=== PATIENT | male | born 1935 | race Caucasian/White ===

== ENCOUNTER → 2017-11-19 | Outpatient (CLI) | payer BC ==
[~2017-11-19] MED LIST: ASPEC81 PO; CHOL1000 PO; COQ10100 PO; FLV1 PO; GLC/500 PO; LOSA1TAB38 PO; METH2.5T PO; METO25TA56 PO; OMEG10007 PO; PRT/20 PO; ROSU5TAB PO; levaquin PO
--- NOTE | 2017-11-19 09:42 | DIAGNOSTIC IMAGING REPORT ---
CHEST 2 VIEWS ROUTINE CLINICAL HISTORY: COUGH COMPARISON STUDY: 01/29/2016 FINDINGS: The cardiac and mediastinal contours remain stable. There are postsurgical changes of a midline sternotomy. The heart is normal in size. There is no failure. There is no focal pulmonary consolidation. There are no pleural effusions. There are linear subsegmental atelectatic changes at the left lung base.[ IMPRESSION: Linear subsegmental atelectatic changes at the left lung base. Otherwise negative chest. Electronically signed by: Osmar Hercules M.D. 11/19/2017 9:41 AM Dictated Date/Time: 11/19/2017 9:40 AM
== END | disposition home or self-care (01) ==
LOC: C.RAD1850 09:24
PROVIDERS: ATTEND Family Medicine
DX: R05 Cough (principal); J98.11 Atelectasis

== ENCOUNTER → 2018-03-12 | Outpatient (CLI) | payer BC ==
[~2018-03-12] MED LIST changes: +AMLO2.5T PO; +B-CO1CAP5 PO; +PRED-301 PO
--- NOTE | 2018-03-12 13:38 | DIAGNOSTIC IMAGING REPORT ---
LUMBAR SPINE W/O CONTRAST HISTORY: Pain M48.061 TECHNIQUE: Multiplanar multisequence MRI of the lumbar spine was performed without the use of contrast. COMPARISON: None. FINDINGS: For the purpose of the report the L5-S1 disc space will be located on axial image of 30. Severe degenerative intervertebral disc change throughout the entire lumbar region. Grade 1/grade 2 retrolisthesis of L5 on S1 with a maximum posterior displacement of 6 mm. Degenerative changes of the vertebral endplates throughout. L1-L2: No significant central canal or neural foraminal narrowing. L2-L3: Broad-based bulging disc combined with posterior osteophytic reaction. Mild impact anterior aspect of thecal sac with mild osteophytic narrowing of the neuroforamina bilaterally. L3-L4: Moderate multifactorial narrowing of the spinal canal. Broad-based disc herniation accentuated by grade 1 anterolisthesis of L2 on L3. Moderate to rather significant narrowing of the neuroforamina bilaterally. Degenerative change posterior facets. L4-L5: Significant multifactorial spinal stenosis. This is secondary to a grade 1 reversal spondylolisthesis of L5. Severe narrowing of the neuroforamina bilaterally. Considerable degenerative change posterior facets. L5-S1: Moderate impact anterior thecal sac secondary to the grade 1 retrolisthesis of L5 on S1. Moderate narrowing of the neuroforamina bilaterally. Mild degenerative change posterior elements. IMPRESSION: 1. Severe degenerative change throughout the entire lumbar region. 2. Reversal spondylolisthesis of L5 on S1. 3. Minimal grade 1 anterolisthesis of L3 on L4. 4. Significant to severe multifactorial spinal stenosis L4-L5. This is associated with severe narrowing of the neuroforamina bilaterally. 5. Moderate multifactorial narrowing of spinal canal at L3-L4. This is combined with moderate to significant narrowing of the neuroforamina bilaterally. 6. Broad-based bulging disc and degenerative change throughout all remaining levels of lumbar region. The above report was generated using voice recognition software. It may contain grammatical, syntax or spelling errors. Electronically signed by: Gómez Garland M.D. 03/12/2018 1:37 PM Dictated Date/Time: 03/12/2018 1:28 PM
== END | disposition home or self-care (01) ==
LOC: C.MRIBC 12:21
PROVIDERS: ATTEND Orthopaedic Surgery Orthopaedic Surgery of the Spine
DX: M48.061 Spinal stenosis, lumbar region without neurogenic claudication (principal)

== ENCOUNTER → 2018-03-27 | Day surgery (SDC) | payer BC ==
[2018-03-19 14:11] VITALS: Ht 170.2 cm; Wt 72.7 kg
[~2018-03-27] VITALS: Ht 170.2 cm; Wt 72.7 kg
[~2018-03-27] MED LIST changes: +DEXAMETHASONE SOD INJ 4 MG/ML VIAL ONE; +LIDOCAINE HCL 1% MPF 5 ML VIAL ONE; -levaquin PO
--- NOTE | 2018-03-27 07:37 | History & Physical Bridge - SC ---
H&P Re-Evaluation Bridge Note: I have examined the patient, reviewed the History & Physical and in the interval since the performance of the History & Physical I have noted the following changes of clinical significance: No changes noted
--- NOTE | 2018-03-27 07:48 | Discharge Instructions-SurgCtr ---
Discharge Instructions Date of Service Mar 27, 2018. Visit Reason for Visit: Degenration Of Lumbar Intervertebral Disc Discharge Discharge Diagnosis / Problem: same Discharge Goals Goal(s): Improve function Activity Recommendations Activity Limitations: resume your previous activity Anesthesia . Post Anesthesia Instructions: If you have had General Anesthesia or IV Sedation: * Do not drive today. * Resume driving when surgeon permits. * Do not make important decisions or sign legal documents today. * Call surgeon for: 1. Temperature elevations greater than 101 degrees F. 2. Uncontrollable pain. 3. Excessive bleeding. 4. Persistent nausea and vomiting. 5. Medication intolerance (nausea, vomiting or rash). * For nausea and vomiting use only clear liquids such as: tea, soda, bouillon until nausea subsides, then gradually increase diet as tolerated. * If you have any concerns or questions, call your surgeon's office. If physician is unavailable and it is an emergency, call 911 or go to the nearest emergency room. . Diet Recommendations Home Diet: no limitations Pending Studies Studies pending at discharge: no Medical Emergencies . Who to Call and When: Medical Emergencies: If at any time you feel your situation is an emergency, please call 911 immediately. . Non-Emergent Contact Non-Emergency issues call your: Primary Care Provider . . "Provider Documentation" section prepared by Rob Dietrich. .
--- NOTE | 2018-03-27 08:11 | [facility] Post Operative Brief Note ---
Immediate Operative Summary Operative Date Mar 27, 2018. Pre-Operative Diagnosis LUMBAR SPONDYLOSIS Post-Operative Diagnosis SAME PREOP Procedure(s) Performed Epidural Steroid Injections L4-L5, L5-S1 Surgeon DR. Wilmar BOYLE Floor Layer Helper Surgeon(s) NONE Estimated Blood Loss 0 ML Findings Consistent with Post-Op Diagnosis Specimens NONE Anesthesia Type Local
[2018-03-27 08:14] VITALS: TEMP 37
[2018-03-27 08:34] VITALS: BP 155/82; PULSE 70; O2SAT 95
--- NOTE | 2018-03-27 08:34 | OPERATIVE REPORT ---
DATE OF OPERATION: 03/27/2018 PREOPERATIVE DIAGNOSIS: Spinal stenosis. POSTOPERATIVE DIAGNOSIS: Spinal stenosis. PROCEDURE: Epidural steroid injections, L4-L5, L5-S1 using a volume acceptance. DESCRIPTION OF PROCEDURE: The patient was taken to the minor procedure room at the surgical center. Prepped and draped sterile. I was able to engage the 22-gauge Tuohy needle to the epidural space at L4-L5 and L5-S1, 1 mL dexamethasone injected to each area without incident. The patient discharged home in improved, stable. I attest to the content of the Intraoperative Record and any orders documented therein. Any exception s are noted below.
== END | disposition home or self-care (01) ==
LOC: X.SURG 06:41
PROVIDERS: ATTEND Orthopaedic Surgery Orthopaedic Surgery of the Spine
DX: M48.00 Spinal stenosis, site unspecified (principal); I10 Essential (primary) hypertension; E11.9 Type 2 diabetes mellitus without complications

== ENCOUNTER 2019-09-21 22:31 | Observation (INO) ==
[2019-09-21] MEDS ORDERED: SODIUM CHLORIDE 0.9% 500 ML IV ONE (22:48)
[2019-09-21] MEDS ORDERED: METOPROLOL TARTRATE 1 MG/ML VIAL IV STA ×2 (22:48→23:32)
[2019-09-21 22:56] LABS: Basophils # (auto) 0.07 K/uL (0-0.2); Basophils % (auto) 0.9 %; Eosinophils # (auto) 0.55 K/uL (0-0.5); Eosinophils % (auto) 7.2 %; Hematocrit (blood only) 31.5 % (42-52); Hemoglobin 9.8 g/dL (14.0-18.0); Immature Granulocytes # (auto) 0.03 K/uL (0.00-0.02); Immature Granulocytes % (auto) 0.4 %; Lymphocytes # (auto) 1.51 K/uL (1.2-3.4); Lymphocytes % (auto) 19.9 %; Mean Corpuscular Hemoglobin 29.3 pg (25-34); Mean Corpuscular Hgb Conc 31.1 g/dL (32-36); Mean Corpuscular Volume 94.3 fL (80-100); Mean Platelet Volume 8.3 fL (7.4-10.4); Monocytes # (auto) 0.44 K/uL (0.11-0.59); Monocytes % (auto) 5.8 %; Neutrophils # (auto) 4.99 K/uL (1.4-6.5); Neutrophils % (auto) 65.8 %; Platelet Count 490 K/uL (130-400); RDW Coefficient of Variation 16.1 % (11.5-14.5); RDW Standard Deviation 54.9 fL (36.4-46.3); Red Blood Count 3.34 M/uL (4.7-6.1); White Blood Count 7.59 K/uL (4.8-10.8)
[2019-09-21 23:14] LABS: INR 1.1 (0.9-1.1); Partial Thromboplastin Time 27.6 Seconds (21.0-31.0); Prothrombin Time 11.1 Seconds (9.0-12.0)
[2019-09-21 23:16] LABS: BUN Creatinine Ratio 16.4 (10-20); Calcium 8.5 mg/dl (8.5-10.1); Creatinine Clr Calc Pharmacy 47.8 ml/min; Est GFR (African American) 68.3; Est GFR (Non-African American) 58.9; Potassium 4.1 mmol/L (3.5-5.1)
[2019-09-21 23:20] LABS: Albumin Globulin Ratio 0.8 (0.9-2); Bilirubin,Total 0.2 mg/dl (0.2-1); Globulin 3.7 gm/dl (2.5-4.0); Total Protein 6.7 gm/dl (6.4-8.2); Troponin I 0.022 ng/ml (0-0.045)
--- NOTE | 2019-09-22 00:52 | History & Physical Report ---
Date of Service September 22, 2019 Assessment & Plan (1) Atrial fibrillation with RVR: Atrial fibrillation with RVR/CAD/hypertension/lower extremity edema- Continue apixaban 5 mg p.o. twice daily, aspirin 81 mg daily, metoprolol tartrate 50 mg p.o. twice daily and telmisartan 40 mg p.o. daily. Hold amlodipine. He reports having had an echocardiogram about 3 to 4 months ago, prior to his recent lumbar spine surgery. He was given Lopressor 5 mg IV x2 by the ED with improved rate control. Consult his ground support equipment fitter Dr. Medel. Present on Admission?: Yes (2) CAD (coronary artery disease): See above Present on Admission?: Yes (3) Hypertension: See above Present on Admission?: Yes (4) Type 2 diabetes mellitus: Hold metformin. Placed on Accu-Cheks before meals and at bedtime with NovoLog coverage per scale. Present on Admission?: Yes (5) Rheumatoid arthritis: On methotrexate 15 mg p.o. weekly, which will be held. Continue folic acid 1 mg p.o. daily except methotrexate day. He typically takes prednisone 5 mg p.o. every morning. Will briefly increase his dosing to 10 mg to partially address adrenal insufficiency, and plan to discharge on his usual 5 mg dosing. Present on Admission?: Yes (6) GERD (gastroesophageal reflux disease): Continue pantoprazole 40 mg daily Present on Admission?: Yes (7) Lumbar stenosis with neurogenic claudication: Patient is status post surgery approximately 2 half weeks ago at [facility]. He is walking almost back to his usual pace. He had been taking pain medications regularly, but only as needed at this point. Present on Admission?: Yes (8) Benign prostatic hyperplasia with urinary obstruction: He is not on any specific treatment at this time, and denies symptoms. Present on Admission?: Yes History of Present Illness Chief Complaint: The patient presents to the emergency department with symptomatic palpitations, where he felt lightheaded and dizzy, similar to episode which happened in 2018. Primary Care Provider: Carlos Kraft DO The patient is an 84-year-old male with a past medical history including atrial fibrillation, BPH with OBS/LUTS, lumbar spinal stenosis with neurogenic claudication, history of CABG, CAD, diabetes mellitus type 2, hypertension and rheumatoid arthritis. He presents to the emergency department with an episode of symptomatic palpitations, where he was aware of his heart beating fast and irregularly, and felt lightheaded and dizzy. He reports when he checked his blood pressure at home his heart rate was around 145. He has similar episode in 2018, where he was in the hospital for 2 days. He follows with Dr. Medel from cardiology. He takes his Eliquis twice daily as directed. Allergies Allergy/AdvReac Type Severity Reaction Status Date / Time No Known Allergies Allergy Mild NONE Verified 09/21/19 23:14 Home Medications Home Medications Medication Instructions Recorded Confirmed Type B-complex with vitamin C [Super B 1 tab PO QAM 08/07/18 09/21/19 History Complex-Vitamin C] amlodipine [Norvasc] 2.5 mg PO QAM 08/07/18 09/21/19 History aspirin 81 mg PO HS 08/07/18 09/21/19 History cholecalciferol (vitamin D3) 1,000 unit PO QAM 08/07/18 09/21/19 History [Vitamin D3] coenzyme Q10 [CoQ-10] 100 mg PO QPM 08/07/18 09/21/19 History folic acid 1 mg PO QPM 08/07/18 09/21/19 History methotrexate sodium 15 mg PO WK 08/07/18 09/21/19 History olmesartan 40 mg PO QAM 08/07/18 09/21/19 History pantoprazole [Protonix] 40 mg PO QPM 08/07/18 09/21/19 History prednisone 5 mg PO QAM 08/07/18 09/21/19 History rosuvastatin [Crestor] 10 mg PO QPM 08/07/18 09/21/19 History apixaban 5 mg tablet 5 mg PO BID tab 09/04/18 09/21/19 History metoprolol tartrate 50 mg tablet 50 mg PO BID tab 09/04/18 09/21/19 History diphenhydramine HCl [Allergy] 25 mg PO HS 09/21/19 09/21/19 History hydrocodone-acetaminophen 1 tab PO Q4 PRN 09/21/19 09/21/19 History metformin 500 mg PO QPM 09/21/19 09/21/19 History omega 7-kpm-nol-fish oil [Fish Oil] 1 cap PO HS 09/21/19 09/21/19 History Past Med/Surg History Medical History A-fib PAROXYSMAL; ON APIXABAN Benign prostatic hyperplasia with urinary obstruction CAD (coronary artery disease) S/P CABG X 3 (2006) Chronic back pain Dysuria Hyperlipidemia Hypertension Myocardial Infarction S/P CABG X 3 (2006) Rheumatoid arthritis Sleep apnea NON-COMPLIANT WITH MACHINE Type 2 diabetes mellitus NIDDM Surgical History H/O repair of left rotator cuff X 2 H/O repair of right rotator cuff History of cataract extraction BILAT History of cholecystectomy History of colonoscopy History of esophagogastroduodenoscopy (EGD) History of tooth extraction Hx of CABG S/P CABG X 3 (2006) S/P left knee arthroscopy Family History Sister Family history of diabetes mellitus Social History Preferred Language: Citizen Of [place] Communication Ability: Effective Visual Impairment: Limited Hearing Ability: Normal Seo Team Lead Required: No Beliefs That Will Affect Care: None marital status: Current Living Situation: Spouse current occupational status: retired Other Information That Helps Us Care for You: No Feels Safe at Home: Yes Safety Concerns: Feels Safe At This Time Smoking Status: Never smoker Tobacco Type: cigarettes ; Do You Dip or Chew Tobacco: No ; Second Hand Exposure: No ; Tobacco Cessation Education Requested by Patient: No Hx Alcohol Use: No Hx Substance Use: No Review of Systems Review of Systems: The patient denies chest pain, shortness of breath, dyspnea on exertion, cough, lower extremity swelling, sore throat, fevers, chills, sweats, nausea, vomiting, diarrhea , constipation, abdominal pain, pelvic pain, blood in urine or stool, dysuria, urinary frequency or urgency, headache, memory loss, loss of consciousness, rash, abnormal bruising or bleeding, imbalance, focal or generalized weakness, numbness or tingling in arms or legs, generalized arthralgias or myalgias, back or neck pain, or night sweats. The review of systems is otherwise negative other than for that already noted above, and at least 10 systems have been reviewed. Physical Exam Physical Exam: The patient is awake, alert and oriented 3, well developed and well nourished, normocephalic and atraumatic, lying in bed and in no acute distress. HEENT--PERRL, EOMI, mucous membranes and oropharynx dry. Neck--supple. No JVD. No bruits. Thyroid normal, trachea midline, no adenopathy. Heart--irregularly irregular and tachycardic. No murmurs, rubs or gallops. Lungs--clear bilaterally, no respiratory distress, no accessory muscle use. Abdomen--normal bowel sounds and soft. Nontender. Nondistended, no hernias or masses, no organomegaly. Extremities--no cyanosis or clubbing. There is 1+ bilateral pretibial pitting edema. There are good distal pulses b/l. Dermatologic--normal skin turgor, normal color, no abnormal lymph nodes, no rash. Neurologic--cranial nerves II through XII grossly intact. Rheumatologic--normal range of motion. Psychiatric--normal affect. Results & Data Vital Signs (Past 12 Hours) Vital Signs Temp Pulse Pulse Resp BP BP Pulse Ox 09/22/19 00:46 122 H 20 104/66 95 09/21/19 23:41 105 H 20 100/67 94 09/21/19 23:40 107 H 100/67 09/21/19 23:13 107 H 20 112/72 96 09/21/19 22:57 123 H 126/85 09/21/19 22:48 96 09/21/19 22:42 98.2 F 127 H 24 126/85 96 Laboratory Results Laboratory Results WBC 7.59 K/uL (4.8-10.8) 09/21/19 22:46 RBC 3.34 M/uL (4.7-6.1) L 09/21/19 22:46 Hgb 9.8 g/dL (14.0-18.0) L 09/21/19 22:46 Hct 31.5 % (42-52) L 09/21/19 22:46 MCV 94.3 fL (80-100) 09/21/19 22:46 MCH 29.3 pg (25-34) 09/21/19 22:46 MCHC 31.1 g/dL (32-36) L 09/21/19 22:46 RDW Std Deviation 54.9 fL (36.4-46.3) H 09/21/19 22:46 RDW Coeff of Ari 16.1 % (11.5-14.5) H 09/21/19 22:46 Plt Count 490 K/uL (130-400) H 09/21/19 22:46 MPV 8.3 fL (7.4-10.4) 09/21/19 22:46 Immature Gran % (Auto) 0.4 % 09/21/19 22:46 Neut % (Auto) 65.8 % 09/21/19 22:46 Lymph % (Auto) 19.9 % 09/21/19 22:46 [place]ding % (Auto) 5.8 % 09/21/19 22:46 Eos % (Auto) 7.2 % 09/21/19 22:46 Baso % (Auto) 0.9 % 09/21/19 22:46 Immature Gran # (Auto) 0.03 K/uL (0.00-0.02) H 09/21/19 22:46 Neut # (Auto) 4.99 K/uL (1.4-6.5) 09/21/19 22:46 Lymph # (Auto) 1.51 K/uL (1.2-3.4) 09/21/19 22:46 Spalding # (Auto) 0.44 K/uL (0.11-0.59) 09/21/19 22:46 Eos # (Auto) 0.55 K/uL (0-0.5) H 09/21/19 22:46 Baso # (Auto) 0.07 K/uL (0-0.2) 09/21/19 22:46 PT 11.1 Seconds (9.0-12.0) 09/21/19 22:46 INR 1.1 (0.9-1.1) 09/21/19 22:46 APTT 27.6 Seconds (21.0-31.0) 09/21/19 22:46 PTT Ratio 1.0 09/21/19 22:46 Sodium 136 mmol/L (136-145) 09/21/19 22:46 Potassium 4.1 mmol/L (3.5-5.1) 09/21/19 22:46 Chloride 103 mmol/L (98-107) 09/21/19 22:46 Carbon Dioxide 29 mmol/L (21-32) 09/21/19 22:46 Anion Gap 4.0 (3-11) 09/21/19 22:46 BUN 19 mg/dl (7-18) H 09/21/19 22:46 Creatinine 1.13 mg/dl (0.6-1.4) 09/21/19 22:46 Est Cr Clr Drug Dosing 47.8 ml/min 09/21/19 22:46 Est GFR ( Amer) 68.3 09/21/19 22:46 Est GFR (Non-Af Amer) 58.9 09/21/19 22:46 BUN/Creatinine Ratio 16.4 (10-20) 09/21/19 22:46 Glucose 192 mg/dl (70-99) H 09/21/19 22:46 Calcium 8.5 mg/dl (8.5-10.1) 09/21/19 22:46 Magnesium 2.2 mg/dl (1.8-2.4) 09/22/19 02:05 Total Bilirubin 0.2 mg/dl (0.2-1) 09/21/19 22:46 AST 17 U/L (15-37) 09/21/19 22:46 ALT 26 U/L (12-78) 09/21/19 22:46 Alkaline Phosphatase 122 U/L (45-117) H 09/21/19 22:46 Troponin I 0.313 ng/ml (0-0.045) H* 09/22/19 02:05 Total Protein 6.7 gm/dl (6.4-8.2) 09/21/19 22:46 Albumin 3.0 gm/dl (3.4-5.0) L 09/21/19 22:46 Globulin 3.7 gm/dl (2.5-4.0) 09/21/19 22:46 Albumin/Globulin Ratio 0.8 (0.9-2) L 09/21/19 22:46 Lipase 397 U/L (73-393) H 09/21/19 22:46 Code Status & VTE Plan Code Status Full code VTE Prophylaxis Plan VTE Prophylaxis will be ordered: Yes PG Care Time/CCT Total # of Minutes Spent Total Time Spent with Patient: Total time spent is greater than 50% in coordination of care (as documented) at patient's floor/unit and/or counseling patient: Coding Level of Care Code 00632 Initial Inpt Care Lvl 3 Diagnoses Atrial fibrillation with RVR I48.91 CAD (coronary artery disease) I25.10 Hypertension I10 Type 2 diabetes mellitus E11.9 Rheumatoid arthritis M06.9 GERD (gastroesophageal reflux disease) K21.9 Lumbar stenosis with neurogenic claudication M48.062 Benign prostatic hyperplasia with urinary obstruction N40.1; N13.8
--- NOTE | 2019-09-22 01:03 | Emergency Department Note ---
Entered by Alee Moise acting as a scribe for History of Present Illness General Chief complaint: Arrhythmia/Palpitations Stated complaint: TACHYCARDIA Source: patient History of Present Illness Onset (ago): minute(s) (30) Location: chest Pain Consistency: + constant Quality: + other (increased heart race) Associated symptoms: + headaches and + other (lightheadedness, pain or burning with urination, feelings of being off balance); no nausea/vomiting and no shortness of breath The patient is a 84 year old male who presents to the Emergency Room with complaints of an constant increased heart rate beginning 30 minutes ago. The patient states he was walking around in his home when he felt his pulse racing and called EMS. He reports a headache. The patient denies lightheadedness, shortness of breath, nausea, vomiting, pain or burning with urination, and feelings of being off balance. The patient reports similar symptoms previously. He notes that it was his a-fib. The patient reports he took his evening and morning pills in reverse tonight. The patient denies missing any doses of his E liquis. He does report recent back surgery and states he was off of his Eliquis for five days following. Home Medications Home Medications Medication Instructions Recorded Confirmed Type B-complex with vitamin C [Super B 1 tab PO QAM 08/07/18 09/21/19 History Complex-Vitamin C] amlodipine [Norvasc] 2.5 mg PO QAM 08/07/18 09/21/19 History aspirin 81 mg PO HS 08/07/18 09/21/19 History cholecalciferol (vitamin D3) 1,000 unit PO QAM 08/07/18 09/21/19 History [Vitamin D3] coenzyme Q10 [CoQ-10] 100 mg PO QPM 08/07/18 09/21/19 History folic acid 1 mg PO QPM 08/07/18 09/21/19 History methotrexate sodium 15 mg PO WK 08/07/18 09/21/19 History olmesartan 40 mg PO QAM 08/07/18 09/21/19 History pantoprazole [Protonix] 40 mg PO QPM 08/07/18 09/21/19 History prednisone 5 mg PO QAM 08/07/18 09/21/19 History rosuvastatin [Crestor] 10 mg PO QPM 08/07/18 09/21/19 History apixaban 5 mg tablet 5 mg PO BID tab 09/04/18 09/21/19 History metoprolol tartrate 50 mg tablet 50 mg PO BID tab 09/04/18 09/21/19 History diphenhydramine HCl [Allergy] 25 mg PO HS 09/21/19 09/21/19 History hydrocodone-acetaminophen 1 tab PO Q4 PRN 09/21/19 09/21/19 History metformin 500 mg PO QPM 09/21/19 09/21/19 History omega 1-hoo-jqw-fish oil [Fish Oil] 1 cap PO HS 09/21/19 09/21/19 History Allergies Allergy/AdvReac Type Severity Reaction Status Date / Time No Known Allergies Allergy Mild NONE Verified 09/21/19 23:14 Past Med/Surg History Medical History A-fib PAROXYSMAL; ON APIXABAN Benign prostatic hyperplasia with urinary obstruction CAD (coronary artery disease) S/P CABG X 3 (2006) Chronic back pain Dysuria Hyperlipidemia Hypertension Myocardial Infarction S/P CABG X 3 (2006) Rheumatoid arthritis Sleep apnea NON-COMPLIANT WITH MACHINE Type 2 diabetes mellitus NIDDM Surgical History H/O repair of left rotator cuff X 2 H/O repair of right rotator cuff History of cataract extraction BILAT History of cholecystectomy History of colonoscopy History of esophagogastroduodenoscopy (EGD) History of tooth extraction Hx of CABG S/P CABG X 3 (2006) S/P left knee arthroscopy Family History Sister Family history of diabetes mellitus Social History Preferred Language: German Communication Ability: Effective Visual Impairment: Limited Hearing Ability: Normal 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 and A total of 10 systems reviewed and were otherwise negative Physical Exam Vital Signs Vital Signs - 24 hr 09/21/19 22:42 09/21/19 22:48 09/21/19 22:57 Temperature 36.8 C Temperature Source Oral Pulse Rate 127 H 123 H Pulse Rate [Right Finger] Pulse Rhythm Irregular Pulse Rhythm [Right Finger] Pulse Strength Normal Pulse Strength [Right Finger] Respiratory Rate 24 Respiratory Effort / Characteristics Non-Labored Spontaneous Respiratory Depth Normal Respiratory Pattern Regular Blood Pressure 126/85 126/85 Blood Pressure [Right Arm] Blood Pressure Mean 98 Blood Pressure Mean [Right Arm] Blood Pressure Position Sitting Blood Pressure Position [Right Arm] Pulse Oximetry 96 96 Oxygen Delivery Method Room Air Room Air Sepsis Recent Fever Within 48 Hours No Sepsis New/Unexplained Change in Mental Status No Sepsis Action Taken by Nursing No Action Required 09/21/19 23:13 09/21/19 23:40 09/21/19 23:41 Temperature Temperature Source Pulse Rate 107 H Pulse Rate [Right Finger] 107 H 105 H Pulse Rhythm Pulse Rhythm [Right Finger] Regular Regular Pulse Strength Pulse Strength [Right Finger] Normal Normal Respiratory Rate 20 20 Respiratory Effort / Characteristics Non-Labored Spontaneous Non-Labored Spontaneous Respiratory Depth Normal Normal Respiratory Pattern Regular Regular Blood Pressure 100/67 Blood Pressure [Right Arm] 112/72 100/67 Blood Pressure Mean Blood Pressure Mean [Right Arm] 85 78 Blood Pressure Position Blood Pressure Position [Right Arm] Sitting Pulse Oximetry 96 94 Oxygen Delivery Method Room Air Room Air Sepsis Recent Fever Within 48 Hours Sepsis New/Unexplained Change in Mental Status Sepsis Action Taken by Nursing 09/22/19 00:46 Temperature Temperature Source Pulse Rate Pulse Rate [Right Finger] 122 H Pulse Rhythm Pulse Rhythm [Right Finger] Pulse Strength Pulse Strength [Right Finger] Respiratory Rate 20 Respiratory Effort / Characteristics Non-Labored Spontaneous Respiratory Depth Normal Respiratory Pattern Regular Blood Pressure Blood Pressure [Right Arm] 104/66 Blood Pressure Mean Blood Pressure Mean [Right Arm] 78 Blood Pressure Position Blood Pressure Position [Right Arm] Pulse Oximetry 95 Oxygen Delivery Method Room Air Sepsis Recent Fever Within 48 Hours Sepsis New/Unexplained Change in Mental Status Sepsis Action Taken by Nursing GENERAL: sitting up in bed, no acute distress, non-toxic EYE EXAM: normal conjunctiva OROPHARYNX: no exudate, no erythema, lips, buccal mucosa, and tongue normal and mucous membranes are moist NECK: supple, no nuchal rigidity, no adenopathy, non-tender LUNGS: Clear to auscultation. Normal chest wall mechanics HEART: Tachycardic rate, irregularly irregular rhythm, no murmurs, S1 normal and S2 normal ABDOMEN: abdomen soft, non-tender, normo-active bowel sounds, no masses, no rebound or guarding. BACK: Midline incision is clean dry and intact in the lower lumbar region. SKIN: no rashes and no bruising UPPER EXTREMITIES: upper extremities are grossly normal. LOWER EXTREMITIES: No pitting edema. Calves equal bilaterally NEURO EXAM: Normal sensorium, cranial nerves II-XII grossly intact, normal speech, no gross weakness of arms, no gross weakness of legs. Course Course ED COURSE: Vital signs were reviewed and showed to be tachycardic. The patients medical record was reviewed The above diagnostic studies were performed and reviewed. ED treatments and interventions as stated above. 2240: The patient was evaluated in room B04B. A complete history and physical examination was performed. 2330: Upon reevaluation, the patient's heart rate was in the 120s. I discussed my findings with the patient and he understands and agrees with the treatment plan. Based on the patients age, coexisting illnesses, exam and lab findings the decision to treat as an inpatient was made. I reviewed the patient's case with Dr. Mckeon - [facility] Hospitalist who will evaluate the patient for further management. The patient remained stable while under my care. The patient will be evaluated for further management. Administered Medications Discontinued Medications Sodium Chloride (Nss) 500 mls @ 999 mls/hr IV .Q31M ONE Stop: 09/21/19 23:18 Last Infusion: 09/21/19 23:55 Dose: 0 mls/hr Documented by: [id number] Admin: 09/21/19 22:58 Dose: 999 mls/hr Documented by: [id number] Metoprolol Tartrate (Lopressor) 5 mg IV NOW STA Stop: 09/21/19 22:49 Last Admin: 09/21/19 22:57 Dose: 5 mg Documented by: [id number] Metoprolol Tartrate (Lopressor) 5 mg IV NOW STA Stop: 09/21/19 23:33 Last Admin: 09/21/19 23:40 Dose: 5 mg Documented by: [id number] Critical Care Time Critical Care Time: Yes Total Critical Care Time: 35 I have personally spent 35 minutes of critical care time in the direct management of this patient. This includes bedside care, interpretation of diagnostic studies, and testing, discussion with consultants, patient, and family members, and other required patient management activities. This 35 minutes is in excess of all separately billable procedures. Medical Decision Making Differential Diagnosis Differential diagnosis includes etiologies such as benign positional vertigo, dehydration, hypovolemia, anemia, tumor, infection, hypoglycemia, electrolyte abnormalities, cardiac sources, intracerebral event, toxicologic, neurologic, as well as others were entertained. Medical Records Attestation: I reviewed the patient's medical records. Home Medications Current Medication List: was personally reviewed by me Laboratory Data Attestation: I reviewed the patient's lab results. Result diagrams: 09/21/19 22:46 09/21/19 22:46 Lab Results 09/21/19 09/21/19 09/21/19 Range/Units 22:46 22:46 22:46 WBC 7.59 (4.8-10.8) K/uL RBC 3.34 L (4.7-6.1) M/uL Hgb 9.8 L (14.0-18.0) g/dL Hct 31.5 L (42-52) % MCV 94.3 (80-100) fL MCH 29.3 (25-34) pg MCHC 31.1 L (32-36) g/dL RDW Std Deviation 54.9 H (36.4-46.3) fL RDW Coeff of Ari 16.1 H (11.5-14.5) % Plt Count 490 H (130-400) K/uL MPV 8.3 (7.4-10.4) fL Immature Gran % (Auto) 0.4 % Neut % (Auto) 65.8 % Lymph % (Auto) 19.9 % Gosper % (Auto) 5.8 % Eos % (Auto) 7.2 % Baso % (Auto) 0.9 % Immature Gran # (Auto) 0.03 H (0.00-0.02) K/uL Neut # (Auto) 4.99 (1.4-6.5) K/uL Lymph # (Auto) 1.51 (1.2-3.4) K/uL Gosper # (Auto) 0.44 (0.11-0.59) K/uL Eos # (Auto) 0.55 H (0-0.5) K/uL Baso # (Auto) 0.07 (0-0.2) K/uL PT 11.1 (9.0-12.0) Seconds INR 1.1 (0.9-1.1) APTT 27.6 (21.0-31.0) Seconds PTT Ratio 1.0 Sodium 136 (136-145) mmol/L Potassium 4.1 (3.5-5.1) mmol/L Chloride 103 (98-107) mmol/L Carbon Dioxide 29 (21-32) mmol/L Anion Gap 4.0 (3-11) BUN 19 H (7-18) mg/dl Creatinine 1.13 (0.6-1.4) mg/dl Est Cr Clr Drug Dosing 47.8 ml/min Est GFR ( Amer) 68.3 Est GFR (Non-Af Amer) 58.9 BUN/Creatinine Ratio 16.4 (10-20) Glucose 192 H (70-99) mg/dl Calcium 8.5 (8.5-10.1) mg/dl Total Bilirubin 0.2 (0.2-1) mg/dl AST 17 (15-37) U/L ALT 26 (12-78) U/L Alkaline Phosphatase 122 H (45-117) U/L Troponin I 0.022 (0-0.045) ng/ml Total Protein 6.7 (6.4-8.2) gm/dl Albumin 3.0 L (3.4-5.0) gm/dl Globulin 3.7 (2.5-4.0) gm/dl Albumin/Globulin Ratio 0.8 L (0.9-2) Lipase 397 H (73-393) U/L Imaging Data Attestation: I personally reviewed and interpreted this imaging study as follows: My Impression: Portable XR chest 1 view: no local infiltrate, atelectasis in left lower lobe, sternotomy wires in place ECG Data Attestation: I personally reviewed and interpreted this ECG as follows: Indication: + palpitations Rate (beats per minute): 120 Rhythm: + atrial fibrillation (RVR) ECG Intervals/blocks: + Normal QT-c ECG ST segments: + T-wave inversions (Inferior) ECG Findings: no PVCs Blood Pressure Blood Pressure Findings: Low blood pressure Blood Pressure Disposition: further management by hospitalist LEONARDO Mckinney Patient is an 84-year-old male who presents the ER for not feeling well with a past medical history CAD hypertension A. fib on Eliquis. Upon presentation he was found to be in A. fib with RVR. IV was established blood work was obtained showed no significant leukocytosis. Hemoglobin was stable at 10. Slightly decreased from 10.6 previously. INR was unremarkable. BMP along with LFTs bilirubin and lipase was remarkable for a slightly elevated lipase at 397. Troponin was detectable but not positive. EKG shows A. fib RVR. Chest x-ray without any focal infiltrate. Chest x-ray was interpreted by myself. Patient was given 2 doses of IV Lopressor. He was updated bedside. Heart rate trended down to the low 100s. Patient was admitted for A. fib with RVR dizzi ness/lightheadedness. Impression & Plan Atrial fibrillation with RVR, Lightheadedness, Weakness Discharge Plan Visit Data Chief Complaint: Arrhythmia/Palpitations Stated Complaint: TACHYCARDIA ED Provider: Jeronimo Tolbert Discharge Problem: Atrial fibrillation with RVR, Lightheadedness, Weakness Patient Disposition: Being Evaluated by Hospitalist Forms Stand Alone Forms: [facility] Prescriptions Prescriptions: No Action apixaban [Eliquis] 5 mg tablet 5 mg PO BID RF: 0 prednisone 5 mg Tablet 5 mg PO QAM RF: 0 amlodipine [Norvasc] 2.5 mg Tablet 2.5 mg PO QAM RF: 0 aspirin 81 mg Tablet,Delayed Release (Dr/Ec) 81 mg PO HS RF: 0 methotrexate sodium 2.5 mg Tablet 15 mg PO WK RF: 0 pantoprazole [Protonix] 40 mg Tablet,Delayed Release (Dr/Ec) 40 mg PO QPM RF: 0 folic acid 1 mg Tablet 1 mg PO QPM RF: 0 B-complex with vitamin C [Super B Complex-Vitamin C] Tablet 1 tab PO QAM RF: 0 olmesartan 40 mg tablet 40 mg PO QAM RF: 0 coenzyme Q10 [CoQ-10] 100 mg Capsule 100 mg PO QPM RF: 0 rosuvastatin [Crestor] 10 mg Tablet 10 mg PO QPM RF: 0 cholecalciferol (vitamin D3) [Vitamin D3] 1,000 unit Tablet 1,000 unit PO QAM RF: 0 metoprolol tartrate [Lopressor] 50 mg tablet 50 mg PO BID RF: 0 hydrocodone-acetaminophen 5-325 mg tablet 1 tab PO Q4 PRN (Reason: Pain) RF: 0 metformin 500 mg tablet extended release 24 hr 500 mg PO QPM RF: 0 diphenhydramine HCl [Allergy] 25 mg Tablet 25 mg PO HS RF: 0 omega 7-gml-xif-fish oil [Fish Oil] 1,000 mg (120 mg-180 mg) Capsule 1 cap PO HS RF: 0 Referrals Referrals: Carlos Kraft, [Primary Care Provider] - The scribe's documentation has been prepared under my direction and personally reviewed by me in its entirety. I confirm that the note above accurately reflects all work, treatment, procedures, and medical decision making performed by me.
[2019-09-22] MEDS ORDERED: ONDANSETRON INJ 2 MG/ML 2 ML VIAL IV PRN (01:39)
[2019-09-22] MEDS ORDERED: GLUCAGON FOR INJ 1 MG VIAL SQ PRN (01:39)
[2019-09-22] MEDS ORDERED: GLUCOSE 40% GEL 15 GM TUBE PO PRN (01:39)
[2019-09-22] MEDS ORDERED: DEXTROSE 50% 50 ML SYRINGE IV PRN (01:39)
[2019-09-22] MEDS ORDERED: MAGNESIUM HYDROXIDE SUSP 30 ML UDC PO PRN (01:39)
[2019-09-22] MEDS ORDERED: ACETAMINOPHEN 325 MG TAB PO PRN (01:39)
[2019-09-22] MEDS ORDERED: CARBOHYDRATES FOR HYPOGLYCEMIA PO PRN (01:39)
[2019-09-22] MEDS ORDERED: GLUCOSE 10 TABS/TUBE PO PRN (01:39)
[2019-09-22] MEDS ORDERED: POLYETHYLENE (MIRALAX) 17 GM PACK PO PRN (01:39)
[2019-09-22] MEDS ORDERED: ALUMINUM/MAGNESIUM SUSP 30 ML UDC PO PRN (01:39)
[2019-09-22] MEDS: HYDROCODONE/ACETAMOPHEN 5/325MG TAB PO PRN ×5 (01:55→20:59)
[2019-09-22] MEDS: ALBUMIN 25% 50 ML IV SCH ×2 (02:02→02:40)
[2019-09-22 03:12] LABS: Magnesium 2.2 mg/dl (1.8-2.4); Troponin I 0.313 ng/ml (0-0.045)
[2019-09-22 06:57] LABS: INR 1.1 (0.9-1.1); Partial Thromboplastin Time 27.8 Seconds (21.0-31.0); Prothrombin Time 11.6 Seconds (9.0-12.0)
[2019-09-22 07:12] LABS: Albumin Level 3.3 gm/dl (3.4-5.0); BUN Creatinine Ratio 13.8 (10-20); Calcium 8.6 mg/dl (8.5-10.1); Creatinine Clr Calc Pharmacy 50.9 ml/min; Est GFR (African American) 73.8; Est GFR (Non-African American) 63.7; Potassium 4.4 mmol/L (3.5-5.1)
[2019-09-22 07:13] LABS: Phosphorus 2.7 mg/dl (2.5-4.9)
[2019-09-22 07:41] LABS: Estimated Average Glucose 166 mg/dl; Hemoglobin A1C 7.4 % (4.5-5.6)
--- NOTE | 2019-09-22 07:57 | XRay Report ---
XR chest 1V portable CLINICAL HISTORY: 84 years-old Male presenting with Chest Pain. TECHNIQUE: Portable upright AP view of the chest was obtained. COMPARISON: 06/07/2019. FINDINGS: Median sternotomy wires and mediastinal surgical clips noted. Atherosclerosis of the aortic arch. Car diac silhouette normal in size. Mildly low lung volumes. Minimal basilar opacities. Faint right apica l opacity is also noted, present on prior exam. No pleural effusion or pneumothorax. Degenerative asiya nges of the thoracic spine. Upper abdomen normal. IMPRESSION: 1. Faint right apical opacity present on prior exam may represent pleural parenchymal scarring and i s grossly unchanged. 2. Minimal basilar opacities likely atelectasis or scarring. ACT 112: Negative or not required by law. Electronically signed by: Duane Miller M.D. 09/22/2019 7:56 AM
[2019-09-22] MEDS: CHOLECALCIFEROL 1,000 UNITS 25 MCG TAB PO SCH (08:18)
[2019-09-22] MEDS: predniSONE 10 MG TABLET PO SCH (08:18)
[2019-09-22] MEDS: VITAMIN B COMPLEX TAB PO SCH (08:18)
[2019-09-22] MEDS: OLMESARTAN MEDOXOMIL 40 MG TAB PO SCH (08:18)
[2019-09-22] MEDS: APIXABAN 5 MG TABLET PO SCH ×2 (08:18→20:07)
[2019-09-22] MEDS: INSULIN ASPART 100 UNITS/ML 3 ML PEN SC SCH ×4 (08:24→20:10)
[2019-09-22] MEDS ORDERED: METOPROLOL TARTRATE 1 MG/ML VIAL IV PRN (08:56)
[2019-09-22] MEDS: METOPROLOL TARTRATE 50 MG TAB PO SCH ×3 (09:50→20:07)
--- NOTE | 2019-09-22 12:21 | Cardiology Consultation ---
Date of Consultation September 22, 2019 History of Present Illness Attending Physician: Francisco Mccray MD History of Present Illness The patient is an 84-year-old male with a past medical history significant for coronary artery disease history of paroxysmal atrial fibrillation diabetes mellitus and hyperlipidemia is being seen today in a consultation for atrial fibrillation with a rapid ventricular response. Patient notes that he was in his usual state of health and does follow-up with Dr. Wolf in cardiology and was resting comfortably watching a political program when he suddenly developed palpitations and felt his heart was racing. He felt associated lightheadedness but denied any shortness of breath chest pain or any other complaints. This subsequently prompted him to go to the emergency department where he was found to be in the atrial fibrillation with rapid ventricular response and was admitted to the hospitalist service. The time cardiology was subsequently consulted. At the time of my consultation the patient was resting comfortably and appeared to be in normal sinus rhythm he had no longer had any symptoms of palpitations lightheadedness or any other complaints. He was feeling much better at the time of consultation. Allergies Allergy/AdvReac Type Severity Reaction Status Date / Time No Known Allergies Allergy Mild NONE Verified 09/21/19 23:14 Home Medications Home Medications Medication Instructions Recorded Confirmed Type B-complex with vitamin C [Super B 1 tab PO QAM 08/07/18 09/21/19 History Complex-Vitamin C] amlodipine [Norvasc] 2.5 mg PO QAM 08/07/18 09/21/19 History aspirin 81 mg PO HS 08/07/18 09/21/19 History cholecalciferol (vitamin D3) 1,000 unit PO QAM 08/07/18 09/21/19 History [Vitamin D3] coenzyme Q10 [CoQ-10] 100 mg PO QPM 08/07/18 09/21/19 History folic acid 1 mg PO QPM 08/07/18 09/21/19 History methotrexate sodium 15 mg PO WK 08/07/18 09/21/19 History olmesartan 40 mg PO QAM 08/07/18 09/21/19 History pantoprazole [Protonix] 40 mg PO QPM 08/07/18 09/21/19 History prednisone 5 mg PO QAM 08/07/18 09/21/19 History rosuvastatin [Crestor] 10 mg PO QPM 08/07/18 09/21/19 History apixaban 5 mg tablet 5 mg PO BID tab 09/04/18 09/21/19 History metoprolol tartrate 50 mg tablet 50 mg PO BID tab 09/04/18 09/21/19 History diphenhydramine HCl [Allergy] 25 mg PO HS 09/21/19 09/21/19 History hydrocodone-acetaminophen 1 tab PO Q4 PRN 09/21/19 09/21/19 History metformin 500 mg PO QPM 09/21/19 09/21/19 History omega 4-otb-sfq-fish oil [Fish Oil] 1 cap PO HS 09/21/19 09/21/19 History Patient History Medical History (Updated 09/22/19 @ 06:06 by Eitan Mckeon MD) A-fib PAROXYSMAL; ON APIXABAN Benign prostatic hyperplasia with urinary obstruction CAD (coronary artery disease) S/P CABG X 3 (2006) Chronic back pain Dysuria GERD (gastroesophageal reflux disease) Hyperlipidemia Hypertension Myocardial Infarction S/P CABG X 3 (2006) Rheumatoid arthritis Sleep apnea NON-COMPLIANT WITH MACHINE Type 2 diabetes mellitus NIDDM Surgical History H/O repair of left rotator cuff X 2 H/O repair of right rotator cuff History of cataract extraction BILAT History of cholecystectomy History of colonoscopy History of esophagogastroduodenoscopy (EGD) History of tooth extraction Hx of CABG S/P CABG X 3 (2006) S/P left knee arthroscopy Family History Sister Family history of diabetes mellitus Social History Preferred Language: Korean Communication Ability: Effective Visual Impairment: Limited Hearing Ability: Normal Career Development Specialist Required: No Beliefs That Will Affect Care: None marital status: Current Living Situation: Spouse current occupational status: retired Other Information That Helps Us Care for You: No Feels Safe at Home: Yes Safety Concerns: Feels Safe At This Time Smoking Status: Never smoker Tobacco Type: cigarettes ; Do You Dip or Chew Tobacco: No ; Second Hand Exposure: No ; Tobacco Cessation Education Requested by Patient: No Hx Alcohol Use: No Hx Substance Use: No Review of Systems Review of Systems: All systems reviewed & are unremarkable except as noted in HPI & below Physical Exam Physical Exam: General : AAOx3 in NAD HEENT : NCAT Neck : supple, No JVD, bruits CV : Irregularly irregular soft 1/6 GUERO apex Lungs: CTA b/l Abd. : NTND, +BS ext: No C/C/E Neuro : grossly non-focal Results & Data Vital Signs (Past 12 Hours) Vital Signs Temp Pulse Pulse Resp BP BP BP 09/22/19 10:59 36.5 C 99 H 16 102/62 09/22/19 10:27 118 H 112/58 L 09/22/19 09:21 132 H 09/22/19 08:06 145 H 96/64 L 09/22/19 06:47 36.7 C 112 H 18 97/59 L 09/22/19 03:57 37.0 C 109 H 18 102/66 09/22/19 02:51 110 H 09/22/19 01:56 36.9 C 131 H 20 117/78 09/22/19 00:46 122 H 20 104/66 Pulse Ox 09/22/19 10:59 97 09/22/19 10:27 09/22/19 09:21 09/22/19 08:06 09/22/19 06:47 95 09/22/19 03:57 94 09/22/19 02:51 09/22/19 01:56 95 09/22/19 00:46 95 Impression : 1. Atrial Fibrillation with RVR 2. CAD 3. HTN 4. Hyperlipidemia Recommendations : 1. Currently rate controlled and appears to be in NSR now. Will continue current regimen and will titrate as needed to keep HR less than 100 bpm. Continue apixaban. Continue telemetry monitoring. Patient does follow with Dr. Medel his primary fly setter. 2. Will continue GDMT for his CAD and recommend EKG daily as well as trending troponins.TTE 3. BP is low normal continue to monitor 4. Continue Statin low fat heart-healthy diet
--- NOTE | 2019-09-22 14:16 | Electrocardiogram Report ---
Test Reason : Blood Pressure : / mmHG Vent. Rate : 120 BPM Atrial Rate : 092 BPM P-R Int : 000 ms QRS Dur : 090 ms QT Int : 310 ms P-R-T Axes : 000 006 -17 degrees QTc Int : 438 ms Atrial fibrillation with rapid ventricular response Abnormal ECG When compared with ECG of 25-MAY-2018 13:36, Atrial fibrillation has replaced Sinus rhythm Vent. rate has increased BY 52 BPM T wave inversion now evident in Inferior leads Confirmed by Gaurav Matthew ([id number]) on 09/22/2019 2:15:44 PM Referred By: REFERRED SELF Confirmed By:Gaurav Matthew
--- NOTE | 2019-09-22 16:55 | Hospitalist Progress Note ---
Date of Service September 22, 2019 Assessment & Plan (1) Atrial fibrillation with RVR: Atrial fibrillation with RVR/CAD/hypertension/lower extremity edema- Continue apixaban 5 mg p.o. twice daily, aspirin 81 mg daily, metoprolol tartrate 50 mg p.o. twice daily and telmisartan 40 mg p.o. daily. Continue to hold amlodipine. He reports having had an echocardiogram about 3 to 4 months ago, prior to his recent lumbar spine surgery - repeat per cardiology Gave 2.5 mg IV lopressor this morning and then home po dosing - converted this afternoon Consult his analysis engineer Dr. Medel. (2) CAD (coronary artery disease): See above (3) Hypertension: See above (4) Type 2 diabetes mellitus: Hold metformin. Continue Accu-Cheks before meals and at bedtime with NovoLog coverage per scale. (5) Rheumatoid arthritis: On methotrexate 15 mg p.o. weekly, which will be held. Continue folic acid 1 mg p.o. daily except methotrexate day. He typically takes prednisone 5 mg p.o. every morning. Will briefly increase his dosing to 10 mg to partially address adrenal insufficiency, and plan to discharge on his usual 5 mg dosing. (6) GERD (gastroesophageal reflux disease): Continue pantoprazole 40 mg daily (7) Lumbar stenosis with neurogenic claudication: Patient is status post surgery approximately 2 half weeks ago at [facility]. He is walking almost back to his usual pace. He had been taking pain medications regularly, but only as needed at this point. Patient reports he was discharged from PT - encouraged to walk halls with his walker (8) Benign prostatic hyperplasia with urinary obstruction: He is not on any specific treatment at this time, and denies symptoms. Subjective Mr. Harvey has had no further palpitations today. He denies chest pain, pressure or sob. ROS Constitutional: no chills, aches, sweats or fever Respiratory: no sob,cough, sputum, or wheezing Cardiac: see HPI GI: no abdominal pain, nausea, vomiting, diarrhea or constipation : no dysuria or hesitancy Extremities: no joint pain or weakness Skin: no rash All other systems reviewed and negative Physical Exam Physical Exam: General: no distress Eyes: normal inspection, PERLL Respiratory: chest non tender, clear to auscultation, normal breath sounds, no respiratory distress, no accessory muscle use Cardiac: regular rate and rhythm, no rub or gallop, no murmur, no edema, no jvd GI/: active bowel sounds, no abd pain or tenderness, soft, non distended Extremities: normal range of motion, normal strength, non tender Neuro/Psych: alert and oriented x 3, normal mood and affect Skin: normal color, dry Results & Data ([facility]) Vital Signs (Past 12 Hours) Vital Signs Temp Pulse Pulse Resp BP BP BP 09/22/19 15:26 36.7 C 81 18 137/61 09/22/19 14:51 65 09/22/19 10:59 36.5 C 99 H 16 102/62 09/22/19 10:27 118 H 112/58 L 09/22/19 09:21 132 H 09/22/19 08:06 145 H 96/64 L 09/22/19 06:47 36.7 C 112 H 18 97/59 L Pulse Ox 09/22/19 15:26 94 09/22/19 14:51 09/22/19 10:59 97 09/22/19 10:27 09/22/19 09:21 09/22/19 08:06 09/22/19 06:47 95 PG Care Time/CCT Total # of Minutes Spent Total Time Spent with Patient: Total time spent is greater than 50% in coordination of care (as documented) at patient's floor/unit and/or counseling patient: Coding Level of Care Code 36813 Subseq Hosp Care Lvl 3 Diagnoses Atrial fibrillation with RVR I48.91 CAD (coronary artery disease) I25.10 Hypertension I10 Type 2 diabetes mellitus E11.9 Rheumatoid arthritis M06.9 GERD (gastroesophageal reflux disease) K21.9 Lumbar stenosis with neurogenic claudication M48.062 Benign prostatic hyperplasia with urinary obstruction N40.1; N13.8
[2019-09-22] MEDS ORDERED: PANTOprazole 40 MG TAB PO SCH (21:00)
[2019-09-22] MEDS ORDERED: FOLIC ACID 1 MG TAB PO SCH (21:00)
[2019-09-22] MEDS ORDERED: ASPIRIN 81 MG ECTAB PO SCH (21:00)
[2019-09-22] MEDS ORDERED: NON-FORMULARY MEDICATION (Coenzyme Q10 [Coq-10] 100 MG) PO SCH (21:00)
[2019-09-22] MEDS ORDERED: ROSUVASTATIN CALCIUM 10 MG TAB PO SCH (21:00)
[2019-09-23] MEDS: HYDROCODONE/ACETAMOPHEN 5/325MG TAB PO PRN ×4 (01:39→11:43)
[2019-09-23 07:12] LABS: INR 1.1 (0.9-1.1); Prothrombin Time 11.6 Seconds (9.0-12.0)
[2019-09-23 07:38] LABS: BUN Creatinine Ratio 13.9 (10-20); Calcium 8.8 mg/dl (8.5-10.1); Creatinine Clr Calc Pharmacy 46.6 ml/min; Est GFR (African American) 66.2; Est GFR (Non-African American) 57.1; Phosphorus 2.8 mg/dl (2.5-4.9); Potassium 4.3 mmol/L (3.5-5.1)
[2019-09-23] MEDS: METOPROLOL TARTRATE 50 MG TAB PO SCH (07:56)
[2019-09-23] MEDS: APIXABAN 5 MG TABLET PO SCH (07:56)
[2019-09-23] MEDS: VITAMIN B COMPLEX TAB PO SCH (07:56)
[2019-09-23] MEDS: CHOLECALCIFEROL 1,000 UNITS 25 MCG TAB PO SCH (07:56)
[2019-09-23] MEDS: OLMESARTAN MEDOXOMIL 40 MG TAB PO SCH (07:56)
[2019-09-23] MEDS: predniSONE 10 MG TABLET PO SCH (07:57)
[2019-09-23] MEDS: INSULIN ASPART 100 UNITS/ML 3 ML PEN SC SCH ×2 (08:02→11:52)
[2019-09-23 08:41] LABS: Basophils # (auto) 0.14 K/uL (0-0.2); Basophils % (auto) 1.9 %; Eosinophils # (auto) 0.73 K/uL (0-0.5); Eosinophils % (auto) 10.1 %; Hematocrit (blood only) 31.4 % (42-52); Hemoglobin 9.7 g/dL (14.0-18.0); Immature Granulocytes # (auto) 0.04 K/uL (0.00-0.02); Immature Granulocytes % (auto) 0.6 %; Lymphocytes # (auto) 1.13 K/uL (1.2-3.4); Lymphocytes % (auto) 15.6 %; Mean Corpuscular Hemoglobin 29.1 pg (25-34); Mean Corpuscular Hgb Conc 30.9 g/dL (32-36); Mean Corpuscular Volume 94.3 fL (80-100); Mean Platelet Volume 8.2 fL (7.4-10.4); Monocytes # (auto) 0.52 K/uL (0.11-0.59); Monocytes % (auto) 7.2 %; Neutrophils # (auto) 4.69 K/uL (1.4-6.5); Neutrophils % (auto) 64.6 %; Platelet Count 450 K/uL (130-400); RDW Coefficient of Variation 16.3 % (11.5-14.5); RDW Standard Deviation 55.3 fL (36.4-46.3); Red Blood Count 3.33 M/uL (4.7-6.1); White Blood Count 7.25 K/uL (4.8-10.8)
--- NOTE | 2019-09-23 12:09 | Discharge Summary ---
Date of Service September 23, 2019 Admission HPI Per Admitting Provider The patient is an 84-year-old male with a past medical history including atrial fibrillation, BPH with OBS/LUTS, lumbar spinal stenosis with neurogenic claudication, history of CABG, CAD, diabetes mellitus type 2, hypertension and rheumatoid arthritis. He presents to the emergency department with an episode of symptomatic palpitations, where he was aware of his heart beating fast and irregularly, and felt lightheaded and dizzy. He reports when he checked his blood pressure at home his heart rate was around 145. He has similar episode in 2018, where he was in the hospital for 2 days. He follows with Dr. Medel from cardiology. He takes his Eliquis twice daily as directed. Principal Diagnosis Afib RVR Discharge Exam Constitutional WD/WN, vitals as above Respiratory normal respiratory effort, lungs clear to auscultation Gastrointestinal (Abdomen) Inspection/Auscultation: abdomen normal to inspection and normal bowel sounds; abdomen not distended Percussion/Palpation: abdomen soft; abdomen nontender Musculoskeletal no cyanosis or clubbing, extremities motor strength 5/5 Skin no rashes, warm and dry Neurologic moves all extremities and awake Psychiatric A+Ox3, euthymic affect Discharge Data Allergies Allergy/AdvReac Type Severity Reaction Status Date / Time No Known Allergies Allergy Mild NONE Verified 09/21/19 23:14 Consultations 09/21/19 23:32 ED Decision to Admit Stat 09/22/19 01:39 Consult Cardiology Routine Consult Case Management - Discharge Planning Routine Hospital Course (1) Atrial fibrillation with RVR: A.fib RVR /CAD/hypertension/lower extremity edema- Continue apixaban 5 mg p.o. twice daily, aspirin 81 mg daily, metoprolol tartrate 50 mg p.o. twice daily and telmisartan 40 mg p.o. daily. Resume amlodipine. He reports having had an echocardiogram about 3 to 4 months ago, prior to his recent lumbar spine surgery - repeated per cardiology with WMA Gave 2.5 mg IV lopressor this morning and then home po dosing - converted 2/5 Consulted cardiology (2) Demand ischemia: Demand ischemia in setting of Afib RVR treated with rate control and conversion to SR. Troponin peaked at 0.396 and trended down - no WMA on echo as above Continue ASA, statin, metoprolol Patient did not have any anginal symptoms (3) CAD (coronary artery disease): See above (4) Hypertension: See above (5) Type 2 diabetes mellitus: Resume metformin for home Accu-Cheks before meals and at bedtime with NovoLog coverage per scale inpatient A1c 7.4 (6) Rheumatoid arthritis: On methotrexate 15 mg p.o. weekly, which will be held. Continue folic acid 1 mg p.o. daily except methotrexate day. He typically takes prednisone 5 mg p.o. every morning. Will briefly increase his dosing to 10 mg to partially address adrenal insufficiency, and plan to discharge on his usual 5 mg dosing. (7) GERD (gastroesophageal reflux disease): Continue pantoprazole 40 mg daily (8) Lumbar stenosis with neurogenic claudication: Patient is status post surgery approximately 2 half weeks ago at [facility]. He is walking almost back to his usual pace. He had been taking pain medications regularly, but only as needed at this point. Patient reports he was discharged from PT - tolerating walking the halls with walker (9) Benign prostatic hyperplasia with urinary obstruction: He is not on any specific treatment at this time, and denies symptoms. Total Time Total Time Spent Total Time Spent (In Minutes): greater than 30 minutes Discharge Plan Discharge Items Patient Disposition: Home - Self-Care Reason For Visit: ATRIAL FIB WITH RVR Discharge Diagnosis: Atrial fibrillation with rapid ventricular response Activity: Resume your previous activity Non-emergency contact: Primary Care Provider Call non-emergency contact if: you have any medication questions Follow-up/Referrals: Carlos Kraft DO [Primary Care Provider] - 09/29/19 12:50 pm (within one week --Appointment with Dr. Palencia) Diet: Carb Consistent or DM2 and Heart Healthy Addtl Attending Provider Instructions: (1) Atrial fibrillation with RVR: Continue apixaban 5 mg p.o. twice daily, aspirin 81 mg daily, metoprolol tartrate 50 mg p.o. twice daily, amlodipine, and telmisartan 40 mg p.o. daily. You were seen by Dr. Dumont from cardiology as well. (2) Demand ischemia Because of the stress of your rapid heart rate, your troponin levels in your blood elevated. This is an indicator of your heart was not getting adequate oxygen at that time. The troponin is now trending down and you did not have any symptoms of heart attack such as chest pain or pressure. Your EKG is now showing a normal sinus rhythm. You are on appropriate medications for this event: aspirin, statin, and metoprolol. (2) Rheumatoid arthritis: Continue methotrexate 15 mg p.o. weekly Continue folic acid 1 mg p.o. daily except methotrexate day. Resume your prednisone 5 mg p.o. every morning. Your prednisone was increased to 10 mg daily while you were in the hospital to stress dose. (3) Lumbar stenosis with neurogenic claudication: Post surgery approximately 2 half weeks ago at [facility]. Please follow with your orthopedist per their instructions Pending Studies at Discharge: No Stand-Alone Forms: [facility], Smoking Cessation Medications and DC Order Prescriptions: Continued apixaban [Eliquis] 5 mg tablet 5 mg PO BID RF: 0 prednisone 5 mg Tablet 5 mg PO QAM RF: 0 amlodipine [Norvasc] 2.5 mg Tablet 2.5 mg PO QAM RF: 0 aspirin 81 mg Tablet,Delayed Release (Dr/Ec) 81 mg PO HS RF: 0 methotrexate sodium 2.5 mg Tablet 15 mg PO WK RF: 0 pantoprazole [Protonix] 40 mg Tablet,Delayed Release (Dr/Ec) 40 mg PO QPM RF: 0 folic acid 1 mg Tablet 1 mg PO QPM RF: 0 B-complex with vitamin C [Super B Complex-Vitamin C] Tablet 1 tab PO QAM RF: 0 olmesartan 40 mg tablet 40 mg PO QAM RF: 0 coenzyme Q10 [CoQ-10] 100 mg Capsule 100 mg PO QPM RF: 0 rosuvastatin [Crestor] 10 mg Tablet 10 mg PO QPM RF: 0 cholecalciferol (vitamin D3) [Vitamin D3] 1,000 unit Tablet 1,000 unit PO QAM RF: 0 metoprolol tartrate [Lopressor] 50 mg tablet 50 mg PO BID RF: 0 hydrocodone-acetaminophen 5-325 mg tablet 1 tab PO Q4 PRN (Reason: Pain) RF: 0 metformin 500 mg tablet extended release 24 hr 500 mg PO QPM RF: 0 diphenhydramine HCl [Allergy] 25 mg Tablet 25 mg PO HS RF: 0 omega 5-qtk-vag-fish oil [Fish Oil] 1,000 mg (120 mg-180 mg) Capsule 1 cap PO HS RF: 0 Discharge Orders: Discharge Order (Routine); Ordered 09/23/19 Ordered By: Jessi Voss/Other Patient Handouts: Hyperglycemia, Diabetes Type 2 Coping Admission Data Admit Date/Time: 09/22/19 00:51 Attending Provider: Francisco Mccray. Admit Provider: Eitan Mckeon Primary Care Provider: Carlos Kraft Other Providers: Wai Medel ; Francisco Mccray. Other Interventions: Discharge Summary Assessment (RN) Last Done: 09/23/19 13:45 DC Date/Time DO NOT enter until pt leaves facility: 09/23/19 14:19 Supervising Physician Co-Signing Physician Notes I supervised Jessi Leach NP on this patient's care. I examined the patient today independently of her. I discussed the plan of care with her with the plan being as written in her note except for any following changes/exceptions: None. Feeling well today. Back in sinus. Unfortunately, not a clear cause for this afib with RVR, but will return to Dr. Medel's care as outpatient. Coding Level of Care Code D/C Day Management >30 mins Diagnoses Atrial fibrillation with RVR I48.91 Demand ischemia I24.8 CAD (coronary artery disease) I25.10 Hypertension I10 Type 2 diabetes mellitus E11.9 Rheumatoid arthritis M06.9 GERD (gastroesophageal reflux disease) K21.9 Lumbar stenosis with neurogenic claudication M48.062 Benign prostatic hyperplasia with urinary obstruction N40.1; N13.8
--- NOTE | 2019-09-23 14:13 | Electrocardiogram Report ---
Test Reason : Blood Pressure : / mmHG Vent. Rate : 071 BPM Atrial Rate : 071 BPM P-R Int : 168 ms QRS Dur : 098 ms QT Int : 396 ms P-R-T Axes : 025 -05 -08 degrees QTc Int : 430 ms Normal sinus rhythm Normal ECG When compared with ECG of 21-SEP-2019 22:36, Sinus rhythm has replaced Atrial fibrillation Vent. rate has decreased BY 49 BPM Confirmed by Gaurav Matthew ([id number]) on 09/23/2019 2:12:48 PM Referred By: REFERRED SELF Confirmed By:Gaurav Matthew
--- NOTE | 2019-09-24 16:04 | XCELERA ---
[id number] \\[id number]
== END 2019-09-23 14:19 | disposition home health service (06) ==
LOC: ED 22:31 → SUATTDRO 09-22 00:51 → INTOOBSV 09-22 00:51 → 2S 09-22 00:51

== ENCOUNTER 2021-01-13 12:13 | Observation (INO) ==
[2021-01-13] MEDS ORDERED: SODIUM CHLORIDE 0.9% 250 ML IV ONE (12:46)
[2021-01-13] MEDS ORDERED: NovoLIN-R INSULIN PER UNIT CHARGE IV STA (12:46)
--- NOTE | 2021-01-13 12:52 | Emergency Department Note ---
History of Present Illness General Chief complaint: Hyperglycemia Stated complaint: HIGH BLOOD SUGAR LEVELS Time Seen by Provider: 01/13/21 12:28 Source: patient and family (With daughter who is at the bedside) Mode of arrival: ambulatory Limitations: no limitations History of Present Illness This patient is an 85-year-old male who comes in after feeling weak and tired and achy. This is been going on for several weeks in fact he was seen here on December 26. At that time , he had shortness of breath and had a negative work-up including ultrasound of his leg which was negative for DVT. Started on steroids 8 days ago and his sugars have been particularly high they went up to 480 on . Looking back through his chart when he was here on the that it was in the high 300s. He says his vision is been slightly blurry feels a little lightheaded he feels generally weak is nonfocal he is having trouble walking just being weak he says he feels miserable. He has a mild headache. No history of cancer but he does have a history of a CABG. No chest pain. No blood or melena stool. He does take methotrexate for rheumatoid arthritis and a small dose of prednisone typically. No difficulty speaking or swallowing. He is had the Covid vaccine with the second dose on November 02. He is on chronic anticoagulation with Eliquis due to chronic A. fib Home Medications Medication Instructions Recorded Confirmed Type B-complex with vitamin C [Super B 1 tab PO QAM 08/07/18 01/13/21 History Complex-Vitamin C] amlodipine [Norvasc] 5 mg PO QAM 08/07/18 01/13/21 History aspirin 81 mg PO HS 08/07/18 01/13/21 History cholecalciferol (vitamin D3) 1,000 unit PO QAM 08/07/18 01/13/21 History [Vitamin D3] coenzyme Q10 [CoQ-10] 100 mg PO QPM 08/07/18 01/13/21 History folic acid 1 mg PO QPM 08/07/18 01/13/21 History methotrexate sodium 15 mg PO WK 08/07/18 01/13/21 History olmesartan 20 mg PO QAM 08/07/18 01/13/21 History prednisone 5 mg PO QAM 08/07/18 01/13/21 History rosuvastatin [Crestor] 10 mg PO QPM 08/07/18 01/13/21 History apixaban 5 mg tablet 5 mg PO BID tab 09/04/18 01/13/21 History metoprolol tartrate 50 mg tablet 50 mg PO BID tab 09/04/18 01/13/21 History glipizide 5 mg tablet 2.5 mg PO QAM 06/14/20 01/13/21 History PreserVision AREDS-2 1 tab PO BID 10/24/20 01/13/21 History furosemide [Lasix] 20 mg PO QAM 10/24/20 01/13/21 History pantoprazole [Protonix] 40 mg PO QPM 10/24/20 01/13/21 History ferrous sulfate 143 mg PO DAILY 01/13/21 01/13/21 History Allergies Allergy/AdvReac Type Severity Reaction Status Date / Time No Known Allergies Allergy Mild NONE Verified 01/13/21 14:15 Past Med/Surg History Medical History A-fib PAROXYSMAL; ON APIXABAN DX JUN 04 2020 NO HX CARDIOVERSION Benign prostatic hyperplasia with urinary obstruction HX CAD (coronary artery disease) S/P CABG X 3 (2006) Chronic back pain GERD (gastroesophageal reflux disease) Hyperlipidemia Hypertension Myocardial Infarction S/P CABG X 3 (2006) Myofascial pain Rheumatoid arthritis Sleep apnea DEVICE RECOMMENED - PT COULDN'T TOLERATE , DOES NOT USE Type 2 diabetes mellitus NIDDM Surgical History H/O repair of left rotator cuff X 2 H/O repair of right rotator cuff History of cardiac cath 2006 ...ND...[facility], NO STENT(S) ...CABG History of cataract extraction BILAT History of cholecystectomy History of colonoscopy History of esophagogastroduodenoscopy (EGD) History of tooth extraction Hx of CABG S/P CABG X 3 (2006) S/P left knee arthroscopy HX Status post lumbar spinal fusion L2-5 posterior decompression and fusion August 2019 Dr. 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 Beliefs That Will Affect Care: None marital status: Current Living Situation: Spouse current occupational status: retired Feels Safe at Home: Yes Assistive Devices: Denture - Upper and Glasses Review of Systems A total of 10 systems reviewed and were otherwise negative Physical Exam Vital Signs Vital Signs - 24 hr 01/13/21 12:15 01/13/21 13:00 01/13/21 13:10 Temperature 36.4 C L Temperature Source Temporal Artery Scan Pulse Rate 82 72 73 Pulse Rate [Apical] Pulse Rate from SpO2 Sensor Pulse Rhythm Regular Pulse Strength Normal Respiratory Rate 18 31 H 25 H Respiratory Effort / Characteristics Non-Labored Spontaneous Respiratory Depth Normal Respiratory Pattern Regular Blood Pressure 125/76 Blood Pressure [Left Arm] Blood Pressure Mean 92 Blood Pressure Mean [Left Arm] Blood Pressure Position Sitting Pulse Oximetry 95 Oxygen Delivery Method Room Air Sepsis Recent Fever Within 48 Hours No Sepsis New/Unexplained Change in Mental Status N/A Sepsis Action Taken by Nursing No Action Required 01/13/21 13:20 01/13/21 13:30 01/13/21 14:06 Temperature Temperature Source Pulse Rate 77 74 79 Pulse Rate [Apical] 75 Pulse Rate from SpO2 Sensor 75 Pulse Rhythm Pulse Strength Respiratory Rate 22 31 H 24 Respiratory Effort / Characteristics Respiratory Depth Respiratory Pattern Blood Pressure 113/63 Blood Pressure [Left Arm] 113/63 Blood Pressure Mean 79 Blood Pressure Mean [Left Arm] 79 Blood Pressure Position Pulse Oximetry 95 Oxygen Delivery Method Room Air Oxymask Sepsis Recent Fever Within 48 Hours Sepsis New/Unexplained Change in Mental Status Sepsis Action Taken by Nursing 01/13/21 14:10 01/13/21 14:20 01/13/21 14:30 Temperature Temperature Source Pulse Rate 78 73 72 Pulse Rate [Apical] Pulse Rate from SpO2 Sensor Pulse Rhythm Pulse Strength Respiratory Rate 26 H 26 H 23 Respiratory Effort / Characteristics Respiratory Depth Respiratory Pattern Blood Pressure Blood Pressure [Left Arm] Blood Pressure Mean Blood Pressure Mean [Left Arm] Blood Pressure Position Pulse Oximetry Oxygen Delivery Method Sepsis Recent Fever Within 48 Hours Sepsis New/Unexplained Change in Mental Status Sepsis Action Taken by Nursing 01/13/21 14:40 01/13/21 14:50 01/13/21 15:00 Temperature Temperature Source Pulse Rate 75 69 70 Pulse Rate [Apical] Pulse Rate from SpO2 Sensor Pulse Rhythm Pulse Strength Respiratory Rate 22 26 H 20 Respiratory Effort / Characteristics Respiratory Depth Respiratory Pattern Blood Pressure Blood Pressure [Left Arm] Blood Pressure Mean Blood Pressure Mean [Left Arm] Blood Pressure Position Pulse Oximetry Oxygen Delivery Method Sepsis Recent Fever Within 48 Hours Sepsis New/Unexplained Change in Mental Status Sepsis Action Taken by Nursing 01/13/21 15:10 01/13/21 15:20 01/13/21 15:30 Temperature Temperature Source Pulse Rate 72 67 67 Pulse Rate [Apical] Pulse Rate from SpO2 Sensor Pulse Rhythm Pulse Strength Respiratory Rate 22 23 25 H Respiratory Effort / Characteristics Respiratory Depth Respiratory Pattern Blood Pressure Blood Pressure [Left Arm] Blood Pressure Mean Blood Pressure Mean [Left Arm] Blood Pressure Position Pulse Oximetry Oxygen Delivery Method Sepsis Recent Fever Within 48 Hours Sepsis New/Unexplained Change in Mental Status Sepsis Action Taken by Nursing 01/13/21 15:40 01/13/21 15:50 01/13/21 16:00 Temperature Temperature Source Pulse Rate 66 66 67 Pulse Rate [Apical] Pulse Rate from SpO2 Sensor Pulse Rhythm Pulse Strength Respiratory Rate Respiratory Effort / Characteristics Respiratory Depth Respiratory Pattern Blood Pressure Blood Pressure [Left Arm] Blood Pressure Mean Blood Pressure Mean [Left Arm] Blood Pressure Position Pulse Oximetry Oxygen Delivery Method Sepsis Recent Fever Within 48 Hours Sepsis New/Unexplained Change in Mental Status Sepsis Action Taken by Nursing 01/13/21 16:10 01/13/21 16:20 01/13/21 16:30 Temperature Temperature Source Pulse Rate 64 70 67 Pulse Rate [Apical] Pulse Rate from SpO2 Sensor Pulse Rhythm Pulse Strength Respiratory Rate Respiratory Effort / Characteristics Respiratory Depth Respiratory Pattern Blood Pressure Blood Pressure [Left Arm] Blood Pressure Mean Blood Pressure Mean [Left Arm] Blood Pressure Position Pulse Oximetry Oxygen Delivery Method Sepsis Recent Fever Within 48 Hours Sepsis New/Unexplained Change in Mental Status Sepsis Action Taken by Nursing 01/13/21 16:40 01/13/21 16:50 01/13/21 16:59 Temperature Temperature Source Pulse Rate 71 72 75 Pulse Rate [Apical] Pulse Rate from SpO2 Sensor 74 Pulse Rhythm Pulse Strength Respiratory Rate Respiratory Effort / Characteristics Respiratory Depth Respiratory Pattern Blood Pressure 130/71 Blood Pressure [Left Arm] Blood Pressure Mean 90 Blood Pressure Mean [Left Arm] Blood Pressure Position Pulse Oximetry 95 Oxygen Delivery Method Sepsis Recent Fever Within 48 Hours Sepsis New/Unexplained Change in Mental Status Sepsis Action Taken by Nursing 01/13/21 17:00 01/13/21 17:01 Temperature Temperature Source Pulse Rate 70 72 Pulse Rate [Apical] Pulse Rate from SpO2 Sensor 70 71 Pulse Rhythm Pulse Strength Respiratory Rate Respiratory Effort / Characteristics Respiratory Depth Respiratory Pattern Blood Pressure 135/69 Blood Pressure [Left Arm] Blood Pressure Mean 91 Blood Pressure Mean [Left Arm] Blood Pressure Position Pulse Oximetry 95 95 Oxygen Delivery Method Sepsis Recent Fever Within 48 Hours Sepsis New/Unexplained Change in Mental Status Sepsis Action Taken by Nursing General: Well developed well nourished older male who appears alert and orient x3 and in no acute distress, breathing comfortably on room air. Normal speech HEENT: Normal cephalic atraumatic. Pupils are equal round and reactive to light. Extraocular movements are intact. Oropharynx is pink with moist mucous membranes. No swelling of the mouth lips or tongue. Neck: Supple with a midline trachea. No meningeal signs or stiffness, no JVD or bruits. No Stridor. Chest: Clear to auscultation bilaterally. No wheezes or rhonchi. No increased work of breathing. Heart: Regular rate and rhythm without murmurs or gallops. Abdomen: Soft nontender, nondistended without rebound guarding or rigidity. Extremities: No cyanosis clubbing or edema. No calf tenderness or assymetry Spine/Back. Non tender to palpation. No CVA tenderness Skin: Good turgor without rashes. Neurologic exam: Cranial nerves two through 12 are intact. Motor and sensation are intact and symmetrical throughout with exception of some mild weakness when he is dorsiflexing his right foot compared to the left Course Administered Medications Discontinued Medications Sodium Chloride (Nss) 250 mls @ 999 mls/hr IV .Q16M ONE Stop: 01/13/21 13:01 Last Infusion: 01/13/21 14:46 Dose: 0 mls/hr Documented by: [id number] Admin: 01/13/21 13:28 Dose: 999 mls/hr Documented by: [id number] Insulin Human Regular (Novolin-R Insulin Per Unit Charge) 5 units IV NOW STA Stop: 01/13/21 12:47 Last Admin: 01/13/21 13:27 Dose: 5 units Documented by: [id number] Cosigned by: [id number] Medical Decision Making Differential Diagnosis Hyperglycemia, infection, dehydration, intracranial process, intra-abdominal process, anemia, CVA, trauma, toxicologic, thyroid disease, metabolic or electrolyte, Covid Medical Records Attestation: I reviewed the patient's medical records. Home Medications Current Medication List: was personally reviewed by me Laboratory Data Attestation: I reviewed the patient's lab results. Result diagrams: 01/13/21 13:02 01/13/21 13:02 Lab Results 01/13/21 01/13/21 01/13/21 Range/Units 12:17 13:02 13:02 WBC (4.8-10.8) K/uL RBC (4.7-6.1) M/uL Hgb (14.0-18.0) g/dL Hct (42-52) % MCV (80-100) fL MCH (25-34) pg MCHC (32-36) g/dL RDW Std Deviation (36.4-46.3) fL RDW Coeff of Ari (11.5-14.5) % Plt Count (130-400) K/uL MPV (7.4-10.4) fL Immature Gran % (Auto) % Neut % (Auto) % Lymph % (Auto) % [place] % (Auto) % Eos % (Auto) % Baso % (Auto) % Neut # (Auto) (1.4-6.5) K/uL Lymph # (Auto) (1.2-3.4) K/uL [place] # (Auto) (0.11-0.59) K/uL Eos # (Auto) (0-0.5) K/uL Baso # (Auto) (0-0.2) K/uL Immature Gran # (Auto) (0.00-0.02) K/uL RBC Morphology PT 10.8 (9.0-12.0) Seconds INR 1.1 (0.9-1.1) Sodium 131 L (136-145) mmol/L Potassium 4.5 (3.5-5.1) mmol/L Chloride 95 L (98-107) mmol/L Carbon Dioxide 32 (21-32) mmol/L Anion Gap 4.0 (3-11) BUN 29 H (7-18) mg/dl Creatinine 1.31 (0.6-1.4) mg/dl Est Cr Clr Drug Dosing Not Reportable Est GFR ( Amer) 56.7 ml/min Est GFR (Non-Af Amer) 49.0 ml/min BUN/Creatinine Ratio 21.8 H (10-20) Glucose 469 H* (70-99) mg/dl POC Glucose 493 H* (70-99) mg/dl Lactate (0.4-2.0) mmol/L Calcium 9.1 (8.5-10.1) mg/dl Magnesium 2.5 H (1.8-2.4) mg/dl Total Bilirubin 0.4 (0.2-1) mg/dl AST 14 L (15-37) U/L ALT 29 (12-78) U/L Alkaline Phosphatase 152 H (45-117) U/L Total Creatine Kinase 48 (39-308) U/L Troponin I < 0.015 (0-0.045) ng/ml Total Protein 6.9 (6.4-8.2) gm/dl Albumin 2.7 L (3.4-5.0) gm/dl Globulin 4.2 H (2.5-4.0) gm/dl Albumin/Globulin Ratio 0.6 L (0.9-2) Beta-Hydroxybutyric Acd 1.81 (0.2-2.81) mg/dl TSH 1.670 (0.300-4.500) uIu/ml Anaplasma Smear Lyme Disease IgG Ab (Negative) Lyme Disease IgM Ab (Negative) COVID-19 Eval Order SARS-CoV-2 (PCR) (Negative) 01/13/21 01/13/21 01/13/21 Range/Units 13:02 13:02 13:02 WBC 13.31 H (4.8-10.8) K/uL RBC 3.92 L (4.7-6.1) M/uL Hgb 12.2 L (14.0-18.0) g/dL Hct 37.7 L (42-52) % MCV 96.2 (80-100) fL MCH 31.1 (25-34) pg MCHC 32.4 (32-36) g/dL RDW Std Deviation 55.3 H (36.4-46.3) fL RDW Coeff of Ari 16.2 H (11.5-14.5) % Plt Count 318 (130-400) K/uL MPV 9.6 (7.4-10.4) fL Immature Gran % (Auto) 5.5 % Neut % (Auto) 87.0 % Lymph % (Auto) 3.8 % [place] % (Auto) 2.6 % Eos % (Auto) 0.9 % Baso % (Auto) 0.2 % Neut # (Auto) 11.58 H (1.4-6.5) K/uL Lymph # (Auto) 0.51 L (1.2-3.4) K/uL [place] # (Auto) 0.34 (0.11-0.59) K/uL Eos # (Auto) 0.12 (0-0.5) K/uL Baso # (Auto) 0.03 (0-0.2) K/uL Immature Gran # (Auto) 0.73 H (0.00-0.02) K/uL RBC Morphology Unremarkable PT (9.0-12.0) Seconds INR (0.9-1.1) Sodium (136-145) mmol/L Potassium (3.5-5.1) mmol/L Chloride (98-107) mmol/L Carbon Dioxide (21-32) mmol/L Anion Gap (3-11) BUN (7-18) mg/dl Creatinine (0.6-1.4) mg/dl Est Cr Clr Drug Dosing Est GFR ( Amer) ml/min Est GFR (Non-Af Amer) ml/min BUN/Creatinine Ratio (10-20) Glucose (70-99) mg/dl POC Glucose (70-99) mg/dl Lactate 1.8 (0.4-2.0) mmol/L Calcium (8.5-10.1) mg/dl Magnesium (1.8-2.4) mg/dl Total Bilirubin (0.2-1) mg/dl AST (15-37) U/L ALT (12-78) U/L Alkaline Phosphatase (45-117) U/L Total Creatine Kinase (39-308) U/L Troponin I (0-0.045) ng/ml Total Protein (6.4-8.2) gm/dl Albumin (3.4-5.0) gm/dl Globulin (2.5-4.0) gm/dl Albumin/Globulin Ratio (0.9-2) Beta-Hydroxybutyric Acd (0.2-2.81) mg/dl TSH (0.300-4.500) uIu/ml Anaplasma Smear See Comment Lyme Disease IgG Ab Negative (Negative) Lyme Disease IgM Ab Negative (Negative) COVID-19 Eval Order SARS-CoV-2 (PCR) (Negative) 01/13/21 01/13/21 01/13/21 Range/Units 13:02 13:02 14:42 WBC (4.8-10.8) K/uL RBC (4.7-6.1) M/uL Hgb (14.0-18.0) g/dL Hct (42-52) % MCV (80-100) fL MCH (25-34) pg MCHC (32-36) g/dL RDW Std Deviation (36.4-46.3) fL RDW Coeff of Ari (11.5-14.5) % Plt Count (130-400) K/uL MPV (7.4-10.4) fL Immature Gran % (Auto) % Neut % (Auto) % Lymph % (Auto) % [place] % (Auto) % Eos % (Auto) % Baso % (Auto) % Neut # (Auto) (1.4-6.5) K/uL Lymph # (Auto) (1.2-3.4) K/uL [place] # (Auto) (0.11-0.59) K/uL Eos # (Auto) (0-0.5) K/uL Baso # (Auto) (0-0.2) K/uL Immature Gran # (Auto) (0.00-0.02) K/uL RBC Morphology PT (9.0-12.0) Seconds INR (0.9-1.1) Sodium (136-145) mmol/L Potassium (3.5-5.1) mmol/L Chloride (98-107) mmol/L Carbon Dioxide (21-32) mmol/L Anion Gap (3-11) BUN (7-18) mg/dl Creatinine (0.6-1.4) mg/dl Est Cr Clr Drug Dosing Est GFR ( Amer) ml/min Est GFR (Non-Af Amer) ml/min BUN/Creatinine Ratio (10-20) Glucose (70-99) mg/dl POC Glucose 364 H* (70-99) mg/dl Lactate (0.4-2.0) mmol/L Calcium (8.5-10.1) mg/dl Magnesium (1.8-2.4) mg/dl Total Bilirubin (0.2-1) mg/dl AST (15-37) U/L ALT (12-78) U/L Alkaline Phosphatase (45-117) U/L Total Creatine Kinase (39-308) U/L Troponin I (0-0.045) ng/ml Total Protein (6.4-8.2) gm/dl Albumin (3.4-5.0) gm/dl Globulin (2.5-4.0) gm/dl Albumin/Globulin Ratio (0.9-2) Beta-Hydroxybutyric Acd (0.2-2.81) mg/dl TSH (0.300-4.500) uIu/ml Anaplasma Smear Lyme Disease IgG Ab (Negative) Lyme Disease IgM Ab (Negative) COVID-19 Eval Order Covid19 at [facility] SARS-CoV-2 (PCR) NEGATIVE (Negative) Imaging Data Attestation: I personally reviewed and interpreted this imaging study as follows: My Impression: Chest x-rayno acute infiltrate, failure, pneumothorax seen Radiologist's Impression: Abdomen/Pelvis CT 01/13/21 12:42 CT OF THE ABDOMEN AND PELVIS WITHOUT CONTRAST CLINICAL HISTORY: weakness, abdominal pain COMPARISON STUDY: CT of the abdomen and pelvis May 04, 2018. Renal ultrasound July 29, 2018. TECHNIQUE: Axial images of the abdomen and pelvis were obtained without IV contrast. Images were reviewed in the axial, sagittal, and coronal planes. Automated exposure control was utilized for the study. A dose lowering tech nique was utilized adhering to the principles of ALARA. FINDINGS: No pneumatosis, free air or portal venous gas is present. No renal, ureteral or bladder calculi are present. There is no hydronephrosis or hydroureter. A water attenuation lesion within the upper pole the left kidney was shown to reflect a cyst on prior contrast enhanced exam. Evaluation of the remainder of the abdomen and pelvis is suboptimal on this unenhanced exam. The liver, spleen, adrenal glands and pancreas are unremarkable. There is no biliary ductal dilatation status post cholecystectomy. There is no peripancreatic infiltration. The prostate is moderately enlarged. There is no evidence for a bowel obstruction. There is a moderate amount of stool within the colon and rectum. The appendix is unremarkable. There is no lymphadenopathy. Postoperative findings within lumbar spine are noted. CT of the lumbar spine will be reported separately. Infrarenal abdominal aorta is ectatic. IMPRESSION: 1. No urinary calculi or hydronephrosis. Moderately enlarged prostate. 2. No acute process within the abdomen or pelvis on unenhanced exam. 3. Moderate amount stool within the colon and rectum. ACT 112: Negative or not required by law. Electronically signed by: Kyler Marquez M.D. 01/13/2021 2:55 PM Chest X-Ray 01/13/21 12:42 XR chest 1V portable CLINICAL HISTORY: weakness COMPARISON STUDY: Chest radiograph December 26, 2020. FINDINGS: There are median sternotomy wires and mediastinal surgical clips. Lung volumes are mildly diminished. Cardiomediastinal silhouette is stable. Mild left basilar opacities are present. There is no evidence for pulmonary edema. IMPRESSION: Mild left basilar opacity which favors atelectasis or scarring. ACT 112: Negative or not required by law. Electronically signed by: Kyler Marquez M.D. 01/13/2021 1:[address] 01/13/21 12:42 CT OF THE HEAD WITHOUT CONTRAST CLINICAL HISTORY: weakness COMPARISON STUDY: No previous studies for comparison. TECHNIQUE: Helical axial images of the head were obtained without IV contrast. Automated exposure control was utilized for the study. A dose lowering technique was utilized adhering to the principles of ALARA. FINDINGS: No acute intracranial hemorrhage, midline shift or mass effect is present. The ventricular system is unremarkable. White matter hypodensity suggests small vessel disease. The basal cisterns are patent. No extra-axial collections are present. There are no findings to suggest acute dural sinus thrombosis or acute territorial infarct. No significant calvarial abnormalities are present. Visualized portions of the sinuses and mastoid air cells are clear. IMPRESSION: No acute intracranial findings. ACT 112: Negative or not required by law. Electronically signed by: Kyler Marquez M.D. 01/13/2021 2:[address] 01/13/21 12:42 CT lumbar spine wo con CLINICAL HISTORY: weakness in legs, rt ankle COMPARISON STUDY: Lumbar spine MRI April 09, 2019. Lumbar spine radiographs November 10, 2020. TECHNIQUE: Axial images of the lumbar spine were obtained. Sagittal and coronal reconstructions were viewed. Automated exposure control was utilized for the study. A dose lowering technique was utilized adhering to the principles of ALARA. FINDINGS: Please note that the CT of the abdomen and pelvis will be reported separately. For purposes of numbering on this exam, the L5-S1 disc space is assigned to axial image 179 of 211. There is slight retrolisthesis of L2 on L3 and slight anterolisthesis of L3 on L4. There is mild anterolisthesis of L4 and L5 and mild retrolisthesis of L5 on S1. Posterior decompression is noted from L3 through L4. Bilateral pedicle screw fusion from L2 through L5 is noted with lateral bone graft material. The hardware is intact. There is no acute lumbar spine fracture. No suspicious lesions are noted. Severe multilevel disc space narrowing is noted. The central canal and neural foramen are suboptimally assessed by CT. Sacroiliac joints are intact. Bone harvest site within the right iliac bone is noted. IMPRESSION: 1. No acute lumbar spine fracture or subluxation. 2. Status post L3-L4 laminectomy and L2-L5 bilateral pedicle screw fusion. Hardware intact. 3. Severe multilevel disc space narrowing. Suboptimal evaluation of the central canal and neural foramen given CT technique. ACT 112: Negative or not required by law. Electronically signed by: Kyler Marquez M.D. 01/13/2021 3:02 PM ECG Data Attestation: I personally reviewed and interpreted this ECG as follows: Indication: + weakness Rate (beats per minute): 69 Rhythm: + normal sinus ECG Intervals/blocks: + Normal QRS, + Normal QT and + Normal ID ECG ST segments: + Nonspecific ST abnormalities ECG Findings: no PACs and no PVCs Comparison ECG Date: from (12/26/20) Change: no significant change MDM Narrative This patient comes in as described above. He was placed in room C9. He has been having ongoing weakness is generalized is nonfocal his blood sugars have also been running very high. In triage it was almost 500. He only takes oral glipizide. IV asked established was given a fluid bolus as well as regular insulin 5 units IV. Sepsis work-up was done including EKG CAT scan of the head abdomen and back. I do think he seems to have some weakness in the right ankle. Hyperglycemia is certainly causing some of his symptoms but it may not be the only thing going on. In light of that he had extensive work-up. His blood sugar was elevated however he has no acidosis. His kidney function is elevated likely consistent with dehydration. EKG has some nonspecific ST abnormality but no definite ischemic changes he has no chest pain or normal troponin. Besides the hyperglycemia he has no significant lecture light or metabolic abnormalities white count is elevated however he has been on steroids. Chest x-ray was unremarkable does not show congestive heart failure, pneumonia, or pneumothorax. CAT scans were obtained do not show any acute abnormalities in the head, lumbar spine, or abdomen. His blood sugar is coming down in the 300s. He has been very weak and his blood sugar I think is contributing to this there may be also another process going on underneath. He is lost a lot of weight as well. I do think he needs a more extensive work-up for his weakness and more intensive treatment of his hyperglycemia. I have consulted Dr. Martinez to see him in the ER for these measures. He was Covid tested and was negative Continuous cardiac monitoring: Order was placed in EMR for continuous cardiac monitoring. The patient was noted to be in normal sinus rhythm with a pulse of 75. Impression & Plan Weakness, Hyperglycemia, Current use of termite treater helper anticoagulation, Lab test negative for COVID-19 virus Discharge Plan Visit Data Chief Complaint: Hyperglycemia Stated Complaint: HIGH BLOOD SUGAR LEVELS ED Provider: Gagan Hyde Discharge Problem: Weakness, Hyperglycemia, Current use of termite treater helper anticoagulation, Lab test negative for COVID-19 virus Patient Disposition: Admitted As Inpatient Forms Stand Alone Forms: My [facility] Prescriptions Prescriptions: No Action apixaban [Eliquis] 5 mg tablet 5 mg PO BID RF: 0 glipizide 5 mg tablet 2.5 mg PO QAM RF: 0 prednisone 5 mg Tablet 5 mg PO QAM RF: 0 amlodipine [Norvasc] 2.5 mg Tablet 5 mg PO QAM RF: 0 aspirin 81 mg Tablet,Delayed Release (Dr/Ec) 81 mg PO HS RF: 0 methotrexate sodium 2.5 mg Tablet 15 mg PO WK RF: 0 folic acid 1 mg Tablet 1 mg PO QPM RF: 0 B-complex with vitamin C [Super B Complex-Vitamin C] Tablet 1 tab PO QAM RF: 0 olmesartan 40 mg tablet 20 mg PO QAM RF: 0 coenzyme Q10 [CoQ-10] 100 mg Capsule 100 mg PO QPM RF: 0 rosuvastatin [Crestor] 10 mg Tablet 10 mg PO QPM RF: 0 cholecalciferol (vitamin D3) [Vitamin D3] 1,000 unit Tablet 1,000 unit PO QAM RF: 0 metoprolol tartrate [Lopressor] 50 mg tablet 50 mg PO BID RF: 0 pantoprazole [Protonix] 40 mg Tablet,Delayed Release (Dr/Ec) 40 mg PO QPM RF: 0 furosemide [Lasix] 20 mg Tablet 20 mg PO QAM RF: 0 PreserVision AREDS-2 250-90-40-1 mg Capsule 1 tab PO BID RF: 0 ferrous sulfate 143 mg (45 mg iron) Tablet Extended Release 143 mg PO DAILY RF: 0 Referrals Referrals: Carlos Kraft DO [Primary Care Provider] -
[2021-01-13 13:20] LABS: Hematocrit (blood only) 37.7 % (42-52); Hemoglobin 12.2 g/dL (14.0-18.0); Mean Corpuscular Hemoglobin 31.1 pg (25-34); Mean Corpuscular Hgb Conc 32.4 g/dL (32-36); Mean Corpuscular Volume 96.2 fL (80-100); Mean Platelet Volume 9.6 fL (7.4-10.4); Platelet Count 318 K/uL (130-400); RDW Coefficient of Variation 16.2 % (11.5-14.5); RDW Standard Deviation 55.3 fL (36.4-46.3); Red Blood Count 3.92 M/uL (4.7-6.1); White Blood Count 13.31 K/uL (4.8-10.8)
--- NOTE | 2021-01-13 13:21 | XRay Report ---
XR chest 1V portable CLINICAL HISTORY: weakness COMPARISON STUDY: Chest radiograph December 26, 2020. FINDINGS: There are median sternotomy wires and mediastinal surgical clips. Lung volumes are mildly d iminished. Cardiomediastinal silhouette is stable. Mild left basilar opacities are present. There is no evidence for pulmonary edema. IMPRESSION: Mild left basilar opacity which favors atelectasis or scarring. ACT 112: Negative or not required by law. Electronically signed by: Kyler Marquez M.D. 01/13/2021 1:19 PM
[2021-01-13 13:29] LABS: INR 1.1 (0.9-1.1); Prothrombin Time 10.8 Seconds (9.0-12.0)
[2021-01-13 13:42] LABS: Alanine Aminotransferase 29 U/L (12-78); Albumin Level 2.7 gm/dl (3.4-5.0); Aspartate Aminotransferase 14 U/L (15-37); BUN Creatinine Ratio 21.8 (10-20); Blood Urea Nitrogen 29 mg/dl (7-18); Calcium 9.1 mg/dl (8.5-10.1); Carbon Dioxide 32 mmol/L (21-32); Chloride 95 mmol/L (98-107); Est GFR (African American) 56.7 ml/min; Glucose 469 mg/dl (70-99); Magnesium 2.5 mg/dl (1.8-2.4); Potassium 4.5 mmol/L (3.5-5.1); Sodium 131 mmol/L (136-145)
[2021-01-13 13:47] LABS: Albumin Globulin Ratio 0.6 (0.9-2); Alkaline Phosphatase 152 U/L (45-117); Bilirubin,Total 0.4 mg/dl (0.2-1); Creatine Kinase 48 U/L (39-308); Globulin 4.2 gm/dl (2.5-4.0); Total Protein 6.9 gm/dl (6.4-8.2); Troponin I < 0.015 ng/ml (0-0.045)
[2021-01-13 13:48] LABS: Basophils # (auto) 0.03 K/uL (0-0.2); Basophils % (auto) 0.2 %; Eosinophils # (auto) 0.12 K/uL (0-0.5); Eosinophils % (auto) 0.9 %; Immature Granulocytes # (auto) 0.73 K/uL (0.00-0.02); Immature Granulocytes % (auto) 5.5 %; Lymphocytes # (auto) 0.51 K/uL (1.2-3.4); Lymphocytes % (auto) 3.8 %; Monocytes # (auto) 0.34 K/uL (0.11-0.59); Monocytes % (auto) 2.6 %; Neutrophils # (auto) 11.58 K/uL (1.4-6.5)
[2021-01-13 13:57] LABS: Beta-Hydroxybutyrate 1.81 mg/dl (0.2-2.81)
[2021-01-13 14:00] LABS: RBC Morphology Unremarkable
[2021-01-13 14:04] LABS: Lyme Ab IgG w/WB Rflx Negative (Negative); Lyme Ab IgM w/WB Rflx Negative (Negative)
--- NOTE | 2021-01-13 14:35 | CT Scan Report ---
CT OF THE HEAD WITHOUT CONTRAST CLINICAL HISTORY: weakness COMPARISON STUDY: No previous studies for comparison. TECHNIQUE: Helical axial images of the head were obtained without IV contrast. Automated exposure con trol was utilized for the study. A dose lowering technique was utilized adhering to the principles o f ALARA. FINDINGS: No acute intracranial hemorrhage, midline shift or mass effect is present. The ventricular system is unremarkable. White matter hypodensity suggests small vessel disease. The basal cisterns ar e patent. No extra-axial collections are present. There are no findings to suggest acute dural sinus thrombosis or acute territorial infarct. No significant calvarial abnormalities are present. Visualiz ed portions of the sinuses and mastoid air cells are clear. IMPRESSION: No acute intracranial findings. ACT 112: Negative or not required by law. Electronically signed by: Kyler Marquez M.D. 01/13/2021 2:34 PM
--- NOTE | 2021-01-13 14:57 | CT Scan Report ---
CT OF THE ABDOMEN AND PELVIS WITHOUT CONTRAST CLINICAL HISTORY: weakness, abdominal pain COMPARISON STUDY: CT of the abdomen and pelvis May 04, 2018. Renal ultrasound July 29 8. TECHNIQUE: Axial images of the abdomen and pelvis were obtained without IV contrast. Images were revi ewed in the axial, sagittal, and coronal planes. Automated exposure control was utilized for the hu dy. A dose lowering technique was utilized adhering to the principles of ALARA. FINDINGS: No pneumatosis, free air or portal venous gas is present. No renal, ureteral or bladder yin culi are present. There is no hydronephrosis or hydroureter. A water attenuation lesion within the up per pole the left kidney was shown to reflect a cyst on prior contrast enhanced exam. Evaluation of t he remainder of the abdomen and pelvis is suboptimal on this unenhanced exam. The liver, spleen, adre nal glands and pancreas are unremarkable. There is no biliary ductal dilatation status post cholecyst ectomy. There is no peripancreatic infiltration. The prostate is moderately enlarged. There is no missael dence for a bowel obstruction. There is a moderate amount of stool within the colon and rectum. The a ppendix is unremarkable. There is no lymphadenopathy. Postoperative findings within lumbar spine are noted. CT of the lumbar spine will be reported separately. Infrarenal abdominal aorta is ectatic. IMPRESSION: 1. No urinary calculi or hydronephrosis. Moderately enlarged prostate. 2. No acute process within the abdomen or pelvis on unenhanced exam. 3. Moderate amount stool within the colon and rectum. ACT 112: Negative or not required by law. Electronically signed by: Kyler Marquez M.D. 01/13/2021 2:55 PM
--- NOTE | 2021-01-13 15:03 | CT Scan Report ---
CT lumbar spine wo con CLINICAL HISTORY: weakness in legs, rt ankle COMPARISON STUDY: Lumbar spine MRI April 09, 2019. Lumbar spine radiographs November 10, 2020. TECHNIQUE: Axial images of the lumbar spine were obtained. Sagittal and coronal reconstructions were viewed. Automated exposure control was utilized for the study. A dose lowering technique was utilize d adhering to the principles of ALARA. FINDINGS: Please note that the CT of the abdomen and pelvis will be reported separately. For purposes of numbering on this exam, the L5-S1 disc space is assigned to axial image 179 of 211. There is slig ht retrolisthesis of L2 on L3 and slight anterolisthesis of L3 on L4. There is mild anterolisthesis o f L4 and L5 and mild retrolisthesis of L5 on S1. Posterior decompression is noted from L3 through L4. Bilateral pedicle screw fusion from L2 through L5 is noted with lateral bone graft material. The arcenio dware is intact. There is no acute lumbar spine fracture. No suspicious lesions are noted. Severe mul tilevel disc space narrowing is noted. The central canal and neural foramen are suboptimally assessed by CT. Sacroiliac joints are intact. Bone harvest site within the right iliac bone is noted. IMPRESSION: 1. No acute lumbar spine fracture or subluxation. 2. Status post L3-L4 laminectomy and L2-L5 bilateral pedicle screw fusion. Hardware intact. 3. Severe multilevel disc space narrowing. Suboptimal evaluation of the central canal and neural fora men given CT technique. ACT 112: Negative or not required by law. Electronically signed by: Kyler Marquez M.D. 01/13/2021 3:02 PM
--- NOTE | 2021-01-13 16:17 | History & Physical Report ---
Date of Service January 13, 2021 Assessment & Plan (1) Weakness: Unclear definitive etiology. Relatively sudden onset over the last 3 to 4 weeks without any improved with doxycycline (Rx for PNA) or steroids (Rx for ?PMR/RA). Associated symptoms of vision blurring and reduced appetite. ?Hyperglycemia vs neoplastic vs cardiac vs myasthenia vs steroid-induced myopathy vs. lumbar stenosis vs hypotension Suspect leucocytosis from steroids PSA unremarkable CRP/ESR/myasthenia panel/procalcitonin with AM labs MRI brain w w/o contrast CT C/A/P with IV contrast TTE Consult neurology Stop amlodipine given current low normal BP (2) Elevated alkaline phosphatase level: See above. (3) Hyperglycemia: Suspect secondary to steroids. Possibly contributing towards generalized weakness HbA1C with AM labs Hold glipizide Consult pharmacy for glycemic control with basal bolus insulin (4) Lumbar stenosis with neurogenic claudication: Previous spinal surgery last year. Lumbar spine CT showing hardware intact 5 9 specific reason to believe this is constantly worse in the last 3 to 4 weeks to explain his weakness. (5) A-fib: Currently in NSR Continue anticoagulation with apixaban (6) CAD (coronary artery disease): Notable history of this but would not explain his muscle aches. Continue on ASA, apixaban, metoprolol, olmesartan. Rosuvastatin currently on hold per outpatient provider. (7) Rheumatoid arthritis: No active flare suspected, continue his usual prednisone 5mg PO daily and methotrexate 15mg PO weekly (8) GERD (gastroesophageal reflux disease): Continue pantoprazole 40mg PO daily (9) Hypertension: Given low normal BP will discontinue amlodipine Admission and Anticipated Discharge Date Admission Date: January 13, 2021 History of Present Illness Chief Complaint: Generalized muscle weakness Primary Care Provider: DO Kapil Mcmanus Wes is an 85 year old male who presents to the ER with genera lized weakness and muscle aches. This has been progressing for the last 3-4 weeks. No worse at the end of the day than the start. It is on a background however of prior lumbar spinal stenosis requiring surgery last year. He reports he was cycling on a stationary bike for around 20 minutes a few times a week prior to one month ago but now is having to use a walker to get around. Associated blurring of his eyesight and reduced appetite. He denies any abdominal pain, nausea, vomiting, diarrhea, melena or bright red blood in stool. No loss of eyesight, he has not been to see an linux admin for this. He reports his muscle weakness is bilateral and mostly in his proximal muscles in his lower extremities. Also having the occasional headache, he is more short of breath on exertion and dizziness. He went to see his electronic drafter but did not feel this was cardiac related. He saw his jackscrew man who treated him with a Medrol Dosepak followed by course of tapered prednisone from his PCP (ESR was elevated therefore possible PMR was considered. He was seen in the ER previously on December 26 without any significant findings. His PCP did prescribe him doxycycline after this visit as well in case of pneumonia as mild changes noted on CXR. He has not noticed any improvement with these interventions. Due to muscle aches he was taken of Crestor by his electronic drafter on but this also didn't help. He denies any joint current aches although his shoulders have required injections in October due to ongoing RA pains. Aches currently in his muscles with associated thigh muscle loss. He had his second COVID-19 vaccination October 26. No fever, chills, orthopnea, PND, chest pain, abdominal pain, back pain. In the ER CT A/P without contrast, CT head, Lumbar spine CT all unremarkable as a cause of his symptoms. Labs showed a mild leucocytosis. He is hyperglycemic with glucose 493. Allergies Allergy/AdvReac Type Severity Reaction Status Date / Time No Known Allergies Allergy Mild NONE Verified 01/13/21 14:15 Home Medications Medication Instructions Recorded Confirmed Type B-complex with vitamin C [Super B 1 tab PO QAM 08/07/18 01/13/21 History Complex-Vitamin C] amlodipine [Norvasc] 5 mg PO QAM 08/07/18 01/13/21 History aspirin 81 mg PO HS 08/07/18 01/13/21 History cholecalciferol (vitamin D3) 1,000 unit PO QAM 08/07/18 01/13/21 History [Vitamin D3] coenzyme Q10 [CoQ-10] 100 mg PO QPM 08/07/18 01/13/21 History folic acid 1 mg PO QPM 08/07/18 01/13/21 History methotrexate sodium 15 mg PO WK 08/07/18 01/13/21 History olmesartan 20 mg PO QAM 08/07/18 01/13/21 History prednisone 5 mg PO QAM 08/07/18 01/13/21 History rosuvastatin [Crestor] 10 mg PO QPM 08/07/18 01/13/21 History apixaban 5 mg tablet 5 mg PO BID tab 09/04/18 01/13/21 History metoprolol tartrate 50 mg tablet 50 mg PO BID tab 09/04/18 01/13/21 History glipizide 5 mg tablet 2.5 mg PO QAM 06/14/20 01/13/21 History PreserVision AREDS-2 1 tab PO BID 10/24/20 01/13/21 History furosemide [Lasix] 20 mg PO QAM 10/24/20 01/13/21 History pantoprazole [Protonix] 40 mg PO QPM 10/24/20 01/13/21 History ferrous sulfate 143 mg PO DAILY 01/13/21 01/13/21 History Past Med/Surg History Medical History (Updated 01/14/21 @ 07:12 by Jesusita Pimentel MD) A-fib PAROXYSMAL; ON APIXABAN DX JUN 04 2020 NO HX CARDIOVERSION Benign prostatic hyperplasia with urinary obstruction HX CAD (coronary artery disease) S/P CABG X 3 (2006) Chronic back pain GERD (gastroesophageal reflux disease) Hyperlipidemia Hypertension Myocardial Infarction S/P CABG X 3 (2006) Myofascial pain Rheumatoid arthritis Sleep apnea DEVICE RECOMMENED - PT COULDN'T TOLERATE , DOES NOT USE Type 2 diabetes mellitus NIDDM Surgical History H/O repair of left rotator cuff X 2 H/O repair of right rotator cuff History of cardiac cath 2006 ...MA...[place], NO STENT(S) ...CABG History of cataract extraction BILAT History of cholecystectomy History of colonoscopy History of esophagogastroduodenoscopy (EGD) History of tooth extraction Hx of CABG S/P CABG X 3 (2006) S/P left knee arthroscopy HX Status post lumbar spinal fusion L2-5 posterior decompression and fusion August 2019 Dr. Perez Family History Sister Family history of diabetes mellitus Cancer Father Hypertension Social History Smoking Status: Former smoker Second Hand Exposure: No; Do You Dip or Chew Tobacco: No; Hx Alcohol Use: No Hx Substance Use: No Preferred Language: Citizen Of [place] Communication Ability: Effective Visual Impairment: Limited Hearing Ability: Normal Bandsaw Operator Required: No Beliefs That Will Affect Care: None marital status: Current Living Situation: Spouse current occupational status: retired Other Information That Helps Us Care for You: No Feels Safe at Home: Yes Safety Concerns: Feels Safe At This Time Assistive Devices: Denture - Upper, Glasses and Walker Review of Systems Review of Systems: All systems reviewed & are unremarkable except as noted in HPI & below Physical Exam Constitutional: WD/WN, vitals as above Eyes: PERRL, conjunctivae normal, anicteric sclerae ENMT: external ear and nose normal, oropharynx normal Neck: trachea midline Respiratory: normal respiratory effort, lungs clear to auscultation Cardiovascular: Rate/Rhythm: regular rate and regular rhythm Heart Sounds: no murmur Vessels: no JVD Extremities: normal capillary refill and + pedal edema (1+ ankles only); no calf tenderness Gastrointestinal (Abdomen): normal bowel sounds, soft, nontender, no hepatosplenomegaly Musculoskeletal: Proximal muscle wasting Skin: no rashes, warm and dry Neurologic: CN's II-XI intact bilaterally, moves all extremities, + focal motor deficit (4/5 RLE power with mild foot drop) and awake; not confused Psychiatric: A+Ox3, euthymic affect Genitourinary: no CVA tenderness Results & Data Results & Data ([facility]) Vital Signs (Past 12 Hours) Vital Signs Temp Pulse Pulse Resp BP BP Pulse Ox 01/13/21 15:30 67 25 H 01/13/21 15:20 67 23 01/13/21 15:10 72 22 01/13/21 15:00 70 20 01/13/21 14:50 69 26 H 01/13/21 14:40 75 22 01/13/21 14:30 72 23 01/13/21 14:20 73 26 H 01/13/21 14:10 78 26 H 01/13/21 14:06 79 24 01/13/21 13:30 74 75 31 H 113/63 113/63 95 01/13/21 13:20 77 22 01/13/21 13:10 73 25 H 01/13/21 13:00 72 31 H 01/13/21 12:15 36.4 C L 82 18 125/[address] OF THE HEAD WITHOUT CONTRAST IMPRESSION: No acute intracranial findings. XR chest 1V portable IMPRESSION: Mild left basilar opacity which favors atelectasis or scarring. CT OF THE ABDOMEN AND PELVIS WITHOUT CONTRAST IMPRESSION: 1. No urinary calculi or hydronephrosis. Moderately enlarged prostate. 2. No acute process within the abdomen or pelvis on unenhanced exam. 3. Moderate amount stool within the colon and rectum. CT lumbar spine wo con IMPRESSION: 1. No acute lumbar spine fracture or subluxation. 2. Status post L3-L4 laminectomy and L2-L5 bilateral pedicle screw fusion. Hardware intact. 3. Severe multilevel disc space narrowing. Suboptimal evaluation of the central canal and neural foramen given CT technique. Medications Administered ER medications given: NSS 250 mL bolus Insulin 5 units IV ECG Rate (beats per minute): 69 Rhythm: normal sinus Findings: no acute ischemic change Comparison ECG Date: from (December 27, 2019) Change: no significant change PG Care Time/CCT Total # of Minutes Spent Total Time Spent with Patient: Total time spent is greater than 50% in coordination of care (as documented) at patient's floor/unit and/or counseling patient: Coding Level of Care Code 20254 OBS Care - Level 3 Diagnoses Weakness R53.1 Elevated alkaline phosphatase level R74.8 Hyperglycemia R73.9 Lumbar stenosis with neurogenic claudication M48.062 A-fib I48.91 CAD (coronary artery disease) I25.10 Rheumatoid arthritis M06.9 GERD (gastroesophageal reflux disease) K21.9 Hypertension I10
[2021-01-13] MEDS ORDERED: GADOBUTROL 7.5ML VIAL IV ONE (17:45)
[2021-01-13] MEDS ORDERED: ONDANSETRON INJ 2 MG/ML 2 ML VIAL IV PRN (18:06)
[2021-01-13] MEDS ORDERED: ACETAMINOPHEN 325 MG TAB PO PRN (18:06)
[2021-01-13] MEDS ORDERED: PHARMACY GLYCEMIC MGMT CONSULT PRN (18:14)
--- NOTE | 2021-01-13 18:19 | Magnetic Resonance Report ---
MRI OF THE BRAIN WITHOUT AND WITH IV CONTRAST CLINICAL HISTORY: bilateral proximal lower extremity weakness COMPARISON STUDY: Head CT performed earlier today. TECHNIQUE: Utilizing a 1.5 Millicent magnet and dedicated coil, multiplanar, multiecho imaging of the br ain was performed pre and postcontrast administration. IV administration of 7.5 mL of Gadavist contr ast was uneventful. FINDINGS: There are no foci of restricted diffusion to suggest acute infarct. No acute intracranial h emorrhage, midline shift or mass effect is present. There is moderate atrophy. Basal cisterns are pat ent. There are no extra-axial collections. Mild white matter T2 hyperintense foci reflect small vesse l disease. No intracranial mass or pathologic enhancement is identified. Calvarial signal is within n ormal limits. Flow-voids for the major intracranial vessels are present. IMPRESSION: 1. No acute intracranial findings. 2. No intracranial mass or pathologic enhancement. ACT 112: Negative or not required by law. Electronically signed by: Kyler Marquez M.D. 01/13/2021 6:17 PM
[2021-01-13] MEDS ORDERED: INSULIN GLARGINE SOLOSTAR 100 UNITS/ML 3 ML PEN SC STA (18:53)
[2021-01-13] MEDS ORDERED: GLUCOSE 40% GEL 15 GM TUBE PO PRN (19:00)
[2021-01-13] MEDS ORDERED: DEXTROSE 50% 50 ML SYRINGE IV PRN (19:00)
[2021-01-13] MEDS ORDERED: GLUCOSE 10 TABS/TUBE PO PRN (19:00)
[2021-01-13] MEDS ORDERED: CARBOHYDRATES FOR HYPOGLYCEMIA PO PRN (19:00)
[2021-01-13] MEDS ORDERED: GLUCAGON FOR INJ 1 MG VIAL IM PRN (19:00)
[2021-01-13] MEDS: INSULIN ASPART 100 UNITS/ML 3 ML PEN SC SCH ×2 (19:48→20:10)
[2021-01-13 19:49] LABS: Appearance Urine Clear (Clear); Bacteria Urine Automated Negative (Negative); Bilirubin Urine Negative (Negative); Blood Urine Negative (Negative); Cast Urine Automated 0 /lpf (0-5); Color Urine Dark Yellow; Epithelial Cell Urine Auto 0-5 /lpf (0-5); Glucose Urine UA 3+ (Negative); Ketones Urine Negative (Negative); Leukocyte Esterase Urine Negative (Negative); Nitrite Urine Negative (Negative); Protein Urine Trace (Negative); RBC Urine Automated 0-4 /hpf (0-4); Specific Gravity Urine 1.038 (1.000-1.030); Urobilinogen Urine Negative (Negative); WBC Urine Automated 0 /hpf (0-5)
[2021-01-13] MEDS: PANTOprazole 40 MG TAB PO SCH (20:05)
[2021-01-13] MEDS: FOLIC ACID 1 MG TAB PO SCH (20:05)
[2021-01-13] MEDS: METOPROLOL TARTRATE 50 MG TAB PO SCH (20:05)
[2021-01-13] MEDS: ASPIRIN 81 MG ECTAB PO SCH (20:05)
[2021-01-13] MEDS: APIXABAN 5 MG TABLET PO SCH (20:05)
[2021-01-13] MEDS ORDERED: NON-FORMULARY MEDICATION (Coenzyme Q10 [Coq-10] 100 mg Capsule) PO SCH (21:00)
[2021-01-14] MEDS: INSULIN ASPART 100 UNITS/ML 3 ML PEN SC SCH ×6 (00:11→20:45)
[2021-01-14 06:22] LABS: Hematocrit (blood only) 36.2 % (42-52); Mean Corpuscular Hemoglobin 30.6 pg (25-34); Mean Corpuscular Hgb Conc 33.1 g/dL (32-36); Mean Corpuscular Volume 92.3 fL (80-100); Mean Platelet Volume 9.1 fL (7.4-10.4); Nucleated RBC # (auto) 0.03 K/uL (0-0); Nucleated RBC % (auto) 0.2 %; Platelet Count 309 K/uL (130-400); RDW Coefficient of Variation 16.2 % (11.5-14.5); RDW Standard Deviation 53.8 fL (36.4-46.3); Red Blood Count 3.92 M/uL (4.7-6.1); White Blood Count 15.39 K/uL (4.8-10.8)
[2021-01-14 06:55] LABS: ANC (manual) 13.37 K/uL (1.4-6.5); Lymphocytes % (manual) 5.2 %; Monocytes # (manual) 1.08 K/uL (0.11-0.59); Myelocytes # (manual) 0.14 K/uL (0-0); Myelocytes % (manual) 0.9 %; Neutrophils # (manual) 13.37 K/uL (1.4-6.5); Neutrophils % (manual) 86.9 %
[2021-01-14 07:00] LABS: Albumin Level 2.4 gm/dl (3.4-5.0); BUN Creatinine Ratio 22.8 (10-20); Calcium 8.4 mg/dl (8.5-10.1); Creatinine Clr Calc Pharmacy 43.1 ml/min; Est GFR (African American) 69.3 ml/min; Est GFR (Non-African American) 59.8 ml/min; Potassium 4.4 mmol/L (3.5-5.1)
[2021-01-14 07:03] LABS: Albumin Globulin Ratio 0.6 (0.9-2); Bilirubin,Total 0.4 mg/dl (0.2-1); C Reactive Protein 1.17 mg/dl (0-0.29); Globulin 3.7 gm/dl (2.5-4.0); Total Protein 6.1 gm/dl (6.4-8.2)
--- NOTE | 2021-01-14 07:08 | Neurology Consultation ---
Date of Consultation January 14, 2021 Assessment & Plan (1) Type 2 diabetes mellitus: (2) Rheumatoid arthritis: (3) Generalized weakness: Kapil Harvey is an 85 yo man w/ PMH of AFib on ASA/apixaban, CAD s/p CABG, chronic LBP, DM, HTN, HLD, h/o [place], GERD, [place] not on CPAP, lumbar spinal stenosis s/p fusion and trigger point injections and rheumatoid arthritis on chronic prednisone/MTX who p/t [facility] with hyperglycemia, generalized weakness, tiredness, blurry vision, lightheadedness and mild headache that has been present for several weeks. # Generalized weakness: in setting of uncontrolled DM for at least the past month with BGs in the 300s+ and chronic steroid use putting him at risk for steroid myopathy, however, he endorses a significant amount of pain which is not typical of steroid myopathy. Does have picture c/b known chronic LBP with multiple surgeries/LESI or injections and known lumbar claudication and RA on chronic prednisone/MTX that puts him at risk for insidious infections (as well as deconditioning given his age in general). Also has right foot drop and neuropathy on examination (likely 2/2 uncontrolled DM). - f/u MG labs - agree with TTE to r/o CHF - work on better BG control with PCP - consider MRI L-spine with attention to the plexus given uncontrolled DM - PT eval, will likely benefit from rehab vs intensive outpatient therapy - if symptoms persist, recommend outpatient EMG for further workup - would also obtain ABIs/LE Dopplers to r/o PAD Thank you for this interesting consult. Plan of care discussed with primary team. Please call or text of questions. 60 minutes was spent [id number] with patient, with more than 50% spent on counseling/coordination of care/charting. History of Present Illness Attending Physician: Alejandro Martinez MD History of Present Illness Kapil Harvey is an 85 yo man w/ PMH of AFib on ASA/apixaban, CAD s/p CABG, chronic LBP, DM, HTN, HLD, h/o [place], GERD, [place] not on CPAP, lumbar spinal stenosis s/p fusion and trigger point injections and rheumatoid arthritis on chronic prednisone/MTX who p/t [facility] with hyperglycemia, generalized weakness, tiredness, blurry vision, lightheadedness and mild headache that has been present for several weeks. In the ED, he was afebrile, BP 125/76, heart rate 82, respiratory rate 18, satting 95% room air. Labs notable for WBC 13.31, hemoglobin low at 12.2, platelets 318, sodium low 131, potassium 4.5, chloride low at 95, BUN elevated 29, creatinine 1.31, glucose significantly elevated 469, INR 1.1, GFR 49, calcium 9.1, magnesium mildly elevated 2.5, AST/ALT within normal with elevated alkaline phosphatase 152, CK 48, troponin negative, albumin low 2.7, beta hydroxybutyrate 1.1 within normal, TSH within normal, lactate within normal, Lyme screen negative, Covid negative. Further lab work shows elevated ESR 55, CRP elevated to 1.17, procalcitonin normal 0.08, PSA elevated 6.17, UA no infection, no intranuclear inclusions noted on anaplasmosis smear. Myasthenic antibodies and A1c pending. CT abdomen pelvis shows moderately enlarged prostate with moderate stool burden but no acute process noted. Chest x-ray shows mild left basilar opacity favors atelectasis or scarring but no pneumonia. CT spine shows severe multilevel disc disease with prior laminectomy at L3-L4 and bilateral pedicle screw fusion L2-L5 with no acute fracture or subluxation noted. Further imaging independently reviewed. CT head shows no hemorrhage or hypodensity. MRI brain shows no acute or chronic infarct, no microhemorrhages, minimal to mild S VID, moderate generalized atrophy with ex vacuo dilation is present, no abnormal contrast-enhancement noted. Of note, prior TTE from 09/2020 showed EF of 55% but severe hypokinesis to akinesis of the inferoseptal and basal to mid inferior kruger with mild LVH noted as well. On examination, he reports he has had a several month history of generalized weakness 2/2 pain in his bilateral shoulders (left worse than right), back and bilateral knees. The pain is similar to the pain that he has felt in the past from his RA symptoms. He does not think pain varies much whether he is moving or resting. He is able to ambulate with a walker and is unsteady otherwise. Denies any falls or injuries. Has been exercising less due to the pain. He denies any fatiguable weakness, diplopia, speech or vision problems, swallowing difficulty, rashes other than the skin breakdown on his buttocks region from sitting more, or breathing difficulties. Did have COVID in 08/2020 after which symptoms developed but no clear temporal relation to this. Is on MTX/chronic prednisone for RA. Allergies Allergy/AdvReac Type Severity Reaction Status Date / Time No Known Allergies Allergy Mild NONE Verified 01/13/21 14:15 Home Medications Medication Instructions Recorded Confirmed Type B-complex with vitamin C [Super B 1 tab PO QAM 08/07/18 01/13/21 History Complex-Vitamin C] amlodipine [Norvasc] 5 mg PO QAM 08/07/18 01/13/21 History aspirin 81 mg PO HS 08/07/18 01/13/21 History cholecalciferol (vitamin D3) 1,000 unit PO QAM 08/07/18 01/13/21 History [Vitamin D3] coenzyme Q10 [CoQ-10] 100 mg PO QPM 08/07/18 01/13/21 History folic acid 1 mg PO QPM 08/07/18 01/13/21 History methotrexate sodium 15 mg PO WK 08/07/18 01/13/21 History olmesartan 20 mg PO QAM 08/07/18 01/13/21 History prednisone 5 mg PO QAM 08/07/18 01/13/21 History rosuvastatin [Crestor] 10 mg PO QPM 08/07/18 01/13/21 History apixaban 5 mg tablet 5 mg PO BID tab 09/04/18 01/13/21 History metoprolol tartrate 50 mg tablet 50 mg PO BID tab 09/04/18 01/13/21 History glipizide 5 mg tablet 2.5 mg PO QAM 06/14/20 01/13/21 History PreserVision AREDS-2 1 tab PO BID 10/24/20 01/13/21 History furosemide [Lasix] 20 mg PO QAM 10/24/20 01/13/21 History pantoprazole [Protonix] 40 mg PO QPM 10/24/20 01/13/21 History ferrous sulfate 143 mg PO DAILY 01/13/21 01/13/21 History Patient History Medical History A-fib PAROXYSMAL; ON APIXABAN DX JUN 04 2020 NO HX CARDIOVERSION Benign prostatic hyperplasia with urinary obstruction HX CAD (coronary artery disease) S/P CABG X 3 (2006) Chronic back pain GERD (gastroesophageal reflux disease) Hyperlipidemia Hypertension Myocardial Infarction S/P CABG X 3 (2006) Myofascial pain Rheumatoid arthritis Sleep apnea DEVICE RECOMMENED - PT COULDN'T TOLERATE , DOES NOT USE Type 2 diabetes mellitus NIDDM Surgical History H/O repair of left rotator cuff X 2 H/O repair of right rotator cuff History of cardiac cath 2006 [place], NO STENT(S) ...CABG History of cataract extraction BILAT History of cholecystectomy History of colonoscopy History of esophagogastroduodenoscopy (EGD) History of tooth extraction Hx of CABG S/P CABG X 3 (2006) S/P left knee arthroscopy HX Status post lumbar spinal fusion L2-5 posterior decompression and fusion August 2019 Dr. Perez Family History Sister Family history of diabetes mellitus Cancer Father Hypertension Social History Smoking Status: Former smoker Second Hand Exposure: No; Do You Dip or Chew Tobacco: No; Hx Alcohol Use: No Hx Substance Use: No Preferred Language: Arabic Communication Ability: Effective Visual Impairment: Limited Hearing Ability: Normal Ic Engineer Required: No Beliefs That Will Affect Care: None marital status: Current Living Situation: Spouse current occupational status: retired Other Information That Helps Us Care for You: No Feels Safe at Home: Yes Safety Concerns: Feels Safe At This Time Assistive Devices: Denture - Upper, Glasses and Walker Review of Systems Review of Systems: 14 point review of systems completed and negative except as in HPI. Exam (Neuro) Physical Exam: General Exam: GEN: NAD, sitting in bed HEENT: No conjunctival injection, no rhinorrhea. CV: RRR, no peripheral edema PULM: Nonlabored respirations on room air. Neuro Exam: MS: Awake and Alert. Oriented to person, place, and month/year. Speech fluent and appropriate without dysarthria or paraphasic errors. Language intact including naming, comprehension, repetition. Cognition and memory grossly intact. Attention intact. No neglect. CN: Visual rojas full. No extinction to double simultaneous stimuli. Unable to visualize fundi on fundoscopic exam. PERRLA OU. EOMI without nystagmus. Facial sensation intact to LT. Facial muscles full and symmetric. Hearing intact to conversation. Shoulder shrug normal. Tongue midline. MOTOR: Normal bulk and tone. No pronator drift. BUE strength 5/5 at deltoids, biceps, triceps, wrist flexors and extensors, and hand grasp bilaterally. BLE strength 5-/5 at iliopsoas, hamstrings, quadriceps, left tibialis anterior, and gastrocnemius; right tibialis anterior is 4+/5 (subtle right foot drop present). REFLEXES: 1+ at biceps, triceps, brachioradialis, trace patella and absent Achilles bilaterally. Flexor plantar responses bilaterally. SENSORY: Intact to LT without extinction to double simultaneous stimuli. Vibration mildly diminished in BLEs up to the knees. COORDINATION: No dysmetria or ataxia on [id number] and [id number]-aw-[id number] bilaterally. Normal Jones bilaterally. GAIT: Broad based, antalgic gait with normal arm swing. Normal Romberg. Results & Data ([facility]) Vital Signs (Past 12 Hours) Vital Signs Temp Pulse Pulse Resp BP Pulse Ox 01/14/21 04:00 36.6 C 67 18 123/67 96 01/14/21 03:40 79 01/13/21 23:26 36.5 C 84 18 124/69 94 01/13/21 19:00 36.6 C 85 18 118/67 94 PG Care Time/CCT Total # of Minutes Spent Total Time Spent with Patient: Total time spent is greater than 50% in coordination of care (as documented) at patient's floor/unit and/or counseling patient: Coding Level of Care Code 42171 Initial Inpt Care Lvl 3 Diagnoses Type 2 diabetes mellitus E11.9 Rheumatoid arthritis M06.9 Generalized weakness R53.1
[2021-01-14 07:22] LABS: Smudge Cells Present
--- NOTE | 2021-01-14 07:46 | Hospitalist Progress Note ---
Date of Service January 14, 2021 Assessment & Plan (1) Generalized weakness: 85yo male with a history of lumbar stenosis s/p fusion, chronic low back pain, RA on chronic methotrexate, atrial fibrillation (on ASA and eliquis), CAD s/p CABG, history of PR, poorly-controlled DM2, HTN, HLD, and GERD who presents with a one-month history of progressive weakness, fatigue, and blurry vision. Differential includes worsening of lumbar stenosis, complications from poorly- controlled DM2, CHF, deconditioning, malignancy, infection given chronic methotrexate use. Unlikely steroid myopathy as patient was not on chronic steroids prior to recent medrol homepack with subsequent prednisone taper; unlikely CHF given acute onset of symptoms alongside relatively mild diastolic dysfunction on echo (01/14). Progressive weakness, fatigue, blurry vision CT head, MRI brain, CXR, chest CT, CT abdomen/pelvis without obvious etiology of symptoms Follow up myasthenia gravis labs Echo (01/14) EF 55-60%, mild diastolic dysfunction Ankle-brachial index results wnl, suggests against claudication MRI lumbar spine most notable for severe bilateral neural foraminal stenosis at L4-L5, L5-S1 PT/OT eval - consider inpatient rehab vs intensive outpatient rehab Neurology following Low back pain increased after patient went for MRI - toradol 15mg IV q6h prn ordered Continue prednisone 5mg PO qAM DM2 Poorly-controlled BSG in the setting of steroid use Holding home meds Continue ISS Work with PCP after discharge to improve control RA Continue methotrexate 15mg PO qSunday CHF Continue lasix 20mg PO qMWF Atrial fibrillation Currently rate-controlled and in sinus rhythm Continue eliquis 5mg bid Continue ASA 81mg qhs Continue metoprolol tartrate 50mg PO bid HTN Continue metoprolol as above Continue olmesartan CAD, HLD Holding home crestor GERD Continue pantoprazole 40mg PO qPM FEN: DM2, heart healthy diet Code status: conditional (no chest compressions or defibrillation) DVT ppx: eliquis Isolation: none Held home meds: crestor Consults: neurology Dispo: med/surg Admission and Anticipated Discharge Date Admission Date: January 13, 2021 Supervising Physician Co-Signing Physician Notes I personally examined the patient and verified all radford points of history and exam, discussed case, and agree with decision making with Dr Szuminski back pain. weakness. L buttock pain as well vitals noted nad heent nc at mmm breathing unlabored no accessory muscles good effort. no spinal tenderness, (+) L sided piriformis region muscles high tone/tender/decreased ROM - LAS/inhibitory pressure - improved. muscle atrophy proximal thighs noted. back pain/weakness/proximal muscle wasting - broad w/u - although strongly suspect spinal stenosis playing a large role. hopefully decompression/injections could help, surgery as last resort. PT/OT eval and treat. OMT for piriformis dysfunction done. ongoing workup/eval/etc otherwise as above Subjective Patient seen and evaluated at bedside this morning. No acute events overnight. Patient reports persistent fatigue and weakness with mild back pain, but feels well overall. Denies CP, SOB, vision changes, abdominal pain, nausea, vomiting, fever, chills, dysuria, or other symptoms. Review of Systems Review of Systems: See HPI Results & Data Results & Data ([facility]) Vital Signs (Past 12 Hours) Vital Signs Temp Pulse Pulse Resp BP Pulse Ox 01/14/21 07:35 36.6 C 72 18 121/69 92 01/14/21 04:00 36.6 C 67 18 123/67 96 01/14/21 03:40 79 01/13/21 23:26 36.5 C 84 18 124/69 94 Resident Activity Tracking Resident Involvement: Resident Care Provided Care Provided: Adult Hospital Medicine
[2021-01-14] MEDS: OLMESARTAN MEDOXOMIL 20 MG TAB PO SCH (07:58)
[2021-01-14] MEDS: FERROUS SULFATE 325 MG TAB PO SCH (07:58)
[2021-01-14] MEDS: METOPROLOL TARTRATE 50 MG TAB PO SCH ×2 (07:58→20:40)
[2021-01-14] MEDS: APIXABAN 5 MG TABLET PO SCH ×2 (07:58→20:40)
[2021-01-14] MEDS: predniSONE 5 MG TAB PO SCH (07:59)
[2021-01-14] MEDS: CHOLECALCIFEROL 1,000 UNITS 25 MCG TAB PO SCH (07:59)
[2021-01-14] MEDS ORDERED: metHOTREXate sodium 2.5 MG TAB PO SCH (09:00)
--- NOTE | 2021-01-14 09:35 | Pharmacy Report ---
Pharmacy Glycemic Short Note 2 - Date of Service January 14, 2021 - Glycemic Short BSG Results (Last 24 hours): 01/13/21 01/13/21 01/13/21 12:17 13:02 14:42 Glucose 469 H* POC Glucose 493 H* 364 H* 01/13/21 01/13/21 01/13/21 18:27 19:28 21:00 Glucose POC Glucose 371 H* 406 H* 425 H* 01/14/21 01/14/21 01/14/21 00:01 04:04 05:56 Glucose 76 POC Glucose 247 H 102 H 01/14/21 07:31 Glucose POC Glucose 88 OUTPATIENT ANTIDIABETIC REGIMEN: * Glipizide 2.5 mg PO daily * Of note: patient on chronic prednisone 5 mg PO daily * HbA1c ordered and pending ASSESSMENT: * NOMRA is an 85 year old male admitted on 01/13 with generalized weakness * Patient reports very poor blood sugars over past week - higher doses of prednisone ordered during this time * BSGs in excess of 400 mg/dL on admission - likely steroid-induced hyperglycemia * BSGs corrected overnight with Lantus 20 units and 26 units of bolus insulin * Fasting BSG of 88 mg/dL this morning * Will loosen Novolog and hold off on more basal at this time * Continues on prednisone 5 mg PO daily * Improvement in SCr overnight, 1.31 -> 1.11 mg/dL PLAN FOR INPATIENT GLYCEMIC CONTROL: * Hold outpatient oral diabetes medications * Basal insulin ~ 20-40% reduction * Lantus 12-16 units SC HS (see EHR for details) * Bolus insulin * NovoLog per scale ACHS or Q6hrs while NPO * Goal Range: Low 110 mg/dL - High 140 mg/dL * Correction Factor: 30 mg/dL/unit * Nutritional / Prandial insulin per carb ratio of 1 unit per 10 grams CHO consumed PLAN FOR DISCHARGE: * awaiting HbA1c
[2021-01-14] MEDS ORDERED: OPTIRAY 320 100ml IV ONE (09:46)
--- NOTE | 2021-01-14 10:23 | Electrocardiogram Report ---
Test Reason : Blood Pressure : / mmHG Vent. Rate : 069 BPM Atrial Rate : 069 BPM P-R Int : 172 ms QRS Dur : 096 ms QT Int : 402 ms P-R-T Axes : 037 -06 014 degrees QTc Int : 430 ms Normal sinus rhythm Early Transition When compared with ECG of 26-DEC-2020 17:36, No significant change was found Confirmed by Wai Medel ([id number]) on 01/14/2021 10:22:58 AM Referred By: REFERRED SELF Confirmed By:Wai Medel
--- NOTE | 2021-01-14 11:07 | CT Scan Report ---
CT SCAN OF THE CHEST, ABDOMEN, AND PELVIS WITH IV CONTRAST CLINICAL HISTORY: Weight loss. Generalized weakness. COMPARISON STUDY: Chest x-ray dated 01/13/2021. Unenhanced abdominal CT dated 01/13/2021. TECHNIQUE: Following the IV administration of 88 of Optiray 320, CT scan of the chest, abdomen, and p aleta was performed from the thoracic inlet to the proximal femora. Images are reviewed in the axial, sagittal, and coronal planes. IV contrast was administered without complication. A dose lowering te chnique was utilized adhering to the principles of ALARA. CT DOSE: 622.56 mGy.cm FINDINGS: CHEST: Thyroid: Imaged portions of the thyroid gland are normal in size and attenuation. Thoracic aorta: There is atherosclerotic calcification of the thoracic aorta, which is normal in shannon susan and demonstrates standard 3-vessel arch anatomy. No dissection is seen. Pulmonary vasculature: The pulmonary trunk is normal in caliber. There are no filling defects identif ied in the central pulmonary vessels to indicate pulmonary embolus. Note that this examination was no t protocoled for evaluation of the pulmonary arteries. Heart: The patient is status post midline sternotomy. The heart is top normal in size and without per icardial effusion. The coronary arteries are densely calcified. Lungs and pleural spaces: Mild emphysematous change is noted. There is mild elevation of the right he midiaphragm. No airspace consolidation or pleural effusion is identified. Foci of parenchymal scarrin g are seen throughout both lungs. The trachea and central airways are clear. No concerning pulmonary lesion is identified. Mediastinum: There is no mediastinal lymphadenopathy. Charlene: Clear. Axillae: There is no axillary lymphadenopathy. Bony thorax: The skeletal structures are osteopenic. Degenerative change is noted in the shoulders an d thoracic spine. No lytic or blastic lesions are identified. ABDOMEN AND PELVIS: Liver: The contrast-enhanced liver is normal in size, contour, and attenuation. There is no intra- or extrahepatic biliary ductal dilatation. The hepatic veins and portal veins are patent. Gallbladder: Surgically absent noting clips in the gallbladder fossa. Spleen: Normal in size and attenuation. Pancreas: Unremarkable. Adrenal glands: Unremarkable. Kidneys: The contrast enhanced kidneys demonstrate cortical atrophy and are without hydronephrosis. T here is a 3.2 cm cyst in the left upper pole. The kidneys enhance symmetrically. Abdominal vasculature: There is advanced atherosclerotic calcification and mild ectasia of the abdomi nal aorta. Bowel: There is mild to moderate constipation. No bowel obstruction is seen. The appendix is well-vi sualized and normal. Peritoneum: There is no intraperitoneal free air or abdominal ascites. Lymphadenopathy: None. Pelvic viscera: The prostate gland is enlarged and heterogeneous measuring 6 cm in transverse diamete r. There is median lobe hypertrophy. The bladder wall appears thickened and trabeculated indicating c hronic outlet obstruction. Skeletal structures: The skeletal structures are osteopenic. There is spondylotic change throughout t he lumbosacral spine with evidence of L2-L5 spinal fusion. A bone graft donor site is noted in the ri ght ilium. No lytic or blastic lesions are seen. IMPRESSION: 1. Emphysema and chronic pulmonary parenchymal changes as above. 2. There is no airspace consolidation or pleural effusion. 3. There are no acute infectious or inflammatory findings in the abdomen or pelvis. 4. Advanced coronary artery calcification. 5. Mild to moderate constipation. 6. Prostatomegaly with evidence of chronic bladder outlet obstruction. 7. Additional findings as above. ACT 112: Negative or not required by law. Electronically signed by: Frederick Petersen M.D. 01/14/2021 11:05 AM
--- NOTE | 2021-01-14 14:43 | Ultrasound Report ---
ULTRASOUND ANKLE-BRACHIAL INDICES CLINICAL HISTORY: Progressive weakness. COMPARISON STUDY: No priors. FINDINGS: Ankle-brachial indices were assessed in ultrasound. Right brachial pressure measures 96 and left brachial pressure measures 114. Pressures in the right posterior tibial artery measure 119 for an ELIAS of 1.04, and pressures in the right dorsalis pedis measure 156 for an ELIAS 1.37. Pressures in t he left posterior tibial artery measure 136 for an ELIAS of 1.19, and pressures in the left dorsalis pe dis measure 135 for an LEIAS of 1.18. IMPRESSION: Ankle-brachial indices as above. Dictated: 01/14/2021 1:49 PM Transcribed: 01/14/2021 2:29 PM Landy [id number] [email or web address] Electronically signed by: Frederick Petersen M.D. 01/14/2021 2:42 PM
--- NOTE | 2021-01-14 18:08 | Magnetic Resonance Report ---
MRI OF THE LUMBAR SPINE WITHOUT IV CONTRAST CLINICAL HISTORY: Acute onset lower extremity weakness. Chronic low back pain. Lower extremity radicu lopathy. COMPARISON STUDY: CT of the lumbar spine dated 01/13/2021. MRI of the lumbar spine dated 04/09/2019. TECHNIQUE: MRI of the lumbar spine is performed utilizing various T1 and T2-weighted sequences in the axial and sagittal planes. IV contrast was not administered for this examination. The examination is degraded by susceptibility artifact from metallic spinal hardware. FINDINGS: Lumbar spine: Vertebral body height is maintained of the lumbar spine. There is minimal retrolisthesi s at L2-L3, as well as anterolisthesis at L3-L4 and L4-L5. There is straightening of the lumbar lordo sis. Anterior and lateral marginal osteophytes are seen throughout. There is postoperative change fro m laminectomy and posterior fusion seen from L2-L5. Intra-articular screws are present at all levels. The transverse processes appear intact. No destructive bony lesion is seen. Chronic degenerative end plate change is noted at L4-L5 and L5-S1. No significant endplate edema is identified. Intervertebral discs: Degenerative disc desiccation is noted. There is moderate to severe loss of hei ght at all lumbar levels, greatest at L4-L5 and L5-S1. Minimal fluid within the L5-S1 disc space is l ikely on a degenerative basis. Spinal cord and central canal: The visualized spinal cord is normal in morphology and signal intensit y. The conus medullaris terminates at the level of L2. The nerve roots of the cauda equina are normal in morphology. There is no spinal canal stenosis. No epidural fluid collection is identified. L1-L2: Unremarkable. L2-L3: There is a small posterior disc osteophyte complex. The central canal is clear. In conjunction with facet arthropathy there is moderate bilateral neural foraminal stenosis. L3-L4: There is broad-based posterior disc bulge. The central canal is clear. In conjunction with fac et arthropathy there is moderate bilateral neural foraminal stenosis. This may impinge on the exiting right L3 nerve root. L4-L5: There is minimal posterior disc bulge. The central canal is clear. In conjunction with facet a rthropathy and anterolisthesis there is severe bilateral neural foraminal stenosis. This may impinge on the exiting bilateral L4 nerve roots. L5-S1: The central canal is clear. Facet arthropathy and osteophytosis contributes to severe bilatera l neural foraminal stenosis. This may impinge on the exiting bilateral L5 nerve roots. Sacrum: The visualized sacrum appears intact. A bone graft donor site is noted in the medial right il ium. Soft tissues: There is fatty atrophy of the paraspinous musculature. Postoperative change is seen thr oughout the operative levels. No fluid collection is identified. A left renal cyst is partially visua lized. The retroperitoneal structures are otherwise grossly unremarkable but incompletely assessed. T he bladder wall appears thickened and trabeculated indicating chronic outlet obstruction. IMPRESSION: 1. Postoperative and spondylotic change as above. See discussion for detailed [id number] analysis . 2. There is no central canal stenosis. 3. No destructive bony process is identified. Dictated: 01/14/2021 5:50 PM Transcribed: 01/14/2021 6:05 PM Marlena [id number] [email or web address] Electronically signed by: Frederick Petersen M.D. 01/14/2021 6:07 PM
[2021-01-14] MEDS: PANTOprazole 40 MG TAB PO SCH (18:10)
[2021-01-14] MEDS ORDERED: KETOROLAC TROMETHAMINE 15 MG/ML VIAL IV PRN (19:02)
--- NOTE | 2021-01-14 19:25 | Billing Data ---
Date of Service January 14, 2021 Coding Level of Care Code 54354 Subseq Obs Care Lvl 3
[2021-01-14] MEDS: ASPIRIN 81 MG ECTAB PO SCH (20:39)
[2021-01-14] MEDS: FOLIC ACID 1 MG TAB PO SCH (20:40)
[2021-01-14] MEDS: INSULIN GLARGINE SOLOSTAR 100 UNITS/ML 3 ML PEN SC SCH (20:44)
[2021-01-15 06:30] LABS: Basophils # (auto) 0.02 K/uL (0-0.2); Basophils % (auto) 0.2 %; Eosinophils # (auto) 0.52 K/uL (0-0.5); Eosinophils % (auto) 5.5 %; Hemoglobin 11.5 g/dL (14.0-18.0); Immature Granulocytes # (auto) 0.22 K/uL (0.00-0.02); Immature Granulocytes % (auto) 2.3 %; Lymphocytes # (auto) 0.74 K/uL (1.2-3.4); Lymphocytes % (auto) 7.9 %; Mean Corpuscular Hemoglobin 30.2 pg (25-34); Mean Corpuscular Hgb Conc 31.9 g/dL (32-36); Mean Corpuscular Volume 94.5 fL (80-100); Mean Platelet Volume 9.1 fL (7.4-10.4); Monocytes # (auto) 0.29 K/uL (0.11-0.59); Monocytes % (auto) 3.1 %; Neutrophils # (auto) 7.62 K/uL (1.4-6.5); Platelet Count 251 K/uL (130-400); RDW Coefficient of Variation 16.3 % (11.5-14.5); RDW Standard Deviation 55.6 fL (36.4-46.3); Red Blood Count 3.81 M/uL (4.7-6.1); White Blood Count 9.41 K/uL (4.8-10.8)
[2021-01-15 07:09] LABS: BUN Creatinine Ratio 24.1 (10-20); Calcium 8.2 mg/dl (8.5-10.1); Est GFR (African American) 59.5 ml/min; Est GFR (Non-African American) 51.3 ml/min; Potassium 4.1 mmol/L (3.5-5.1)
[2021-01-15 07:19] LABS: Estimated Average Glucose 306 mg/dl; Hemoglobin A1C 12.3 % (4.5-5.6)
[2021-01-15] MEDS: METOPROLOL TARTRATE 50 MG TAB PO SCH ×2 (08:08→20:55)
[2021-01-15] MEDS: predniSONE 5 MG TAB PO SCH (08:09)
[2021-01-15] MEDS: FERROUS SULFATE 325 MG TAB PO SCH (08:09)
[2021-01-15] MEDS: OLMESARTAN MEDOXOMIL 20 MG TAB PO SCH (08:09)
[2021-01-15] MEDS: APIXABAN 5 MG TABLET PO SCH ×2 (08:09→20:54)
[2021-01-15] MEDS: CHOLECALCIFEROL 1,000 UNITS 25 MCG TAB PO SCH (08:09)
[2021-01-15] MEDS: INSULIN HUMAN NPH SC SCH (08:31)
[2021-01-15] MEDS: INSULIN ASPART 100 UNITS/ML 3 ML PEN SC SCH ×4 (08:31→20:57)
[2021-01-15] MEDS ORDERED: FUROSEMIDE 20 MG TAB PO SCH (09:00)
--- NOTE | 2021-01-15 09:47 | Hospitalist Progress Note ---
Date of Service January 15, 2021 Assessment & Plan (1) Generalized weakness: 85yo male with a history of lumbar stenosis s/p fusion, chronic low back pain, RA on chronic methotrexate, atrial fibrillation (on ASA and eliquis), CAD s/p CABG, history of [place], poorly-controlled DM2, HTN, HLD, and GERD who presents with a one-month history of progressive weakness, fatigue, and blurry vision. Progressive weakness, fatigue, blurry vision CT head, MRI brain, CXR, chest CT, CT abdomen/pelvis without obvious etiology of symptoms Follow up myasthenia gravis labs, pending Echo (01/14) EF 55-60%, mild diastolic dysfunction Ankle-brachial index results wnl, suggests against claudication MRI lumbar spine most notable for severe bilateral neural foraminal stenosis at L4-L5, L5-S1 PT/OT ordered. Awaiting OT eval and recommendations. Continue to work with PT while admitted to reach goals (including walking 200 ft w/ RW and 4 steps) prior to discharge home. -Held crestor Neurology following. Recommendations including outpatient EMG for further workup if symptoms persist. Continue prednisone 5mg PO qAM DM2 Poorly-controlled BSG in the setting of steroid use Holding home meds Continue ISS Work with PCP after discharge to improve control RA Continue methotrexate 15mg PO qSunday CHF Continue lasix 20mg PO qMWF Atrial fibrillation Currently rate-controlled and in sinus rhythm Continue eliquis 5mg bid, ASA 81mg qhs, and metoprolol tartrate 50mg PO bid HTN Continue metoprolol as above Continue olmesartan CAD, HLD Holding home crestor GERD Continue pantoprazole 40mg PO qPM FEN: DM2, heart healthy diet Code status: conditional (no chest compressions or defibrillation) DVT ppx: eliquis Isolation: none Held home meds: crestor Consults: neurology Dispo: med/surg Admission and Anticipated Discharge Date Admission Date: January 13, 2021 Supervising Physician Co-Signing Physician Notes Resident Physician Supervision Note: I independently interviewed and examined the patient and verified the radford history and physical, reviewed labs and image studies and agree with resident Dr. Alexandre findings and care plan. Subjective Patient seen and evaluated at bedside this morning. No acute events overnight. Per RN, patient having intermittent tachycardia on monitor but per tele mo nitoring, patient mainly in NSR with PAC and PVCs in 80s; patient denies feeling of heart racing or palpitations. Patient does report persistent generalized weakness and fatigue but states that he otherwise overall feels well. He denies CP, SOB, AMIN, abd pain, nausea, vomiting, fever, or chills. Review of Systems Review of Systems: See HPI Physical Exam Physical Exam: GENERAL: No acute distress. Appears stated age. Sitting in chair at bedside. EYES: EOMI. Anicteric sclerae. HENT: Moist mucous membranes. RESPIRATORY: Clear to auscultation bilaterally. No wheezing, rales, or rhonchi. CARDIOVASCULAR: Regular rate and rhythm. No murmurs. ABDOMEN: Soft, non-tender and non-distended. Normal bowel sounds. EXTREMITIES: No edema. Non-tender. SKIN: Warm, dry. NEUROLOGIC: No focal neurological deficits. PSYCHIATRIC: Cooperative. Appropriate mood and affect. Results & Data Results & Data ([facility]) Vital Signs (Past 12 Hours) Vital Signs Temp Pulse Pulse Resp BP BP Pulse Ox 01/15/21 08:28 100 H 20 117/69 94 01/15/21 07:43 37.0 C 97 H 18 131/68 92 01/15/21 07:00 77 01/15/21 04:00 36.9 C 78 18 123/72 94 01/15/21 01:21 83 01/14/21 23:53 36.6 C 88 18 110/67 93 Resident Activity Tracking Resident Involvement: Resident Care Provided Care Provided: Adult [facility]
--- NOTE | 2021-01-15 10:46 | Pharmacy Report ---
Pharmacy Glycemic Short Note 2 - Date of Service January 15, 2021 - Glycemic Short BSG Results (Last 24 hours): 01/14/21 01/14/21 01/14/21 11:32 16:06 16:07 Glucose POC Glucose 186 H 387 H* 369 H* 01/14/21 01/14/21 01/15/21 20:06 20:34 05:57 Glucose 80 POC Glucose 279 H 250 H 01/15/21 07:23 Glucose POC Glucose 104 H OUTPATIENT ANTIDIABETIC REGIMEN: * Glipizide 2.5 mg PO daily * Of note: patient on chronic prednisone 5 mg PO daily * HbA1c ordered and pending ASSESSMENT: 01/15 * Pt has received 53 units of insulin over the past 24hrs * 16 units of basal with Lantus * 37 units of bolus with NovoLog * BSGs [phone] mg/dl * AM fasting BSG slightly below goal range for age/co-morbidities- GLU @ 80mg/dl. Will decrease basal insulin with Lantus * Post-prandial BSGs significantly elevated secondary to prednisone. * NPH insulin is used to counteract the hyperglycemic effect of prednisone. The rationale for this approach is that the pharmacodynamics profile of NPH, with a peak effect of 4-8hrs and duration of action of 12-16hrs, mirrors the pharmacodynamics of prednisone. NPH should be dosed at the same time that prednisone is given * The dose of NPH given is dependent on the steroid dose given * NPH dosing above is given in addition to patients basal insulin needs * Typically, patients will also need rapid-acting insulin with meals 01/14 * NORMA is an 85 year old male admitted on 01/13 with generalized weakness * Patient reports very poor blood sugars over past week - higher doses of prednisone ordered during this time * BSGs in excess of 400 mg/dL on admission - likely steroid-induced hyperglycemia * BSGs corrected overnight with Lantus 20 units and 26 units of bolus insulin * Fasting BSG of 88 mg/dL this morning * Will loosen Novolog and hold off on more basal at this time * Continues on prednisone 5 mg PO daily * Improvement in SCr overnight, 1.31 -> 1.11 mg/dL PLAN FOR INPATIENT GLYCEMIC CONTROL: * Hold outpatient oral diabetes medications * Basal insulin ~ 20-40% reduction * Lantus 10-14 units SC HS (see EHR for details) * Add NPH for steroid induced hyperglycemia * Low dose NPH 13 units (0.2 units/kg) for prednisone * Bolus insulin * NovoLog per scale ACHS or Q6hrs while NPO * Goal Range: Low 110 mg/dL - High 140 mg/dL * Correction Factor: 25 mg/dL/unit * Nutritional / Prandial insulin per carb ratio of 1 unit per 8 grams CHO consumed PLAN FOR DISCHARGE: * A1c = 12.3% on 01/14/21 * This is significantly elevated based on age/co-morbidities. Goal A1c ~ 8% * However, this may be artificially inflated since patient was recently on higher doses of prednsione with BSGs consistently in the 300-400s. * May consider adding a daily dose of NPH at dc for steroid induced hy perglycemia if steroids are continued. * Otherwise, may consider Lantus daily if 24hr insulin coverage needed.
[2021-01-15] MEDS ORDERED: Nursing to Pharmacy Communication SCH (17:45)
[2021-01-15] MEDS: PANTOprazole 40 MG TAB PO SCH (17:54)
[2021-01-15] MEDS: ASPIRIN 81 MG ECTAB PO SCH (20:55)
[2021-01-15] MEDS: FOLIC ACID 1 MG TAB PO SCH (20:55)
[2021-01-15] MEDS: INSULIN GLARGINE SOLOSTAR 100 UNITS/ML 3 ML PEN SC SCH (20:56)
[2021-01-16 06:49] LABS: Hematocrit (blood only) 36.3 % (42-52); Hemoglobin 11.8 g/dL (14.0-18.0); Mean Corpuscular Hemoglobin 30.7 pg (25-34); Mean Corpuscular Hgb Conc 32.5 g/dL (32-36); Mean Corpuscular Volume 94.5 fL (80-100); Mean Platelet Volume 9.3 fL (7.4-10.4); Platelet Count 255 K/uL (130-400); RDW Coefficient of Variation 16.5 % (11.5-14.5); RDW Standard Deviation 56.2 fL (36.4-46.3); Red Blood Count 3.84 M/uL (4.7-6.1); White Blood Count 7.66 K/uL (4.8-10.8)
[2021-01-16 07:15] LABS: BUN Creatinine Ratio 24.5 (10-20); Calcium 8.2 mg/dl (8.5-10.1); Creatinine Clr Calc Pharmacy 40.6 ml/min; Est GFR (African American) 64.4 ml/min; Est GFR (Non-African American) 55.5 ml/min; Potassium 3.8 mmol/L (3.5-5.1)
[2021-01-16] MEDS: INSULIN ASPART 100 UNITS/ML 3 ML PEN SC SCH ×3 (09:21→17:22)
[2021-01-16] MEDS: CHOLECALCIFEROL 1,000 UNITS 25 MCG TAB PO SCH (09:24)
[2021-01-16] MEDS: METOPROLOL TARTRATE 50 MG TAB PO SCH (09:24)
[2021-01-16] MEDS: FERROUS SULFATE 325 MG TAB PO SCH (09:24)
[2021-01-16] MEDS: OLMESARTAN MEDOXOMIL 20 MG TAB PO SCH (09:24)
[2021-01-16] MEDS: predniSONE 5 MG TAB PO SCH (09:24)
[2021-01-16] MEDS: APIXABAN 5 MG TABLET PO SCH (09:24)
[2021-01-16] MEDS: INSULIN HUMAN NPH SC SCH (09:25)
[2021-01-16] MEDS ORDERED: LACTATED RINGER'S 250 ML IV ONE (11:35)
[2021-01-16] MEDS: PANTOprazole 40 MG TAB PO SCH (17:21)
--- NOTE | 2021-01-16 17:40 | Discharge Summary ---
Date of Service January 16, 2021 Admission HPI Per Admitting Provider Kapil Harvey is an 85 year old male who presents to the ER with generalized weakness and muscle aches. This has been progressing for the last 3- 4 weeks. No worse at the end of the day than the start. It is on a background however of prior lumbar spinal stenosis requiring surgery last year. He reports he was cycling on a stationary bike for around 20 minutes a few times a week prior to one month ago but now is having to use a walker to get around. Associated blurring of his eyesight and reduced appetite. He denies any abdominal pain, nausea, vomiting, diarrhea, melena or bright red blood in stool. No loss of eyesight, he has not been to see an continuous pickling line pickler helper for this. He reports his muscle weakness is bilateral and mostly in his proximal muscles in his lower extremities. Also having the occasional headache, he is more short of breath on exertion and dizziness. He went to see his clinical psychology teacher but did not feel this was cardiac related. He saw his front office coordinator who treated him with a Medrol Dosepak followed by course of tapered prednisone from his PCP (ESR was elevated therefore possible PMR was considered. He was seen in the ER previously on December 26 without any significant findings. His PCP did prescribe him doxycycline after this visit as well in case of pneumonia as mild changes noted on CXR. He has not noticed any improvement with these interventions. Due to muscle aches he was taken of Crestor by his clinical psychology teacher on but this also didn't help. He denies any joint current aches although his shoulders have required injections in October due to ongoing RA pains. Aches currently in his muscles with associated thigh muscle loss. He had his second COVID-19 vaccination October 26. No fever, chills, orthopnea, PND, chest pain, abdominal pain, back pain. In the ER CT A/P without contrast, CT head, Lumbar spine CT all unremarkable as a cause of his symptoms. Labs showed a mild leucocytosis. He is hyperglycemic with glucose 493. Admission Exam Per Admitting Provider Constitutional: WD/WN, vitals as above Eyes: PERRL, conjunctivae normal, anicteric sclerae ENMT: external ear and nose normal, oropharynx normal Neck: trachea midline Respiratory: normal respiratory effort, lungs clear to auscultation Cardiovascular: Rate/Rhythm: regular rate and regular rhythm Heart Sounds: no murmur Vessels: no JVD Extremities: normal capillary refill and + pedal edema (1+ ankles only); no calf tenderness Gastrointestinal (Abdomen): normal bowel sounds, soft, nontender, no hepatosplenomegaly Musculoskeletal: Proximal muscle wasting Skin: no rashes, warm and dry Neurologic: CN's II-XI intact bilaterally, moves all extremities, + focal motor deficit (4/5 RLE power with mild foot drop) and awake; not confused Psychiatric: A+Ox3, euthymic affect Genitourinary: no CVA tenderness Principal Diagnosis generalized weakness Discharge Exam GENERAL: Elderly male, appears stated age, in no acute distress. Well developed and well nourished. Vital signs reviewed as above. A/O x3. EYES: EOMI. Anicteric sclerae. HENT: Moist mucous membranes. RESPIRATORY: Clear to auscultation bilaterally. No wheezing, rales, or rhonchi. CARDIOVASCULAR: Regular rate and rhythm. No murmurs. ABDOMEN: Soft, non-tender and non-distended. Normal bowel sounds. EXTREMITIES: No edema. Non-tender. SKIN: Warm, dry. NEUROLOGIC: No focal neurological deficits. CN II-XII grossly intact, but not individually tested. PSYCHIATRIC: Cooperative. Appropriate mood and affect. Discharge Data Allergies Allergy/AdvReac Type Severity Reaction Status Date / Time No Known Allergies Allergy Mild NONE Verified 01/13/21 14:15 Consultations 01/13/21 15:24 ED Decision to Admit Stat 01/13/21 22:17 Consult Neurology Routine Ordered Studies 01/13/21 12:42 CT abd pelvis wo con Stat CT head/brain wo con Stat CT lumbar spine wo con Stat 01/13/21 17:01 MR brain wo/w con Urgent 01/14/21 07:10 CT abd pelvis IV con only Routine CT chest diagnostic w con Routine 01/14/21 12:14 US ankle/brachial index comp Routine 01/14/21 16:23 MR lumbar spine wo con Routine Diabetes Follow up Diabetes Follow-up Needed for HgbA1c >9% Hospital Course (1) Generalized weakness: 85yo male with a history of lumbar stenosis s/p fusion, chronic low back pain, RA on chronic methotrexate, atrial fibrillation (on ASA and eliquis), CAD s/p CABG, history of [place], poorly-controlled DM2, HTN, HLD, and GERD who presents with a one-month history of progressive weakness, fatigue, and blurry vision. Progressive weakness, fatigue, blurry vision CT head, MRI brain, CXR, chest CT, CT abdomen/pelvis without obvious etiology of symptoms Follow up myasthenia gravis labs, pending Echo (01/14) EF 55-60%, mild diastolic dysfunction Ankle-brachial index results wnl, suggests against claudication MRI lumbar spine most notable for severe bilateral neural foraminal stenosis at L4-L5, L5-S1 Neurology consulted. Recommendations including outpatient EMG for further workup if symptoms persist. PT/OT evaluated patient. Cleared by OT with recommendations for home therapy and shower chair. PT also recommended home therapy. Crestor discontinued. Anemia Hgb stable but low around 11 throughout stay Recommend repeat CBC as outpatient Consider iron studies; patient is on supplemental iron po daily DM2 Poorly-controlled BSG in the setting of steroid use Home meds held during admission and continued with ISS. Patient evaluated by perinatology physician during hospitalization. On discharge, patient restarted on home glipizide and also started on basal insulin glargine 14 u subQ daily. Education re: checking BGs. Work with PCP after discharge to improve control RA Continue methotrexate 15mg PO qSunday Continue prednisone 5mg PO qAM CHF Continue lasix 20mg PO qMWF Atrial fibrillation Rate-controlled and in sinus rhythm throughout admission Continue eliquis 5mg bid, ASA 81mg qhs, and metoprolol tartrate 50mg PO bid HTN Continue home metoprolol and olmesartan Amlodipine discontinued. CAD, HLD Home crestor discontinued. Re-evaluate as outpatient GERD Continue home pantoprazole 40mg PO qPM FEN: DM2, heart healthy diet Code status: conditional (no chest compressions or defibrillation) Held home meds: crestor Dispo: home w/ home health PT and family support Total Time Total Time Spent Total Time Spent (In Minutes): See attending attestation Discharge Plan Discharge Items Patient Disposition: Home - Home Health Services Reason For Visit: GENERALIZED WEAKNESS Discharge Diagnosis: generalized weakness Condition on Discharge: Good Activity: Resume your previous activity Non-emergency contact: Primary Care Provider Call non-emergency contact if: you have any medication questions Follow-up/Referrals: Carlos Kraft, [Primary Care Provider] - Marni Alexandre, DO [Resident] - Diet: Carb Consistent or DM2 Addtl Attending Provider Instructions: It was our pleasure to care for you at [facility]. You were admitted for weakness, muscle aches, and fatigue. You have done well and at this point we feel that it is safe for you to be discharged home. Please continue to work on your strength. You should follow up with home physical therapy. As we discussed, it has been recommended that you get a shower chair. Additionally, your diabetes medication regimen has been adjusted and a new medication, glargine (insulin) has been added to your regimen. This is a basal insulin, sometimes referred to a "background insulin" that your body absorbs slowly throughout the day. Please monitor your blood sugar levels as you discussed with our diabetes education nurse. I have also sent prescriptions for the blood sugar testing kit and supplies. All prescriptions were sent electronically to [facility]. Please follow up with Dr. Alexandre on 01/23/21 at the [facility] (where your PCP, Dr. Kraft, is located). Please call us with any questions or concerns. Return to the ED or call 911 if you have worsening weakness, dizziness, lightheadedness, confusion, chest pain, or shortness of breath. Pending Studies at Discharge: No Stand-Alone Forms: My [facility] [employer], Smoking Cessation Medications and DC Order Prescriptions: New nystatin 100,000 unit/gram Ointment 1 applic EXT TID 10 Days Qty: 15 RF: 0 Lantus Solostar U-100 Insulin 100 unit/mL (3 mL) Insulin Pen 14 unit SC HS 30 Days Qty: 4.2 RF: 0 (DME) blood-glucose meter [FreeStyle [place] Lite] Kit See Rx Instructions .ROUTE .MEDSUPPLY Qty: 1 RF: 0 (DME) FreeStyle Lite Strips Strip See Rx Instructions .ROUTE .MEDSUPPLY Qty: 100 RF: 0 (DME) lancets [FreeStyle Lancets] 28 gauge misc See Rx Instructions .ROUTE .MEDSUPPLY Qty: 100 RF: 0 (DME) pen needle, diabetic 32 gauge x 5/32" needle See Rx Instructions .ROUTE .MEDSUPPLY Qty: 100 RF: 0 Continued apixaban [Eliquis] 5 mg tablet 5 mg PO BID RF: 0 glipizide 5 mg tablet 2.5 mg PO QAM RF: 0 prednisone 5 mg Tablet 5 mg PO QAM RF: 0 aspirin 81 mg Tablet,Delayed Release (Dr/Ec) 81 mg PO HS RF: 0 methotrexate sodium 2.5 mg Tablet 15 mg PO WK RF: 0 folic acid 1 mg Tablet 1 mg PO QPM RF: 0 B-complex with vitamin C [Super B Complex-Vitamin C] Tablet 1 tab PO QAM RF: 0 olmesartan 40 mg tablet 20 mg PO QAM RF: 0 coenzyme Q10 [CoQ-10] 100 mg Capsule 100 mg PO QPM RF: 0 cholecalciferol (vitamin D3) [Vitamin D3] 1,000 unit Tablet 1,000 unit PO QAM RF: 0 metoprolol tartrate [Lopressor] 50 mg tablet 50 mg PO BID RF: 0 pantoprazole [Protonix] 40 mg Tablet,Delayed Release (Dr/Ec) 40 mg PO QPM RF: 0 furosemide [Lasix] 20 mg Tablet 20 mg PO QAM RF: 0 PreserVision AREDS-2 250-90-40-1 mg Capsule 1 tab PO BID RF: 0 ferrous sulfate 143 mg (45 mg iron) Tablet Extended Release 143 mg PO DAILY RF: 0 Discontinued amlodipine [Norvasc] 2.5 mg Tablet 5 mg PO QAM RF: 0 rosuvastatin [Crestor] 10 mg Tablet 10 mg PO QPM RF: 0 Discharge Orders: Discharge Order (Routine); Ordered 01/16/21 Ordered By: Marni Alexandre Admission Data Admit Date/Time: 01/15/21 16:23 Attending Provider: Suzanne Cha Admit Provider: Alejandro Martinez Primary Care Provider: Carlos Kraft Other Providers: Alejandro Martinez ; Jesusita Pimentel ; Jeronimo Kamara ; [facility] F[facility] Other Interventions: Discharge Summary Assessment (RN) Last Done: 01/16/21 18:11 Supervising Physician Co-Signing Physician Notes Resident Physician Supervision Note: I independently interviewed and examined the patient and verified the radford history and physical, reviewed labs and image studies and agree with resident Dr. Alexandre findings and care plan. Resident Activity Tracking Resident Involvement: Resident Care Provided Care Provided: Adult Hospital Medicine
[2021-01-16] MEDS ORDERED: NYSTATIN OINT 15 GM TUBE EXT SCH (21:00)
[2021-01-16] MEDS ORDERED: INSULIN GLARGINE SOLOSTAR 100 UNITS/ML 3 ML PEN SC SCH (21:00)
[2021-01-22 14:14] LABS: Anti-Striated Muscle NEGATIVE (NEGATIVE); Receptor Binding Ab 0.95 nmol/L
== END 2021-01-16 18:30 | disposition home health service (06) ==
LOC: ED 12:13 → 2N 12:13 → SUATTDRO 16:49 → 2N 17:18 → SUATTDRO 01-15 16:23
DX: E78.5 Hyperlipidemia, unspecified; D64.9 Anemia, unspecified; E11.65 Type 2 diabetes mellitus with hyperglycemia; I50.9 Heart failure, unspecified; Z98.1 Arthrodesis status; Z79.899 Other long term (current) drug therapy; I11.0 Hypertensive heart disease with heart failure; R74.8 Abnormal levels of other serum enzymes; I48.0 Paroxysmal atrial fibrillation; M06.9 Rheumatoid arthritis, unspecified; Z95.5 Presence of coronary angioplasty implant and graft; I25.10 Atherosclerotic heart disease of native coronary artery without angina pectoris; Z20.822 Contact with and (suspected) exposure to COVID-19; G47.30 Sleep apnea, unspecified; Z79.01 Long term (current) use of anticoagulants; I25.2 Old myocardial infarction; Z79.82 Long term (current) use of aspirin; N40.1 Benign prostatic hyperplasia with lower urinary tract symptoms; Z79.84 Long term (current) use of oral hypoglycemic drugs; R73.9 Hyperglycemia, unspecified; R53.1 Weakness; Z87.891 Personal history of nicotine dependence; K21.9 Gastro-esophageal reflux disease without esophagitis

== ENCOUNTER 2022-02-22 08:20 | Observation (INO) ==
--- NOTE | 2021-12-21 11:06 | PAT Medication Instructions ---
Medication Instructions Date of Service December 21, 2021 Home Medications Medication Instructions Recorded blood sugar diagnostic (FreeStyle #100 ea 01/16/21 Lite Strips) blood-glucose meter (FreeStyle #1 ea 01/16/21 [place] Lite) lancets 28 gauge (FreeStyle #100 ea 01/16/21 Lancets) pen needle, diabetic 32 gauge x #100 ea 01/16/21" B-complex with vitamin C (Super B Complex-Vitamin C) 1 tab PO QAM cholecalciferol (vitamin D3) 25 mcg (1,000 unit) tablet (Vitamin D3) 2,000 unit PO QAM coenzyme Q10 100 mg capsule (CoQ-10) 100 mg PO QPM folic acid 1 mg tablet 1 mg PO QPM methotrexate sodium 2.5 mg tablet 15 mg PO WK prednisone 5 mg tablet 5 mg PO QAM apixaban 5 mg tablet (Eliquis) 5 mg PO BID pantoprazole 40 mg tablet,delayed release (Protonix) 40 mg PO QPM vit C 250 mg-vit E 90 mg-zinc 40 mg-copper 1 [id number] capsule (PreserVision AREDS-2) 1 tab PO BID ferrous sulfate 143 mg (45 mg iron) tablet,extended release 143 mg PO QPM metoprolol succinate 25 mg tablet,extended release 24 hr 25 mg PO QPM cetirizine 10 mg capsule (Allergy Relief (cetirizine)) 10 mg PO QPM empagliflozin 10 mg tablet (Jardiance) 25 mg PO QAM fluticasone propionate 50 mcg/actuation nasal spray,suspension 2 spray INTRANASAL DAILY PRN naproxen sodium 220 mg capsule (Aleve) 220 mg PO BID PRN olmesartan 20 mg tablet 5 mg PO QPM rosuvastatin 10 mg tablet (Crestor) 10 mg PO QPM ASK your surgeon for instructions naproxen sodium 220 mg capsule (Aleve) 220 mg PO BID PRN ASK your prescriber and surgeon methotrexate sodium 2.5 mg tablet 15 mg PO WK apixaban 5 mg tablet (Eliquis) 5 mg PO BID STOP taking 2 weeks before surgery coenzyme Q10 100 mg capsule (CoQ-10) 100 mg PO QPM vit C 250 mg-vit E 90 mg-zinc 40 mg-copper 1 [id number]-[id number] capsule (PreserVision AREDS-2) 1 tab PO BID DO NOT take the morning of surgery B-complex with vitamin C (Super B Complex-Vitamin C) 1 tab PO QAM cholecalciferol (vitamin D3) 25 mcg (1,000 unit) tablet (Vitamin D3) 2,000 unit PO QAM empagliflozin 10 mg tablet (Jardiance) 25 mg PO QAM Take morning of surgery With a small sip of water, OTHERWISE NOTHING TO EAT OR DRINK AFTER MIDNIGHT: prednisone 5 mg tablet 5 mg PO QAM fluticasone propionate 50 mcg/actuation nasal spray,suspension 2 spray INTRANASAL DAILY PRN (if needed) Take evening before surgery folic acid 1 mg tablet 1 mg PO QPM pantoprazole 40 mg tablet,delayed release (Protonix) 40 mg PO QPM ferrous sulfate 143 mg (45 mg iron) tablet,extended release 143 mg PO QPM metoprolol succinate 25 mg tablet,extended release 24 hr 25 mg PO QPM cetirizine 10 mg capsule (Allergy Relief (cetirizine)) 10 mg PO QPM fluticasone propionate 50 mcg/actuation nasal spray,suspension 2 spray INTRANASAL DAILY PRN (if needed) olmesartan 20 mg tablet 5 mg PO QPM rosuvastatin 10 mg tablet (Crestor) 10 mg PO QPM Other Notes If you have any questions please call us at [phone] or [phone] or [phone] or [phone]
--- NOTE | 2021-12-26 10:32 | Anesthesiology Consultation ---
Date of Service December 26, 2021 Assessment & Plan (1) Encounter for pre-operative examination: - check BSG am DOS. - awaiting cardiology pre-op appt 01/07 per pt and daughter. Will also request any available carotid studies. - COVID screening: Per assessment on 12/26/2021: Travel screen negative, no known COVID-19 positive contacts or current COVID-19 related symptoms in past 2 weeks. Patient vaccinated. Surgeon arranging preop COVID testing, scheduled 01/17/2022. Awaiting results. Chart Review Chart Review: Pending: Refer to Additional Notes / Consult section and Patient seen in Pre Admission Testing Teaching & Discussion Pre-Anesthesia Teaching/Discussion Notes: Instructed NPO after midnight before surgery, except medications with 15 cc of water. Medication instructions provided according to the PAT guidelines. History Surgery Operation Date: 01/21/22 10:40 Proposed Procedures p Right Total Shoulder Arthroplasty Reverse - Gagan Monson, DO Height/Weight Height: 5 ft 7 in Weight: 68.9 kg Allergies Allergy/AdvReac Type Severity Reaction Status Date / Time No Known Allergies Allergy Mild NONE Verified 12/21/21 10:11 Medications Home Medications Medication Instructions Recorded Confirmed Last Taken B-complex with vitamin C (Super B 1 tab PO QAM 08/07/18 12/21/21 01/13/21 Complex-Vitamin C) aspirin 81 mg tablet,delayed 81 mg PO QPM 08/07/18 12/21/21 01/12/21 release cholecalciferol (vitamin D3) 25 2,000 unit PO QAM 08/07/18 12/21/21 01/13/21 mcg (1,000 unit) tablet (Vitamin D3) coenzyme Q10 100 mg capsule 100 mg PO QPM 08/07/18 12/21/21 01/12/21 (CoQ-10) folic acid 1 mg tablet 1 mg PO QPM 08/07/18 12/21/21 01/12/21 methotrexate sodium 2.5 mg tablet 15 mg PO WK 08/07/18 12/21/21 01/13/21 prednisone 5 mg tablet 5 mg PO QAM 08/07/18 12/21/21 01/13/21 apixaban 5 mg tablet (Eliquis) 5 mg PO BID tab 09/04/18 12/21/21 01/13/21 pantoprazole 40 mg tablet,delayed 40 mg PO QPM 10/24/20 12/21/21 01/12/21 release (Protonix) vit C 250 mg-vit E 90 mg-zinc 40 1 tab PO BID 10/24/20 12/21/21 01/13/21 mg-copper 1 gs-odqwus-rexatz capsule (PreserVision AREDS-2) ferrous sulfate 143 mg (45 mg 143 mg PO QPM 01/13/21 12/21/21 01/13/21 iron) tablet,extended release blood sugar diagnostic (FreeStyle #100 ea 01/16/21 07/09/21 Unknown Lite Strips) blood-glucose meter (FreeStyle #1 ea 01/16/21 07/09/21 Unknown [place] Lite) lancets 28 gauge (FreeStyle #100 ea 01/16/21 07/09/21 Unknown Lancets) pen needle, diabetic 32 gauge x #100 ea 01/16/21 07/09/21 Unknown " metoprolol succinate 25 mg 25 mg PO QPM 08/08/21 12/21/21 Unknown tablet,extended release 24 hr cetirizine 10 mg capsule (Allergy 10 mg PO QPM 12/21/21 12/21/21 Unknown Relief (cetirizine)) empagliflozin 10 mg tablet 25 mg PO QAM 12/21/21 12/21/21 Unknown (Jardiance) fluticasone propionate 50 2 spray INTRANASAL DAILY PRN 12/21/21 12/21/21 Unknown mcg/actuation nasal spray,suspension naproxen sodium 220 mg capsule 220 mg PO BID PRN 12/21/21 12/21/21 Unknown (Aleve) olmesartan 20 mg tablet 5 mg PO QPM 12/21/21 12/21/21 Unknown rosuvastatin 10 mg tablet (Crestor) 10 mg PO QPM 12/21/21 12/21/21 Unknown Past Medical History Medical History (Updated 12/26/21 @ 11:32 by Ellie Fisher PA-C) A-fib PAROXYSMAL; ON APIXABAN-F/U DR MARLEE SOLIMAN Asymptomatic carotid artery stenosis Benign prostatic hyperplasia with urinary obstruction HX CAD (coronary artery disease) S/P CABG X 3 (2006) Chronic back pain GERD (gastroesophageal reflux disease) Hyperlipidemia Hypertension Myocardial Infarction S/P CABG X 3 (2006) Myofascial pain Osteoarthritis, shoulder Rheumatoid arthritis Sleep apnea DEVICE RECOMMENED - PT COULDN'T TOLERATE, DOES NOT USE Type 2 diabetes mellitus NIDDM Vertigo Patient denies h/o stroke, seizures, heart failure, or blood clots. Exercise / Class Metabolic Activity II 4-5 Yardwork/Stairs/Walk up hill (denies CP or SOB with 15 steps, rides stationary bike at least 2x/day) Past Family History Family History Sister Family history of diabetes mellitus Cancer Father Hypertension Past Surgical History Surgical History (Updated 12/26/21 @ 10:36 by Ellie Fisher PA-C) H/O repair of left rotator cuff X 2 H/O repair of right rotator cuff History of cardiac cath 2006 ...[place], NO STENT(S) ...CABG History of cataract extraction BILAT History of cholecystectomy History of colonoscopy History of elbow surgery R/L History of esophagogastroduodenoscopy (EGD) History of tooth extraction Hx of CABG S/P CABG X 3 (2006) Nausea and vomiting after administration of anesthetic agent WITH cholecystectomy S/P left knee arthroscopy HX Status post lumbar spinal fusion L2-5 posterior decompression and fusion August 2019 Dr. Perez Past Anesthesia History No Hx of Anesthesia Complications and No Family Hx of Anesthesia Complications History of PONV No Hx of PONV and Hx of Motion Sickness Social History Smoking Status: Former smoker tobacco type: cigarettes Do You Dip or Chew Tobacco: No Smoking End Date: QUIT 25 + YRS AGO Hx Alcohol Use: No Hx Substance Use: No substance use type: does not use Review of Systems Patient denies chest pain, shortness of breath, dyspnea on exertion, fever, chills, cough, wheezing, or palpitations. Physical Exam Vital Signs Vitals BP 135/76 P 70 TEMP 98.1 SP02 95% on RA RESP 17 Physical Full cervical extension range of motion without pain TMD 3.5 finger breaths Mallampati Score 3 Dentition: intact, full upper denture, potential caps/crowns per pt-none in front; denies chipped or loose teeth, implants or bridges Lungs: normal respiratory effort. Clear throughout to auscultation, no adventitious breath sounds Cardiac: regular rate and rhythm, no murmurs noted Carotid arteries: negative bruit bilat Lab Results Anesthesia Preop Results Results Anesthesia Widget: WBC 8.49 K/uL (4.8-10.8) 12/26/21 Hgb 13.3 g/dL (14.0-18.0) L 12/26/21 Hct 41.9 % (42-52) L 12/26/21 Plt 196 K/uL (130-400) 12/26/21 Na 137 mmol/L (136-145) 12/26/21 K 4.4 mmol/L (3.5-5.1) 12/26/21 Cl 101 mmol/L (98-107) 12/26/21 CO2 32 mmol/L (21-32) 12/26/21 BUN 21 mg/dl (6-23) 12/26/21 Creat 1.22 mg/dl (0.6-1.4) 12/26/21 Glucose Level 171 mg/dl (70-99(Fasting)) H 12/26/21 PT 11.3 Seconds (9.0-12.0) 12/26/21 PTT 28.2 Seconds (21.0-31.0) 12/26/21 INR 1.1 (0.9-1.1) 12/26/21 HA1c 8.4 % (4.5-5.6) H 12/26/21 Blood Type O Negative 12/26/21 Antibody Screen NEGATIVE 12/26/21 Testing Laboratory Results Shantelle with surgeon's office made aware of elevated A1c. Electrocardiogram Date: 12/26/21 NSR, rate 73 bpm Incomplete RBBB Chest X-Ray Date: 12/26/21 The cardiac silhouette is enlarged. Prior median sternotomy with CABG. Emphysema with chronic interstitial coarsening. Linear bibasilar atelectasis/scarring. There is no pneumothorax, pleural effusion, airspace consolidation or overt pulmonary edema. Partially imaged lumbar spinal fusion hardware. Degenerative changes of the shoulders and spine. Cholecystectomy. IMPRESSION: Emphysema without acute process. Echocardiogram Date: 01/14/21 EF 55-60% Mild cLVH Normal LV wall motion Moderate mitral regurgitation Mild pulmonic valvular regurgitation Mild aortic valve sclerosis without significant stenosis Grade II diastolic dysfunction
--- NOTE | 2022-02-21 07:32 | History & Physical Report ---
Date of Service February 21, 2022 Assessment & Plan (1) Rotator cuff tear arthropathy of right shoulder: We will proceed with a right reverse shoulder arthroplasty. Postoperatively he will be placed in a sling and kept overnight for postoperative medical management. He plans to use energy physical therapy upon discharge. History of Present Illness Chief Complaint: Cuff tear arthropathy of the right shoulder . Primary Care Provider: Carlos KraftDO Dick is a pleasant 86-year-old male who has had a year long history of inc reasing right shoulder pain and decreased range of motion. X-rays have been diagnostic for advanced osteoarthritis of the right shoulder. He has a history of rotator cuff repair done about 5 to 6 years ago. He initially did well, but his symptoms have declined. After failing extensive conservative treatment, he haselected to proceed with a right reverse shoulder arthroplasty.. Allergies Allergy/AdvReac Type Severity Reaction Status Date / Time No Known Allergies Allergy Mild NONE Verified 02/20/22 12:48 Home Medications Medication Instructions Recorded Confirmed Type B-complex with vitamin C (Super B 1 tab PO QAM 08/07/18 02/20/22 History Complex-Vitamin C) aspirin 81 mg tablet,delayed 81 mg PO QPM 08/07/18 02/20/22 History release cholecalciferol (vitamin D3) 25 2,000 unit PO QAM 08/07/18 02/20/22 History mcg (1,000 unit) tablet (Vitamin D3) coenzyme Q10 100 mg capsule 100 mg PO QPM 08/07/18 02/20/22 History (CoQ-10) folic acid 1 mg tablet 1 mg PO QPM 08/07/18 02/20/22 History methotrexate sodium 2.5 mg tablet 15 mg PO WK 08/07/18 02/20/22 History prednisone 5 mg tablet 5 mg PO QAM 08/07/18 02/20/22 History apixaban 5 mg tablet (Eliquis) 5 mg PO BID tab 09/04/18 02/20/22 History pantoprazole 40 mg tablet,delayed 40 mg PO QPM 10/24/20 02/20/22 History release (Protonix) vit C 250 mg-vit E 90 mg-zinc 40 1 tab PO BID 10/24/20 02/20/22 History mg-copper 1 am-srqjva-yhpgph capsule (PreserVision AREDS-2) ferrous sulfate 143 mg (45 mg 143 mg PO QPM 05/29/21 07/06/22 History iron) tablet,extended release blood sugar diagnostic (FreeStyle #100 ea 01/16/21 07/09/21 Rx Lite Strips) blood-glucose meter (FreeStyle #1 ea 01/16/21 07/09/21 Rx [place] Lite) lancets 28 gauge (FreeStyle #100 ea 01/16/21 07/09/21 Rx Lancets) pen needle, diabetic 32 gauge x #100 ea 01/16/21 07/09/21 Rx /32" metoprolol succinate 25 mg 25 mg PO QPM 08/08/21 02/20/22 History tablet,extended release 24 hr cetirizine 10 mg capsule (Allergy 10 mg PO QPM 12/21/21 02/20/22 History Relief (cetirizine)) empagliflozin 10 mg tablet 25 mg PO QAM 12/21/21 02/20/22 History (Jardiance) fluticasone propionate 50 2 spray INTRANASAL DAILY PRN 12/21/21 02/20/22 History mcg/actuation nasal spray,suspension naproxen sodium 220 mg capsule 220 mg PO BID PRN 12/21/21 02/20/22 History (Aleve) olmesartan 20 mg tablet 5 mg PO QPM 12/21/21 02/20/22 History rosuvastatin 10 mg tablet (Crestor) 10 mg PO QPM 12/21/21 02/20/22 History Past Med/Surg History Medical History A-fib PAROXYSMAL; ON APIXABAN-F/U DR MARLEE SOLIMAN Asymptomatic carotid artery stenosis no hemodynamically significant carotid artery stenosis 03/2021 carotid doppler Benign prostatic hyperplasia with urinary obstruction HX CAD (coronary artery disease) S/P CABG X 3 (2006) Chronic back pain GERD (gastroesophageal reflux disease) Heart failure follows with PS cardio, EF 55-60%, Grade II diastolic dysfunction History of COVID-19 tested positive 01/17/22 at [facility]. no hospitalization. weakness, fatigue, fever, nasal congestion and sore throat. -- since resolved. Hyperlipidemia Hypertension Myocardial Infarction S/P CABG X 3 (2006) Myofascial pain Osteoarthritis, shoulder Rheumatoid arthritis Sleep apnea DEVICE RECOMMENED - PT COULDN'T TOLERATE, DOES NOT USE Type 2 diabetes mellitus NIDDM Vertigo Surgical History H/O repair of left rotator cuff X 2 H/O repair of right rotator cuff History of cardiac cath 2006 ...[place], NO STENT(S) ...CABG History of cataract extraction BILAT History of cholecystectomy History of colonoscopy History of elbow surgery R/L History of esophagogastroduodenoscopy (EGD) History of tooth extraction Hx of CABG S/P CABG X 3 (2006) Nausea and vomiting after administration of anesthetic agent WITH cholecystectomy S/P left knee arthroscopy HX Status post lumbar spinal fusion L2-5 posterior decompression and fusion August 2019 Dr. Perez Family History Sister Family history of diabetes mellitus Cancer Father Hypertension Social History Smoking Status: Former smoker Second Hand Exposure: No; Hx Alcohol Use: No Hx Substance Use: No Preferred Language: [place] Leone[place] Communication Ability: Effective Visual Impairment: Limited Hearing Ability: Normal Tutor Coordinator Required: No Beliefs That Will Affect Care: None marital status: Current Living Situation: Spouse current occupational status: retired Feels Safe at Home: Yes Assistive Devices: Denture - Upper and Glasses Review of Systems All systems reviewed & are unremarkable except as noted in HPI & below. Physical Exam On physical examination of right shoulder, he has about 100 degrees of forward elevation 90 degrees of abduction. He has 4 out of 5 motor strength throughout. . Constitutional WD/WN, vitals as above Eyes PERRL, conjunctivae normal, anicteric sclerae ENMT external ear and nose normal, oropharynx normal Neck trachea midline, no thyromegaly Respiratory normal respiratory effort Cardiovascular RRR, no murmur, no edema Gastrointestinal (Abdomen) normal bowel sounds, soft, nontender, no hepatosplenomegaly Psychiatric A+Ox3, euthymic affect Results & Data Results & Data Laboratory Results . Diagnostic Findings X-rays of the right shoulder show advanced osteoarthritis with joint space narrowing osteophyte formation and uqod-va-gkwm articulation. . PG Care Time/CCT Total # of Minutes Spent Total Time Spent with Patient: Total time spent is greater than 50% in coordination of care (as documented) at patient's floor/unit and/or counseling patient: Coding Level of Care Code None Diagnoses Rotator cuff tear arthropathy of right shoulder M75.101; M12.811
[~2022-02-22 08:20] MED LIST changes: +ACETAMINOPHEN 500 MG TAB PO SCH; -AMLO2.5T PO; -ASPEC81 PO; -B-CO1CAP5 PO; +BUPIVACAINE 0.5 % 5 MG/1 ML PF 10ML VIAL ONE; -CHOL1000 PO; -COQ10100 PO; -DEXAMETHASONE SOD INJ 4 MG/ML VIAL ONE; +FAMOTIDINE 20 MG TAB PO SCH; -FLV1 PO; +GABAPENTIN 300 MG CAP PO SCH; -GLC/500 PO; +Ketorolac (*for OR use only*) 30 MG, dexAMETHasone 4 MG, KETAMINE HCL (**OR use only) 1... INFIL SCH; -LIDOCAINE HCL 1% MPF 5 ML VIAL ONE; -LOSA1TAB38 PO; +LR 60ML/HR IV SCH; -METH2.5T PO; -METO25TA56 PO; -OMEG10007 PO; -PRED-301 PO; -PRT/20 PO; -ROSU5TAB PO; +TRANEXAMIC ACID 1,000 MG **IV Intra-op IV SCH; +TRANEXAMIC ACID 1,000 MG **IV Pre-op IV SCH; +ceFAZolin 1000MG 1,000 MG/7.5 ML SYR IV SCH; +dexAMETHasone 4 MG TAB PO SCH
--- NOTE | 2022-02-22 09:11 | History & Physical Bridge Note ---
Date of Service February 22, 2022 History & Physical Bridge Note I have examined the patient, reviewed the History & Physical and in the interval since the performance of the History & Physical I have noted the following changes of clinical significance: no changes noted
[2022-02-22] MEDS ORDERED: fentaNYL citrate 100 MCG/2 ML VIAL IV PRN (09:26)
[2022-02-22] MEDS ORDERED: ONDANSETRON INJ 2 MG/ML 2 ML VIAL IV PRN ×2 (09:26→13:00)
[2022-02-22] MEDS ORDERED: ATROPINE SULFATE 0.1 MG/ML 10ML SYR IV PRN (09:26)
[2022-02-22] MEDS ORDERED: ePHEDrine sulfate 50 MG/ML AMP IV PRN (09:26)
[2022-02-22] MEDS ORDERED: ORTHO JOINT ANESTHETIC ONE (09:42)
[2022-02-22] MEDS ORDERED: DEXAMETHASONE SOD INJ 4 MG/ML VIAL ONE (09:43)
[2022-02-22] MEDS ORDERED: LIDOCAINE 2% 2 ML VIAL/AMP(20MG/ML) INFIL ONE (09:43)
[2022-02-22] MEDS ORDERED: fentaNYL citrate 100 MCG/2 ML VIAL ONE (09:43)
[2022-02-22] MEDS ORDERED: PROPOFOL IV EMULSION 10 MG/ML 20 ML VIAL IV ONE (09:43)
[2022-02-22] MEDS ORDERED: ROCURONIUM BROMIDE 10 MG/ML 5 ML VIAL IV ONE (09:43)
[2022-02-22] MEDS ORDERED: ONDANSETRON INJ 2 MG/ML 2 ML VIAL ONE (10:45)
[2022-02-22] MEDS ORDERED: ePHEDrine sulfate 50 MG/ML AMP ONE (11:06)
--- NOTE | 2022-02-22 11:40 | Operative Report ---
PG Post Operative Report Pre & Post Diagnosis Operation Date: 02/22/22 10:30 Pre-Op Diagnosis: Rgiht Shoulder cuff tear arthropathy with tendinopathy long head of the biceps tendon Post-Op Diagnosis: Rgiht Shoulder cuff tear arthropathy with tendinopathy long head of the biceps tendon I identified the patient and participated in the time-out.: Yes Procedure Operation Date: 02/22/22 10:30 Actual Procedures p Right Total Shoulder Arthroplasty Reverse(Right) with open biceps tenodesis as a distinct and separate procedure (modifier 59)- Gagan Monson DO Surgeon Gagan Monson DO Data Management Specialist Gagan Ray PAC Estimated Blood Loss 150 Findings Consistent with Post-Op Diagnosis Specimens Right humeral head Complications none Disposition Disposition: Recovery Room Description of Procedure A CPT code modifier 59: The long head of the biceps tendon was enlarged and inflamed consistent with tendinopathy. A tenodesis was opted. This was a separate and distinct portion of the procedure. For these reasons, a CPT code modifier 59 will be added to this case. Implants used: I used a [employer]omet Comprehensive reverse total shoulder arthroplasty system with a size 15 press fit micro humeral stem, a standard humeral tray and a +3 retentive humeral bearing, a 25 mm medium augment baseplate with a 6.5 mm central screw and superior and inferior locking screws, and a size 40 mm eccentric glenosphere. Kapil arrived at [facility] for the above procedure. He was seen in the preoperative holding area and the operative extremity was identified and signed. He was given a preoperative antibiotic, TXA, and an interscalene nerve block. He was taken back to the operating room, laid on table in supine position, and put under general anesthesia. He was then put into the beachchair position. The shoulder was then prepped and draped in sterile fashion. A timeout was done and the patient and the operative extremity was properly identified. A deltopectoral approach was used. Dissection was taken down through the fascia and the deltoid was retracted laterally and the conjoined tendon was retracted medially. The anterior shoulder was exposed. The biceps groove was opened up and the biceps tendon was examined extensively. The biceps tendon demonstrated enlargement and inflammatory changes consistent with longstanding inflammation in the context of osteoarthritis and cuff arthropathy. The long head of the biceps tendon was then tenodesed to the upper border of the pectoralis major. This was a separate and distinct portion of the procedure. The subscapularis was then directly released off the lesser tuberosity with a peel technique. The inferior capsule was released and the humeral head was dislocated. A canal finding reamer was sent down the center of the humeral canal. Sequenti al reaming up to a size 15 reamer was done. Off that reamer, a proximal humeral resection guide was placed. The proximal humerus was resected at 135 of inclination and 25 of retroversion. Osteophytes were then removed and the glenoid was exposed. Time was spent doing a complete capsular and labral release. The glenoid guide was then placed in the inferior aspect of the glenoid. A 3.2 mm Steinmann pin was then placed into the glenoid vault at 10 of inclination. The glenoid baseplate was then reamed. The final size 25 mm medium augment baseplate was then impacted in the place. A 6.5 mm central screw was then placed followed by superior and inferior locking screws. A 40 mm eccentric glenosphere was then impacted into place. Surrounding soft tissues were then injected with 100 cc an orthopedic pain control cocktail. The proximal humerus was then exposed. Sequential broaching of the humerus up to a size 15 broach was done. Off that broach a +3 retentive humeral tray was trialed. The shoulder was then reduced, brought through a full range of motion, and felt to be stable. The shoulder was then dislocated and the broach was removed. The final size 15 micro press-fit humeral stem was then impacted into place. A +3 retentive humeral bearing was then snapped onto a standard humeral tray. The humeral tray was then impacted onto the humeral stem. The shoulder was once again reduced, brought through a full range of motion, and felt to be stable. The subscapularis was then tenodesed back to the lesser tuberosity with transosseous FiberWire sutures and side to side sutures with the arm in 45 of external rotation. A dilute betadyne lavage was then done for 3 minutes. The joint was then irrigated with normal saline solution. Hemostasis was obtained. The interval was closed with 2-0 Vicryl suture. The skin was then closed with 2-0 Vicryl and lelo. A Silverlon dressing was placed and the arm was rested in a regular arm sling. He was then extubated and transferred to a hospital bed. He taken to the postanesthesia care unit in stable condition. He tolerated the procedure well. Gagan Ray PA-C, was present for the entire procedure. He was critical for patient positioning, prepping, draping, retraction exposure, wound closure and application of sterile dressing. I attest to the content of the Intraoperative Record and any orders documented therein. Any exceptions are noted below.
--- NOTE | 2022-02-22 12:41 | XRay Report ---
XR shoulder RT min 2V routine CLINICAL HISTORY: Post shoulder surgery. Status post shoulder replacement COMPARISON STUDY: No previous studies for comparison. TECHNIQUE: 3 right shoulder views FINDINGS: The patient is status post total shoulder replacement with humeral head and glenoid compone nts. The prosthetic components are in anatomic alignment with no acute abnormality identified. Skin s taples are present from the recent procedure. IMPRESSION: 1. Status post total shoulder replacement. ACT 112: Negative or not required by law. Electronically signed by: Nathanael Jean M.D. 02/22/2022 12:39 PM
--- NOTE | 2022-02-22 12:46 | Anesthesiology Progress Note ---
Date of Service February 22, 2022 Anesthesia Post Procedure Vital Signs Vital Signs: Temp Pulse Pulse Resp BP BP Pulse Ox 02/22/22 12:40 72 20 129/65 95 02/22/22 12:30 63 19 127/64 100 02/22/22 12:20 68 18 141/65 H 100 02/22/22 12:10 66 18 131/69 95 02/22/22 12:02 96.8 F L 73 12 124/72 124/72 95 02/22/22 09:05 97.9 F 72 18 150/73 H 95 Pain Intensity Right Shoulder: Pain Intensity: 7 Left Shoulder: Pain Intensity: 3 Transfer of Care Handoff Completed per policy Notes Mental Status: alert / awake / arousable and participated in evaluation Patient Amnestic to Procedure: Yes Nausea / Vomiting: adequately controlled Pain: adequately controlled Airway Patency, RR, SpO2: stable & adequate BP & HR: stable & adequate Hydration State: stable & adequate Anesthetic Complications: no major complications apparent and Pt Satisfied with anesthetic care
[2022-02-22] MEDS ORDERED: oxyCODONE HCL IR 5 MG TAB (IMMEDIATE RELEASE) PO PRN (13:00)
[2022-02-22] MEDS ORDERED: FLUTICASONE PROPIONATE NA SPR 16 GM BTL NAE PRN (13:00)
[2022-02-22] MEDS ORDERED: METOCLOPRAMIDE HCL INJ 5 MG/ML 2 ML VIAL IV PRN (13:00)
[2022-02-22] MEDS ORDERED: MAGNESIUM HYDROXIDE SUSP 30 ML UDC PO PRN (13:00)
[2022-02-22] MEDS ORDERED: PHARMACY GLYCEMIC MGMT CONSULT PRN (13:00)
[2022-02-22] MEDS ORDERED: HYDROmorphone INJ 0.5 MG/0.5 ML SYR IV PRN (13:00)
[2022-02-22] MEDS ORDERED: bisacodyL 10 MG SUPP PR PRN (13:00)
[2022-02-22] MEDS ORDERED: NALOXONE HCL 0.4 MG/1 ML VIAL/CARP IV PRN (13:00)
--- NOTE | 2022-02-22 13:29 | Pharmacy Report ---
Pharmacy Glycemic Short Note 2 - Date of Service February 22, 2022 - Glycemic Short BSG Results (Last 24 hours): 02/22/22 02/22/22 08:45 13:18 POC Glucose 190 H 209 H OUTPATIENT ANTIDIABETIC REGIMEN: * Jardiance 25 mg daily * A1c 8.4% 12/2021 ASSESSMENT: * 86 year old male s/p shoulder surgery, POD 0. Patient received both PO/IV steroids therefore I anticipate steroid induced hyperglycemia. Postop BSGelevated at 209 mg/dL * Plan to give NPH 13 units x 1 (~0.2 unit/kg) now to help with steroid effects, will trial stress of 3 for novolog PLAN FOR INPATIENT GLYCEMIC CONTROL: * Hold outpatient oral diabetes medications * Basal insulin * NPH 13 units x 1 to cover steroids * Bolus insulin * NovoLog per scale ACHS or Q6hrs while NPO * Goal Range: Low 120 mg/dL - High 160 mg/dL * Correction Factor: 25 mg/dL/unit * Nutritional / Prandial insulin per carb ratio of 1 unit per 8 grams CHO consumed
[2022-02-22] MEDS: SODIUM CHLORIDE 0.9% 1000ML 1,000 ML IV SCH ×2 (13:35→23:48)
[2022-02-22] MEDS ORDERED: DEXTROSE 50% 50 ML SYRINGE IV PRN (13:45)
[2022-02-22] MEDS ORDERED: CARBOHYDRATES FOR HYPOGLYCEMIA PO PRN (13:45)
[2022-02-22] MEDS ORDERED: NovoLIN-N (NPH) PER UNIT CHARGE SQ ONE (13:45)
[2022-02-22] MEDS ORDERED: GLUCAGON FOR INJ 1 MG VIAL IM PRN (13:45)
[2022-02-22] MEDS ORDERED: GLUCOSE 40% GEL 15 GM TUBE PO PRN (13:45)
[2022-02-22] MEDS ORDERED: GLUCOSE 10 TAB/TUBE PO PRN (13:45)
[2022-02-22] MEDS: INSULIN ASPART PER UNIT SC SCH ×3 (14:06→20:47)
[2022-02-22] MEDS: ACETAMINOPHEN 500 MG TAB PO SCH ×2 (14:07→21:09)
[2022-02-22 14:28] LABS: Creatinine Clr Calc Pharmacy 40.8 ml/min; Est GFR (African American) 63.3 ml/min; Est GFR (Non-African American) 54.6 ml/min
[2022-02-22] MEDS: ceFAZolin 2000MG 2,000 MG/15 ML SYR IV SCH (18:10)
[2022-02-22] MEDS: DOCUSATE SODIUM 100 MG CAP PO SCH (20:13)
[2022-02-22] MEDS: CEROVITE ADV FORMULA TAB PO SCH (20:40)
[2022-02-22] MEDS: APIXABAN 5 MG TABLET PO SCH (20:41)
[2022-02-22] MEDS ORDERED: ASPIRIN 81 MG ECTAB PO SCH (21:00)
[2022-02-22] MEDS ORDERED: METOPROLOL SUCC 25MG EXT REL TAB PO SCH (21:00)
[2022-02-22] MEDS ORDERED: OLMESARTAN MEDOXOMIL 5 MG TAB PO SCH (21:00)
[2022-02-22] MEDS ORDERED: ROSUVASTATIN CALCIUM 10 MG TAB PO SCH (21:00)
[2022-02-22] MEDS ORDERED: SENNA 8.6 MG TAB PO SCH (21:00)
[2022-02-22] MEDS ORDERED: PANTOprazole 40 MG TAB PO SCH (21:00)
[2022-02-22] MEDS ORDERED: FOLIC ACID 1 MG TAB PO SCH (21:00)
[2022-02-23] MEDS ORDERED: INSULIN ASPART PER UNIT SC SCH
[2022-02-23] MEDS: ceFAZolin 2000MG 2,000 MG/15 ML SYR IV SCH (02:06)
[2022-02-23] MEDS: ACETAMINOPHEN 500 MG TAB PO SCH (05:52)
[2022-02-23] MEDS: APIXABAN 5 MG TABLET PO SCH (08:46)
[2022-02-23] MEDS: DOCUSATE SODIUM 100 MG CAP PO SCH (08:46)
[2022-02-23] MEDS: CEROVITE ADV FORMULA TAB PO SCH (08:46)
[2022-02-23] MEDS: INSULIN ASPART PER UNIT SC SCH (08:54)
[2022-02-23] MEDS ORDERED: predniSONE 5 MG TAB PO SCH (09:00)
[2022-02-23] MEDS ORDERED: MULTIVITAMIN TAB PO SCH (09:00)
--- NOTE | 2022-02-23 09:54 | Orthopedic Progress Note ---
Date of Service February 23, 2022 Assessment & Plan (1) Status post reverse total replacement of right shoulder: Plan to be discharged to home today Continue with PT as directed Arm sling for 3 weeks Pain medication (tramadol) has been called to your pharmacy Follow up in office in 2-3 weeks Subjective Kapil is an 86 y/o male POD#1 right reverse shoulder arthroplasty. He is sitting upright, alert and oriented this morning. Minimal complaints of pain, numbness or tingling in his right upper extremity. Review of Systems All systems reviewed & are unremarkable except as noted in HPI & below. Physical Exam Incision is clean, dry, no erythema or drainage. He is otherwise neurovascularly intact. Results & Data Results & Data Laboratory Results . Diagnostic Findings . PG Care Time/CCT Total # of Minutes Spent Total Time Spent with Patient: Total time spent is greater than 50% in coordination of care (as documented) at patient's floor/unit and/or counseling patient: Coding Level of Care Code 56824 Post Operative Follow-Up Diagnoses Status post reverse total replacement of right shoulder Z96.611
[2022-02-24] MEDS ORDERED: metHOTREXate sodium 2.5 MG TAB PO SCH (09:00)
--- NOTE | 2022-02-25 17:22 | Discharge Summary ---
Date of Service February 25, 2022 Admission HPI (Per Admitting) Kapil is a pleasant 86-year-old male who has had a year long history of increasing right shoulder pain and decreased range of motion. X-rays have been diagnostic for advanced osteoarthritis of the right shoulder. He has a history of rotator cuff repair done about 5 to 6 years ago. He initially did well, but his symptoms have declined. After failing extensive conservative treatment, he haselected to proceed with a right reverse shoulder arthroplasty.. Admission Exam (Per Admitting) On physical examination of right shoulder, he has about 100 degrees of forward elevation 90 degrees of abduction. He has 4 out of 5 motor strength throughout. . Principal Diagnosis Same as "Discharge Diagnosis" noted below under Discharge Instructions. Discharge Exam Incision is clean, dry, no erythema or drainage. He is otherwise neurovascularly intact. Discharge Data Procedures Performed Operation Date: 02/22/22 10:30 Actual Procedures p Right Total Shoulder Arthroplasty Reverse(Right) - Gagan Monson DO Ordered Studies 02/22/22 09:58 US - OR guided needle placemen Routine Hospital Course (1) Status post reverse total replacement of right shoulder: On February 22 2022 Gonzalo arrived at [facility] and underwent a right reverse shoulder replacement without complication. He had a general anesthetic and a right interscalene nerve block. Postoperatively he was placed in a sling and transferred to the general orthopedic floors. His hospital course was uneventful. On postop day #1, his vital signs were stable and his pain was well controlled. He was able to participate well with physical therapy doing a mbulation and range of motion exercises. He was then discharged home. He will follow-up with orthopedics in 2 weeks. PG Care Time/CCT Total # of Minutes Spent Total Time Spent with Patient: Total time spent is greater than 50% in coordination of care (as documented) at patient's floor/unit and/or counseling patient: Discharge Plan Discharge Items Patient Disposition: Home - Home Health Services Reason For Visit: Rgiht Shoulder Degenerative Joint Disease Discharge Diagnosis: Right reverse shoulder replacement Activity: Per Instructions section Non-emergency contact: Surgeon Call non-emergency contact if: your wound has increased redness and your wound has increased drainage Follow-up/Referrals: Carlos Kraft DO [Primary Care Provider] - Diet: Regular Addtl Attending Provider Instructions: Activity and Therapy Recommendations: * If you are using [facility] then therapy will be provided at your home until they feel you have accomplished all of your goals. * If you are using [facility] then Physical Therapy will be provided until they feel you are ready to start Outpatient Physical Therapy. * If you are not using home therapy then Outpatient Physical Therapy should start about 3-5 days from your day of surgery. Therapy will last about 8-12 weeks * Wear your sling for 3 weeks, unless otherwise instructed. You may remove your sling to shower and to dress, but otherwise, you should be in your sling at all times, including while sleeping * The shoulder replacement is very stable and you can use your hand while in the sling * You were shown a series of exercises in the hospital. Do these exercises daily including the exercises you were shown in physical therapy. Medications: * Narcotic You will likely be sent home from the hospital with a prescription for the narcotic pain medication that worked best throughout your stay. * Other medications may be prescribed for specific circumstances. If you have any questions, please call the office at . * Resume previous home medications unless otherwise instructed Dressing Care: Leave the Silverlon dressing in place for 7 days. After 7 days you may remove the dressing. If the incision is not draining then you may leave the lelo open to air. If there is a little bit of drainage or if the lelo are getting stuck on your clothing then cover the incision with a dry dressing. The lelo will be removed at your 2 week follow-up appointment. Showering: You may shower with the Silverlon dressing in place. Do not let the shower spray hit the dressing directly. Pat the Silverlon dressing dry. If the dressing becomes wet underneath, then simply remove the dressing. Keep the incision dry until you are 7 days out from the day of surgery. After 7 days you may remove the Silverlon dressing and shower with the lelo exposed. Let soapy water run over the lelo and pat them dry. Do not scrub or soak the incision. Things To Watch For: * Drainage from the incision site that occurs more than one week after your surgery. * Increased redness at the incision site. * Fever above 102 degrees Fahrenheit. * Unusual chest pain or shortness of breath. * Call [facility] at with any of the above problems Follow-Up Visit: Follow-up with Dr. Monson's PA (Gagan Ray) 2-3 weeks after your day of surgery. He will remove your lelo and answer any questions. If you have any additional questions or concerns, Dr Monson is usually in the office at the same time and will be available An appointment was probably scheduled when you signed-up for surgery in the office. If you have any questions call More detailed instructions as well as Frequently Asked Questions were provided in a folder by our office when you signed-up for surgery. Please review these instructions when you get home. If you have any further questions or concerns, please feel free to call the office at [phone] Pending Studies at Discharge: No Stand-Alone Forms: [facility] [address] [employer], Smoking Cessation Medications and DC Order Prescriptions: New tramadol 50 mg tablet 50 mg PO Q6H PRN (Reason: pain) Qty: 30 RF: 0 Continued apixaban [Eliquis] 5 mg tablet 5 mg PO BID RF: 0 metoprolol succinate 25 mg tablet extended release 24 hr 25 mg PO QPM RF: 0 prednisone 5 mg Tablet 5 mg PO QAM RF: 0 aspirin 81 mg Tablet,Delayed Release (Dr/Ec) 81 mg PO QPM RF: 0 methotrexate sodium 2.5 mg Tablet 15 mg PO WK RF: 0 folic acid 1 mg Tablet 1 mg PO QPM RF: 0 B-complex with vitamin C [Super B Complex-Vitamin C] Tablet 1 tab PO QAM RF: 0 coenzyme Q10 [CoQ-10] 100 mg Capsule 100 mg PO QPM RF: 0 cholecalciferol (vitamin D3) [Vitamin D3] 1,000 unit Tablet 2,000 unit PO QAM RF: 0 pantoprazole [Protonix] 40 mg Tablet,Delayed Release (Dr/Ec) 40 mg PO QPM RF: 0 PreserVision AREDS-2 250-90-40-1 mg Capsule 1 tab PO BID RF: 0 olmesartan [Benicar] 20 mg Tablet 5 mg PO QPM RF: 0 rosuvastatin [Crestor] 10 mg Tablet 10 mg PO QPM RF: 0 Allergy Relief (cetirizine) 10 mg Capsule 10 mg PO QPM RF: 0 Jardiance 10 mg Tablet 25 mg PO QAM RF: 0 fluticasone propionate 50 mcg/actuation [place],Suspension 2 spray INTRANASAL DAILY PRN (Reason: Nasal Congestion) RF: 0 naproxen sodium [Aleve] 220 mg Capsule 220 mg PO BID PRN (Reason: Pain) RF: 0 ferrous sulfate 143 mg (45 mg iron) Tablet Extended Release 143 mg PO QPM RF: 0 (DME) blood-glucose meter [FreeStyle [place] Lite] Kit See Rx Instructions .ROUTE .MEDSUPPLY Qty: 1 RF: 0 (DME) FreeStyle Lite Strips Strip See Rx Instructions .ROUTE .MEDSUPPLY Qty: 100 RF: 0 (DME) lancets [FreeStyle Lancets] 28 gauge misc See Rx Instructions .ROUTE .MEDSUPPLY Qty: 100 RF: 0 (DME) pen needle, diabetic 32 gauge x 5/32" needle See Rx Instructions .ROUTE .MEDSUPPLY Qty: 100 RF: 0 No Action ondansetron 4 mg tablet,disintegrating 4 mg PO Q8H PRN (Reason: nausea and vomiting) Qty: 14 RF: 0 Discharge Orders: Discharge Order (Routine); Ordered 02/23/22 Ordered By: Gagan Ray Admission Data Admit Date/Time: 02/22/22 12:06 Attending Provider: Gagan Monson Admit Provider: Gagan Monson Primary Care Provider: Carlos Kraft Other Interventions: Discharge Summary Assessment (RN) Last Done: 02/23/22 10:55
== END 2022-02-23 11:42 | disposition home health service (06) ==
LOC: ASU 08:20 → 3E 08:20

== ENCOUNTER 2023-10-12 20:12 | Inpatient (IN) ==
[2023-10-12 21:06] LABS: Hematocrit (blood only) 32.4 % (42.0-52.0); Hemoglobin 9.9 g/dl (14.0-18.0); Mean Corpuscular Hemoglobin 28.1 pg (25.0-34.0); Mean Corpuscular Hgb Conc 30.6 g/dL (32.0-36.0); Mean Platelet Volume 9.1 fL (9.4-12.4); Platelet Count 166 K/uL (130-400); RDW Coefficient of Variation 17.4 % (11.5-14.5); RDW Standard Deviation 56.8 fL (36.4-46.3); Red Blood Count 3.52 M/uL (4.70-6.10); White Blood Count 7.03 K/ul (4.8-10.8)
[2023-10-12 21:25] LABS: Albumin Globulin Ratio 1.2 (0.9-2); Albumin Level 3.4 gm/dl (3.4-5.0); BUN Creatinine Ratio 12.4 (10-20); Bilirubin,Total 0.5 mg/dl (0.2-1.0); Calcium 8.4 mg/dl (8.6-10.3); Est GFR (African American) 56.6 ml/min; Est GFR (Non-African American) 48.8 ml/min; Globulin 2.8 gm/dl (2.5-4.0); Potassium 3.9 mmol/L (3.5-5.1); Total Protein 6.2 gm/dl (6.0-8.3)
[2023-10-12 21:35] LABS: INR 1.1 (0.9-1.1); Partial Thromboplastin Time 29 Seconds (21-31); Prothrombin Time 12.1 Seconds (9.0-12.0)
--- NOTE | 2023-10-12 21:43 | Emergency Department Note ---
Impression & Plan Lower GI bleed, CAD (coronary artery disease), A-fib, C. difficile colitis ED Provider Note NAME: RASHAD DANIELS AGE: 88 SEX: M : 1935 ARRIVES VIA: Walk-In INFORMANT: [Patient][, ] ED PROVIDER(S): [Edmundo Marcelino MD] CHIEF COMPLAINT: Rectal bleeding MEDICAL DECISION MAKING: Patient presents due to concern for rectal bleeding. Patient is on Eliquis aspirin and Plavix. IV was established and blood work was obtained. The patient's had a 2 point drop in his hemoglobin from July. Platelet count is unremarkable. The patient's kidney function is unremarkable. Calcium of 8.4. Given the patient's Eliquis aspirin and Plavix use with 2 point drop in hemoglobin with associated elevated pulse rate at the time of arrival did recommend inpatient treatment and monitoring for reassessment and repeat hemoglobin checks. Patient and family members are comfortable with this plan of care. I did speak with Dr. Muse and the patient was admitted to the medicine service. I did discuss the possibility of C. difficile and stool studies were ordered by the inpatient team and pending. Discussion w/ other healthcare providers: Dr. Austin inpatient medicine service Prior /Outside records reviewed: I did review the patient's most recent catheterization diagram which did show 2 overlapping stents that were placed from the left circumflex to the OM 2. Differential diagnosis: Diverticulitis, AVM, coagulopathy, colitis, inflammatory bowel disease, malignancy, esophagitis, peptic ulcer disease, variceal bleed, gastritis, fissure, hemorrhoids, as well as other pathologies. Diagnostics, as interpreted by me: ECG: [none] Cardiac monitoring: An order was placed for continuous cardiac monitoring. The monitor shows a rate of [] with [] rhythm. [Patient was placed on pulse oximetry] Medical decision rules: [none] Imaging studies: None [] HPI: Patient presents due to concern for rectal bleeding which she noticed in the last 2 days. Patient states that initially was just with wiping but upon presentation to the hospital today the patient's daughter noted that the patient did have bowel movement that does show blood. Patient is currently on aspirin Plavix as well as Eliquis. Patient did have a recent heart catheterization and stents completed at [facility]. The patient was to take dual antiplatelet therapy through this down to the aspirin. The patient did have a cardiac catheterization and stent placement secondary to symptoms of shortness of breath. Patient denies any falls or trauma. Patient has not had a colonoscopy in many years but no prior history of any major issues or colon cancer or inflammatory bowel disease. Patient last took his blood thinner this morning in addition to his antiplatelet. Patient denies any constipation related symptoms or straining. No hard stools. Patient reportedly has had diarrhea for 1 month and this was preceded by taking antibiotics amoxicillin. PAST MEDICAL HISTORY: [See Below] PAST SURGICAL HISTORY: [See Below] SOCIAL HISTORY: [See Below] HOME MEDICATIONS: [See Below] ALLERGIES: [See Below] VITALS: [See Below] PHYSICAL EXAMINATION: GENERAL: NAD, non-toxic. EYE EXAM: Normal conjunctiva. PERRL, no anisocoria and EOM's grossly intact w/o pain. OROPHARYNX: Moist mucus membranes, grossly normal dentition. NECK: Trachea midline, no stridor. [Supple, no nuchal rigidity, no adenopathy, non-tender. No signs of meningismus. FROM of the neck with good chin to chest and neck extension.] LUNGS: Clear to auscultation. Normal chest wall mechanics. HEART: NSR, no MRG. ABDOMEN: Abdomen soft, non-tender, no masses, no rebound or guarding. BACK: No CVA TTP. SKIN: No rashes and no bruising. Rectal: Bloody stool noted, enlarged prostate, external hemorrhoids noted that are nonbleeding UPPER EXTREMITIES: Upper extremities are grossly normal. LOWER EXTREMITIES: Grossly normal, no edema. NEURO EXAM: A&O x3, cranial nerves II-XII grossly intact, normal speech, moves all 4 extremities. Past Med/Surg History Medical History Belching reason for upcoming procedure with periodic abdominal pain -- will happen randomly and worse after eating Postlaminectomy syndrome of lumbosacral region History of COVID-19 01/2022 ([facility])- weakness, fatigue, fever, nasal congestion and sore throat > resolved Heart failure pt unaware Vertigo hx - last episode 1+ months ago. Asymptomatic carotid artery stenosis Hx noted per records > no hemodynamically significant ICA stenosis per 03/2021 carotid doppler Osteoarthritis, shoulder GERD (gastroesophageal reflux disease) Benign prostatic hyperplasia with urinary obstruction Hx A-fib Paroxysmal, follows with Dr. Medel Chronic back pain Sleep apnea Could not tolerate device Myocardial Infarction CABG x3 (2006) Hyperlipidemia Type 2 diabetes mellitus IDDM Rheumatoid arthritis CAD (coronary artery disease) CABG x3 (2006) Hypertension Surgical History History of reverse total replacement of right shoulder joint Right reverse TSA (02/22/22): LMA#4 iGel + PNB at [facility]. No issues noted per post-op anesthesia progress note. History of elbow surgery R/L Nausea and vomiting after administration of anesthetic agent with cholecystectomy History of cardiac cath 2006 > CABG x3 Status post lumbar spinal fusion L2-5 posterior decompression and fusion August 2019 Dr. Perez History of esophagogastroduodenoscopy (EGD) History of colonoscopy History of tooth extraction S/P left knee arthroscopy H/O repair of right rotator cuff H/O repair of left rotator cuff x2 History of cataract extraction R/L History of cholecystectomy Hx of CABG S/P CABG X 3 (2006) Family History Sister Family history of diabetes mellitus Cancer Father Hypertension Other No family history of adverse response to anesthesia Social History Smoking Status: Former smoker Tobacco Type: Pipe Cigarettes Per Day: Quit early ; Second Hand Exposure: No; Do You Dip or Chew Tobacco: No; Hx Alcohol Use: No Hx Substance Use: No Preferred Language: Cymro Communication Ability: Effective Visual Impairment: Limited Hearing Ability: Normal Flare Breaker Required: No Beliefs That Will Affect Care: None marital status: Current Living Situation: Spouse current occupational status: retired Feels Safe at Home: Yes Assistive Devices: Walker Allergies Allergies Allergy/AdvReac Type Severity Reaction Status Date / Time No Known Allergies Allergy Mild NONE Verified 10/12/23 21:05 Home Meds Home Medications Medication Instructions Recorded Confirmed B-complex with vitamin C (Super B 1 tab PO QAM 08/07/18 10/12/23 Complex-Vitamin C tablet) aspirin 81 mg tablet,delayed 81 mg PO QPM 08/07/18 10/12/23 release cholecalciferol (vitamin D3) 25 2,000 unit PO QAM 08/07/18 10/12/23 mcg (1,000 unit) tablet (Vitamin D3) coenzyme Q10 100 mg capsule 100 mg PO QPM 08/07/18 10/12/23 (CoQ-10) folic acid 1 mg tablet 1 mg PO QPM 08/07/18 10/12/23 methotrexate sodium 2.5 mg tablet 15 mg PO WK 08/07/18 10/12/23 prednisone 5 mg tablet 5 mg PO QAM 08/07/18 10/12/23 apixaban 5 mg tablet (Eliquis) 5 mg PO BID 09/04/18 10/12/23 pantoprazole 40 mg tablet,delayed 40 mg PO BID 10/24/20 10/12/23 release (Protonix) vit C 250 mg-vit E 90 mg-zinc 40 1 tab PO BID 10/24/20 10/12/23 mg-copper 1 [id number] capsule (PreserVision AREDS-2) metoprolol succinate 25 mg 25 mg PO QPM 08/08/21 10/12/23 tablet,extended release 24 hr cetirizine 10 mg capsule (Allergy 10 mg PO QPM 12/21/21 10/12/23 Relief (cetirizine)) olmesartan 20 mg tablet (Benicar) 5 mg PO QAM 12/21/21 10/12/23 rosuvastatin 10 mg tablet (Crestor) 10 mg PO QPM 12/21/21 10/12/23 insulin glargine 100 unit/mL (3 15 unit subcut HS 12/11/22 10/12/23 mL) subcutaneous pen (Lantus Solostar U-100 Insulin) amlodipine 5 mg tablet 5 mg PO QPM 04/08/23 10/12/23 clopidogrel 75 mg tablet 75 mg PO DAILY 10/12/23 10/12/23 isosorbide mononitrate 30 mg 30 mg PO DAILY 10/12/23 10/12/23 tablet,extended release 24 hr Previous Rx's Medication Instructions Recorded blood sugar diagnostic (FreeStyle #100 ea 01/16/21 Lite Strips) blood-glucose meter (FreeStyle #1 ea 01/16/21 [place] Lite kit) lancets 28 gauge (FreeStyle #100 ea 01/16/21 Lancets) pen needle, diabetic 32 gauge x #100 ea 01/16/21" tamsulosin 0.4 mg capsule 0.4 mg PO DAILY #30 caps 09/22/23 vancomycin 1,000 mg intravenous 125 mg PO Q6H 8 days #10 ea 10/14/23 injection Results & Data (ED) Vital Signs Vital Signs - 24 hr 10/12/23 20:19 10/12/23 20:55 10/12/23 20:56 Temperature 36.6 C Temperature Source Temporal Artery Scan Pulse Rate 105 H 93 H Respiratory Rate 17 Blood Pressure 118/66 Blood Pressure Mean 83 Blood Pressure Position Sitting Pulse Oximetry 95 Oxygen Delivery Method Room Air Room Air Sepsis Recent Fever Within 48 Hours No Sepsis New/Unexplained Change in Mental Status No Sepsis Action Taken by Nursing No Action Required 10/12/23 20:56 10/12/23 21:00 10/12/23 21:00 Temperature Temperature Source Pulse Rate 93 H 95 H Respiratory Rate 23 Blood Pressure 119/77 Blood Pressure Mean 105 Blood Pressure Position Pulse Oximetry Oxygen Delivery Method Sepsis Recent Fever Within 48 Hours Sepsis New/Unexplained Change in Mental Status Sepsis Action Taken by Nursing 10/12/23 21:10 10/12/23 21:30 10/12/23 21:30 Temperature Temperature Source Pulse Rate 96 H 93 H Respiratory Rate 20 24 Blood Pressure 139/75 Blood Pressure Mean 109 Blood Pressure Position Pulse Oximetry Oxygen Delivery Method Sepsis Recent Fever Within 48 Hours Sepsis New/Unexplained Change in Mental Status Sepsis Action Taken by Group Home Medications Current Medication List: was personally reviewed by me Laboratory Data Attestation: I reviewed the patient's lab results. 10/13/23 20:16 10/14/23 06:40 Lab Results 10/12/23 10/12/23 10/12/23 Range/Units 20:50 21:01 22:22 WBC 7.03 (4.8-10.8) K/ul RBC 3.52 L (4.70-6.10) M/uL Hgb 9.9 L (14.0-18.0) g/dl Hct 32.4 L (42.0-52.0) % MCV 92.0 (80.0-100.0) fL MCH 28.1 (25.0-34.0) pg MCHC 30.6 L (32.0-36.0) g/dL RDW Std Deviation 56.8 H (36.4-46.3) fL RDW Coeff of Ari 17.4 H (11.5-14.5) % Plt Count 166 (130-400) K/uL MPV 9.1 L (9.4-12.4) fL PT 12.1 H (9.0-12.0) Seconds INR 1.1 (0.9-1.1) APTT 29 (21-31) Seconds PTT Ratio 1.0 Sodium 137 (136-145) mmol/L Potassium 3.9 (3.5-5.1) mmol/L Chloride 102 (98-107) mmol/L Carbon Dioxide 29 (21-32) mmol/L Anion Gap 6 (3-11) BUN 16 (6-23) mg/dl Creatinine 1.29 (0.6-1.4) mg/dl Est Cr Clr Drug Dosing 37.0 ml/min Est GFR ( Amer) 56.6 ml/min Est GFR (Non-Af Amer) 48.8 ml/min BUN/Creatinine Ratio 12.4 (10-20) Glucose 164 H (70-99(Fasting)) mg/dl Calcium 8.4 L (8.6-10.3) mg/dl Total Bilirubin 0.5 (0.2-1.0) mg/dl AST 18 (13-39) U/L ALT 15 (7-52) U/L Alkaline Phosphatase 72 (34-104) U/L Troponin I High Sens 10.0 (0-20) pg/ml Total Protein 6.2 (6.0-8.3) gm/dl Albumin 3.4 (3.4-5.0) gm/dl Globulin 2.8 (2.5-4.0) gm/dl Albumin/Globulin Ratio 1.2 (0.9-2) POC Stool Occult Blood Positive A (Negative) Blood Type O Negative Antibody Screen NEGATIVE Administered Medications Discontinued Medications Aspirin (Aspirin 81 Mg Ectab) 81 mg PO QPM JIA Stop: 11/12/23 20:59 Last Admin: 10/13/23 21:08 Dose: 81 mg Documented By: AJEufemia Benzonatate (Benzonatate 100 Mg Capsule) 100 mg PO TID PRN PRN Reason: Cough Stop: 11/12/23 04:34 Last Admin: 10/13/23 11:26 Dose: 100 mg Documented By: GGG Arevalo Syrup (Arevalo Syrup 5 Ml Udp) 5 ml PO ONE STA Stop: 10/13/23 02:41 Last Admin: 10/13/23 03:39 Dose: 5 ml Documented By: BONIFACIO Arevalo Syrup (Arevalo Syrup 5 Ml Udp) 5 ml PO Q6H JIA Stop: 10/23/23 05:59 Last Admin: 10/14/23 12:11 Dose: 5 ml Documented By: Admin: 10/14/23 05:32 Dose: 5 ml Documented By: Admin: 10/14/23 00:22 Dose: 5 ml Documented By: Admin: 10/13/23 16:54 Dose: 5 ml Documented By: Admin: 10/13/23 11:20 Dose: 5 ml Documented By: Admin: 10/13/23 06:47 Dose: 5 ml Documented By: BONIFACIO Clopidogrel Bisulfate (Clopidogrel Bisulfate 75 Mg Tab) 75 mg PO DAILY JIA Stop: 11/13/23 08:59 Last Admin: 10/14/23 08:10 Dose: 75 mg Documented By: ANGELA Acetaminophen (Ofirmev) 1,000 mg in 100 mls @ 400 mls/hr IV NOW STA Stop: 10/12/23 23:18 Last Infusion: 10/12/23 23:32 Dose: Infused Documented By: Admin: 10/12/23 23:16 Dose: 400 mls/hr Documented By: LARRY Potassium Chloride/Sodium Chloride (Normal Saline W/20 Meq Kcl) 20 meq in 1,000 mls @ 80 mls/hr IV .[id number] JIA; Protocol Stop: 11/11/23 23:14 Last Infusion: 10/13/23 15:58 Dose: Infused Documented By: Admin: 10/13/23 12:57 Dose: 80 mls/hr Documented By: Infusion: 10/13/23 12:02 Dose: Infused Documented By: Admin: 10/12/23 23:32 Dose: 80 mls/hr Documented By: RONNIE Pantoprazole Sodium 40 mg/ (Syringe) 10 mls @ 5 mls/min IV BID JIA Stop: 11/12/23 08:59 Last Admin: 10/14/23 08:12 Dose: 5 mls/min Documented By: Admin: 10/13/23 21:08 Dose: 5 mls/min Documented By: Admin: 10/13/23 09:00 Dose: 5 mls/min Documented By: RICHARD Pantoprazole Sodium 40 mg/ (Syringe) 10 mls @ 5 mls/min IV NOW ONE Stop: 10/12/23 23:31 Last Admin: 10/12/23 23:56 Dose: 5 mls/min Documented By: LARRY Acetaminophen (Ofirmev) 1,000 mg in 100 mls @ 400 mls/hr IV Q8H PRN PRN Reason: Pain or Fever Stop: 10/16/23 06:59 Last Infusion: 10/13/23 11:46 Dose: Infused Documented By: Admin: 10/13/23 11:21 Dose: 400 mls/hr Documented By: DESIRE Insulin Aspart (Insulin Aspart Per Unit Charge) 0 units SC Q6 JIA Stop: 11/12/23 05:59 Last Admin: 10/13/23 10:59 Dose: Not Given Documented By: Admin: 10/13/23 06:48 Dose: Not Given Documented By: BONIFACIO Co-signed By: LAUREN Insulin Aspart (Insulin Aspart Per Unit Charge) 0 units SC ACHS JIA Stop: 11/12/23 16:29 Last Admin: 10/14/23 12:20 Dose: Not Given Documented By: Admin: 10/14/23 08:10 Dose: 5 units Documented By: ANGELA Co-signed By: TERE Admin: 10/13/23 21:02 Dose: Not Given Documented By: Admin: 10/13/23 16:53 Dose: 5 units Documented By: ANGELA Co-signed By: RICHARD Vancomycin HCl (Vancomycin Hcl 125 Mg/2.5ml Soln) 125 mg PO ONE STA Stop: 10/13/23 02:41 Last Admin: 10/13/23 03:39 Dose: 125 mg Documented By: BONIFACIO Vancomycin HCl (Vancomycin Hcl 125 Mg/2.5ml Soln) 125 mg PO Q6H JIA Stop: 10/23/23 05:59 Last Admin: 10/14/23 12:11 Dose: 125 mg Documented By: Admin: 10/14/23 05:32 Dose: 125 mg Documented By: Admin: 10/14/23 00:22 Dose: 125 mg Documented By: Admin: 10/13/23 17:09 Dose: 125 mg Documented By: Admin: 10/13/23 11:19 Dose: 125 mg Documented By: Admin: 10/13/23 06:47 Dose: 125 mg Documented By: BONIFACIO Discharge Plan Visit Data Chief Complaint: Rectal Bleed Stated Complaint: RECTAL BLEED ED Provider: Edmundo Marcelino Discharge Problem: Lower GI bleed, CAD (coronary artery disease), A-fib, C. difficile colitis Patient Disposition: Admitted As Inpatient Discharge Instructions Interventions: ED Discharge Assessment Last Done: 10/13/23 02:16 Discharge Problem: CAD (coronary artery disease) Qualifiers: Coronary Disease-Associated Artery/Lesion type: unspecified vessel or lesion type [place] vs. transplanted heart: [place] heart Associated angina: unspecified whether angina present Qualified Code(s): I25.10 - Atherosclerotic heart disease of [place] coronary artery without angina pectoris A-fib Qualifiers: Atrial fibrillation type: unspecified Qualified Code(s): I48.91 - Unspecified atrial fibrillation
--- OUTSIDE RECORDS SUMMARY | 2023-10-12 22:19 | External Medical Summary | Continuity of Care Document ---
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 Name Role Phone Carlos Kraft Primary Care Physician [phone] Encounter [facility] [id number] Date(s): 09/29/23 - 09/29/[address] [place] [facility] [address] [facility], [address] [place] [address] [phone] Encounter Diagnosis Shortness of breath(Discharge Diagnosis) - 09/29/23 Diarrhea(Discharge Diagnosis) - 09/29/23 Discharge Disposition: Home or Self Care Attending Physician: MD Hernandez Ravishankar E Referring Physician: DO Medel Jason D Allergies, Adverse Reactions, Alerts Substance Reaction Severity Status doxycycline upset stomach Active cephalexin nausea, diarrhea Active atorvastatin Unknown Active Maxzide itching Active simvastatin 1 Unknown Active fluvastatin Unknown Active Zantac excess gas, abdominal pain A ctive Zocor aches Active Lescol achey muscles lescol Active Lipitor chest pain Active Floxin itchy Active Pravachol aches Active Motrin abdominal pain itching Active Zetia aches Active 1Outside Source Comment: Can%27t take statins- muscle aches and pruritis Assessment and Plan Extracted from: Title:Office Visit Note Author:DO Velazco Kamron Date:09/29/23 1.Shortness of breath Chronic condition Data:external notes reviewedincluding:CXR from today. _ Plan: -Patient with shortness of breath occurring for a while now with increase SoB with ambulation noted at cardiology visit earlier in the month. CXR was performed earlier today with normal read, no acute cardiopulmonary findings. Vitals stable today as well. -Given normal lung exam and CXR negative for acute process may be more cardio related. Patient was to have visit with cardiology tomorrow however incoming inclement weather has postponed this.Patient will work onrescheduling with cardiology. 2.Diarrhea Acute, not at goal of resolution. Likely related to altered gut edison; has bloating sensation as well as some residual diarrhea with some days with more formed stool. Recommended patient try simethicone OTC for bloating sensation and continue daily yogurt for good gut biome return. Daughter bought patient pedialyte, encouraged patient to keep hydrated with this so as to not deplete electrolytes. Blood work from 09/26 with normal BMP reassuring. Immunizations Given and Recorded Vaccine Date Status Refusal Reason SARS-CoV-2 (COVID-19) mRNA-1273 vaccine 1 11/02/20 Recorded SARS-CoV-2 (COVID-19) mRNA-1273 vaccine 2 10/05/20 Recorded zoster vaccine, inactivated 3 11/10/18 Recorded zoster vaccine, inactivated 07/31/18 Recorded zoster vaccine, inactivated 4 11/10/17 Recorded tetanus toxoids-diphtheria, Td (Adult) 08/07/18 Re corded tetanus toxoids-diphtheria, Td (Adult) 05/06/08 Re corded pneumococcal 13-valent vaccine 04/19/15 Given influenza virus vaccine, inactivated 06/06/14 [place] rded influenza virus vaccine, inactivated 05/13/13 Give n influenza virus vaccine, inactivated 05/04/12 Give n pneumococcal 23-valent vaccine 5 05/29/10 Recorded pneumococcal 23-valent vaccine 06/20/99 Recorded zoster vaccine live 10/07/08 Recorded pneumococcal 7-valent vaccine 6 08/06/05 Recorded 1Result Comment: 2021-11-12: Historical information-source unspecified 2Result Comment: 2021-11-12: Historical information-source unspecified 3Result Comment: 2020-01-03: Historical information-source unspecified 4Result Comment: 2020-01-03: Historical information-source unspecified 5Result Comment: 2020-01-03: Historical information-source unspecified 6Result Comment: 2020-01-03: Historical information-source unspecified Medications amLODIPine 5 mg oral tablet Start: 04/01/23 9:30:00 EDT, 1 tab, PO, Daily, Disp# 30 tab, Refills: 11, Pharmacy: [facility] Start Date: 04/01/23 Status: Ordered aspirin 81 mg oral tablet Start: 04/03/12 14:49:00, 1 tab, PO, Daily Start Date: 04/03/12 Status: Ordered BD needle Ultra-Fine Pen Aneta 32G x 4mm Start: 11/18/22 12:18:00 EDT, See Instructions, Disp# 100 each, Use as directed with insulin. Max 1/day. Use new pen needle with each injection., Note to Pharmacy: E11.9, Pharmacy: [facility]) Start Date: 11/18/22 Status: Ordered BD Test Strips 50 ct Start: 10/07/22 8:37:00 EST, See Instructions, Disp# 100 each, Refills: 1, check surgars BID, Note to Pharmacy: [facility] G2 test strips, Pharmacy: [facility] Start Date: 10/07/22 Status: Ordered Claritin 10 mg oral tablet Start: 03/18/22 12:50:00 EDT, 1 tab, PO, Daily, PRN: as needed for allergy symptoms Start Date: 03/18/22 Status: Ordered Coenzyme Q10 Start: 06/26/10 13:12:52, 100 mg =, PO, qhs, Refills: 0, current medication from another provider Start Date: 06/26/10 Status: Ordered Eliquis 5 mg oral tablet Start: 09/15/23 10:24:00 EST, 1 tab, PO, bid, Disp# 180 tab, Refills: 3, Pharmacy: [facility]) Start Date: 09/15/23 Status: Ordered folic acid 1 mg oral tablet Start: 08/05/22 14:11:00 EST, See Instructions, Disp# 90 tab, Refills: 0, TAKE ONE TABLET BY MOUTH DAILY, Pharmacy: [facility]) Start Date: 08/05/22 Status: Ordered FreeStyle Lancets Miscellaneous Start: 04/17/22 9:41:00 EDT, FreeStyle Lancets Miscellaneous, See Instructions, Disp# 100 unknown unit, Refills: 0, check blood sugar twice daily, Pharmacy [id number] Start Date: 04/17/22 Status: Ordered FreeStyle Lite Test In Vitro Strip Start: 07/15/22 15:07:00 EST, FreeStyle Lite Test In Vitro Strip, See Instructions, Disp# 50 unknown unit, Refills: 3, Test blood sugar twice a day, Pharmacy [id number] Start Date: 07/15/22 Status: Ordered glucose monitor Start: 07/09/22 12:34:00 EST, 1 each, N/A, ac and hs, Disp# 1 each, E11.9 diabetes, Pharmacy: [id number] Start Date: 07/09/22 Status: Ordered Imdur 30 mg oral tablet, extended release Start: 09/18/23 11:38:00 EST, 1 tab, PO, qAM, Disp# 90 tab, Refills: 3, Pharmacy: [facility]) Start Date: 09/18/23 Status: Ordered Lantus Solostar Pen 100 units/mL subcutaneous solution Start: 11/18/22 12:19:00 EDT, 12 unit =, subQ, Daily, Disp# 10 mL, Refills: 3, Pharmacy: [facility] Start Date: 11/18/22 Stop Date: 03/18/23 Status: Ordered Lasix 20 mg oral tablet Start: 09/18/23 11:38:00 EST, 1 tab, PO, Daily, Disp# 90 tab, Refills: 3, Pharmacy: [facility] Start Date: 09/18/23 Status: Ordered methotrexate 2.5 mg oral tablet Start: 09/18/23 10:39:00 EST, 6 tab, PO, q7days Start Date: 09/18/23 Status: Ordered Metoprolol Succinate ER 25 mg oral tablet, extended release Start: 09/18/23 11:36:00 EST, 1 tab, PO, Daily, Disp# 90 tab, Refills: 3, other Start Date: 09/18/23 Status: Ordered nitroglycerin 0.4 mg sublingual tablet Start: 09/18/23 11:42:00 EST, See Instructions, Disp# 20 tab, Refills: 0, Place 1 tab under the tongue every 5 minutes for 3 doses if needed for chest pain. Call 911 if no relief!, Pharmacy: [facility]) Start Date: 09/18/23 Status: Ordered olmesartan 5 mg oral tablet Start: 08/25/23 11:27:00 EST, 1 tab, PO, Daily, Disp# 90 tab, Refills: 3, Pharmacy: [facility]) Start Date: 08/25/23 Status: Ordered pantoprazole 40 mg oral delayed release tablet Start: 03/13/23 11:50:00 EDT, 1 tab, PO, bid, Disp# 60 tab, Refills: 5, Pharmacy: [facility] Start Date: 03/13/23 Stop Date: 09/09/23 Status: Ordered predniSONE 5 mg oral tablet Start: 01/31/21 17:07:00 EDT, 1 tab, PO, Daily Start Date: 01/31/21 Status: Ordered PreserVision AREDS 2 oral capsule Start: 06/30/23 16:35:00 EST Start Date: 06/30/23 Status: Ordered Pyridium 100 mg oral tablet Start: 09/04/23 16:13:00 EST, 1 tab, PO, tid, Disp# 15 tab, Refills: 0, PRN: as needed for urinary discomfort, Pharmacy: [facility]) Start Date: 09/04/23 Stop Date: 09/09/23 Status: Ordered rosuvastatin 10 mg oral tablet Start: 08/22/23 13:01:00 EST, 1 tab, PO, Daily Start Date: 08/22/23 Status: Ordered Super B Complex oral tablet Start: 06/30/23 16:34:00 EST, 1 tab, PO, Daily Start Date: 06/30/23 Status: Ordered Vitamin D3 Start: 04/11/21 10:19:00 EDT Start Date: 04/11/21 Status: Ordered Problem List Condition Confirmation Course Effective Dates Status H ealth Status Informant ALLERGIC RHINITIS Confirmed Active Anemia Confirmed Active Dilated aortic root 1 Confirmed Active Arteriosclerotic vascular disease Confirmed Active Lumbar facet arthropathy Confirmed Active Balanitis Confirmed Active BPPV (benign paroxysmal positional vertigo) Confirmed Active Olecranon bursitis, right elbow Confirmed Active Chronic kidney disease, stage 3a Confirmed Active Chronic obstructive pulmonary disease, unspecified Confirmed Active Calf cramp Confirmed Active DDD (degenerative disc disease) Confirmed Active 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 Confirmed Active Diastolic CHF Confirmed Active Diastolic CHF Confirmed Active Disorder Of Vitamin B12 Confirmed Active Dysphagia Confirmed Active SOB (shortness of breath) Confirmed Active Foot drop, right foot Confirmed Active Gastroesophageal reflux disease Confirmed Active Gastroparesis Confirmed Active Cardiac murmur, unspecified Confirmed Active S/P CABG x 3 Confirmed Active History of lumbar fusion Confirmed Active Dyslipidemia Confirmed Active HTN (hypertension) Confirmed Active Sacroiliitis Confirmed Active Anticoagulant long-term use Confirmed Active Hyperlipidemia Confirmed Active PAF (paroxysmal atrial fibrillation) Confirmed Active Peripheral vertigo Confirmed Active Pressure ulcer of left elbow, unstageable Confirmed Active Rheumatoid arthritis of multiple joints Confirmed 03/04/16 Active Right-sided heart failure 2 Confirmed Active Left shoulder pain Confirmed Active Skin lesion Confirmed Active S/P orthopedic surgery, follow-up exam Confirmed Active 3-vessel CAD Confirmed Active 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 FINDINGS: Aorta- Calcified aortic root and sinotubular junction. 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) audit completed 08/02/21 Diagnosis Diagnosis Type Effective Dates Health Status Cl inical Service Informant Shortness of breath Discharge Diagnosis 09/29/23 Diarrhea Discharge Diagnosis 09/29/23 Procedures Procedure Date Related Diagnosis Body Site Status EGD - Esophagogastroduodenoscopy 1 04/15/23 Completed Eye examination 2 01/06/23 Complet ed Diabetic retinal eye exam 3 09/09/[address] of entire head 4 08/31/22 Compl eted MRI of brain 5 08/31/22 Completed Chest X-ray 6 06/05/22 Completed Shave biopsy and cauterizati on of skin 7 04/16/22 Completed MRI of lumbar spine with contrast 8 01/13/21 Completed Chest X-ray 9 12/26/20 Completed Venous doppler ultrasonography 10 12/26/20 Completed Procedure 11 11/2020 Completed Chest X-ray 12 09/20/20 Completed Chest x-ray 13 06/07/19 Completed Upper GI endoscopy 14 02/25/19 Com pleted Lumbar epidural steroid injection 15 02/17/19 Completed Rotator cuff repair 16 12/01/18 Co mpleted X-ray of cervical spine 3 vi ews with extension and flexion 17 11/19/18 Complet ed Diabetic retinal eye exam 18 11/16/18 Completed Echocardiogram 19 05/25/18 Complet ed MRI of lumbar spine w/o contrast 20 03/12/18 Completed Chest X-ray 21 11/19/17 Completed Rotator cuff repair 22 09/12/16 Co mpleted Ultrasound of ankle 23 03/01/16 Co mpleted X-ray of right ankle 24 02/27/16 C ompleted Chest x-ray 25 01/29/[address] of abdomen and pelvis 10/10/14 Completed Cataract surgery bilateral 2013 Completed gallbladder removed 2010 Compl eted Gastric emptying study 28 07/04/09 Completed Left knee scope 2008 Completed CABG x 3 - Coronary artery b ypass grafts x 3 29 05/19/07 Completed Colonoscopy Completed nose and throat surgery C ompleted Procedure,peripheral venous [id number] Completed Shoulder surgery 30 Compl eted 1No endoscopic esophoageal abnormality to explain pt's dysphagia. Esophagus dilated. Normal stomach and examined duodenum. No specimens collected. 2OD: 16 OS: 19 3No diabetic rentinopathy 4Impression: No acute intracranial hemorrhage, no evidence of acute territorial infarction or other acute intracranial disease process 5Impression: No acute abnormalities 6Impression: No acute cardiopulmonary findings. No significant change in appearence of the chest. 7All w/ ED&C Left Lateral Forehead Left Upper Lateral Forehead Top of Left Ear 81. Postoperative and spondylotic change as above. See discussion for detailed [id number] analysis. 2. There is no central canal stenosis. 3. No destructive bonyprocess is identified. 9Impression: Mild left greater than right reticular opacities which may reflect pulmonary bascular congestion verus intersitial pneumonitis. 10No sonographic evidence of deep venous thrombosis 11Bursa removed from right elbow 12Impression: No acute process. 13Chronic platelike atelectasis at the lung bases. Otherwise negative study. 14Z-line regular, 40 cm from the incisors. Normal esophagus, stomach and examined duodenum. No specimens collected. 16R5-T6 16Right 17Impression: 1. There is 1 mm of anterolisthesis of C3 on C4 and C4 on C5. However, this remains intact throughout flexion and extension. 2. The C1-C2 interval is maintained throughout flexion and extension. 3. Degenerative changes as described above. 18Mild Nonprollferative diabetic retinopathy 19Normal LV size, mild concentric LVH. Mild global LV dysfunction. LVEF 40-45%. RV borderline dilatedwith moderate RV dysfunction. Mild mitral regurgitation. Normal estimated PA & RA pressures. Noprior studies for comparison. 20Impression: 1. Severe degenerative change throughout the entire lumbar region. 2. Reversal spondylolisthesis of L5 on S1. 3. Minimal grade 1 atherolisthesis of L3 on L4. 4. Significant to severe multifactorial spinal stenosis L4-L5. This is associated with severe narrowing of the neuroforamina bilaterally. 5. Moderate multfactorial narrowing of spinal canal at L3-L4. This is comined with moderate to significant narrowing of the neuroforamina bilaterally. 6. Broad-based bulging disc and degerative change throughout all remainng levels of lumbar region. 21Linear subsegmental atelectatic changes at the lung base. Otherwise negative chest 22right 236mm fluid collection adjacent to the lateral malleolus. Otherwise unremarkable study 24Negative study 25Chronic and postoperative change. No acute process 26No renal, ureteral or bladder calculi. No bowel obstruction. No free air. No appendicitis. 27bilat; right 06/2014 left 07/2014 2811/ GES: Abnormal study. Prolonged half-time of gastric emptying at 273 minutes. 29Coronary artery grafting X3 with left internal mammary artery to left anterior descending coronary artery; aorta to obtuse marginal 1 with reverse saphenous vein graft; aorta to posterior descending coronary artery with reversed saphenous vein graft. 2.Endoscopic vein harvest. 30left Vital Signs Most recent to oldest [Reference Range]: 1 Patient Weight 71.4 kg (09/29/23 2:50 PM) Temperature [36.5-37.9 DegC] 36.1 DegC *LOW* (09/29/23 2:50 PM) Heart Rate 97 bpm (09/29/23 2:50 PM) Respiratory Rate 16 br/min (09/29/23 2:50 PM) Blood Pressure 116/84mmHg (09/29/23 2:50 PM) Social History Social History Type Response Tobacco Pipe 1 Smoking Status Former Smoker, quit > 1 yr Sex Male 1Remote past Implantable Device List Procedure Provider Procedure Date Device Type Site Unknown Unknown 09/03/19 Unknown Unknown Device Identifier Serial Number Lot or Batch Number Manufacturing Date Expiration Date Distinct Identification Code MRI Safety Implantable Status Assigning Authority Unknown Unknown n/a Unknown Unknown Unknown Unknown Active Unkn own Unknown Unknown n/a Unknown Unknown Unknown Unknown Active Unkn own Unknown Unknown n/a Unknown Unknown Unknown Unknown Active Unkn own Unknown Unknown n/a Unknown Unknown Unknown Unknown Active Unkn own Unknown Unknown n/a Unknown 06/15/22 Unknown Unknown Active Unk nown FCM Outpt Note * MD Hernandez Ravishankar E: MODIFY MD Hernandez Ravishankar E: MODIFY Event Display: FCM Outpt Note Authored Date: [id number] Chief Complaint follow up on shortness of breath with activity- chronic backn pain- fused lower back pain- History of Present Illness Gonzalo is a 88 year old male coming in for shortness of breath. -Been short of breath for quite a while, trying to track it down and not sure what the true culpritmay be. This has been going on for about a year. -Had open heart surgery back in 2006 and was told prior 10 years was length of surgery. Was told would try medicine first and if not working with that then go to cath. -In to see cardiology Sep 18, nurse noticed short of breath walking down [place]. Put oxygen meter onand noticed low oxygen. -Painful for him to walk with his back, that's half of the oxygen problem according to him as that's. -Patient is not a current smoker, denies any chest pain, very little nausea if any, no fevers or chills. -Patient has the shortness of breath with exertion but not with rest. Diarrhea: -Has had diarrhea since taking the amoxicillin for UTI he had in July (repeat culture showed nogrowth per patient). Now he's back to 4 or 5 times for stools. This morning went twice and stools 3or 4 inches long. He's been taking Imodium AD. -He denies any bloody bowel movements or discoloration. -He has seen GI for this on the 22 of September, abdominal US was negative for ascites. Has orders for C diff testing but has some solid stools so they were told likely not the case. Also denies fevers or chills. Review of Systems As per HPI. Physical Exam Vitals & Measurements T:36.1C HR:97(Monitored) RR:16 BP:116/84 SpO2:94% WT:71.400kg(Dosing) WT:71.4kg Gen Appearance: Not in any acute distress, well-appearing. Heart: S1 and S2, RRR, no murmurs. No swelling at the bilateral lower extremities. Lungs: Clear to auscultation bilaterally Abd: BS+, mildly tender to palpation upper quadrants, soft. Neuro: alert, oriented, no focal deficit appreciated. Assessment/Plan 1.Shortness of breath Chronic condition Data:external notes reviewedincluding:CXR from today. _ Plan: -Patient with shortness of breath occurring for a while now with increase SoB with ambulation notedat cardiology visit earlier in the month. CXR was performed earlier today with normal read, no acute cardiopulmonary findings. Vitals stable today as well. -Given normal lung exam and CXR negative for acute process may be more cardio related. Patient was to have visit with cardiology tomorrow however incoming inclement weather has postponed this.Patient will work onrescheduling with cardiology. 2.Diarrhea Acute, not at goal of resolution. Likely related to altered gut edison; has bloating sensation as well as some residual diarrhea with some days with more formed stool. Recommended patient try simethicone OTC for bloating sensation and continue daily yogurt for good gut biome return. Daughter bought patient pedialyte, encouraged patient to keep hydrated with this so as to not deplete electrolytes. Blood work from 09/26 with normal BMP reassuring. Attestation ATTENDING PHYSICIAN ATTESTATION: I saw the patient and confirmed radford portions of the history and physical exam and agree with the resident impression and plan as above. Dr. 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 Diastolic CHF Diastolic CHF Dilated aortic root Disorder Of Vitamin B12 Dyslipidemia Dysphagia Foot drop, right foot Gastroesophageal reflux disease Gastroparesis History of lumbar fusion HTN (hypertension) Hyperlipidemia Left shoulder pain Lumbar facet arthropathy Olecranon bursitis, right elbow PAF (paroxysmal atrial fibrillation) Peripheral vertigo Pressure ulcer of left elbow, unstageable Rheumatoid arthritis of multiple joints Right-sided heart failure S/P CABG x 3 S/P orthopedic surgery, follow-up exam Sacroiliitis Skin lesion SOB (shortness of breath) Type 2 diabetes mellitus with chronic kidney disease Weight loss Historical Abdominal pain Acute bacterial bronchitis Cough Infected tick bite of thigh Nausea Right ankle pain Right calf pain SCC (squamous cell carcinoma) UTI Wart Procedure/Surgical History EGD - Esophagogastroduodenoscopy (04/15/2023)Eye examination (01/06/2023)Diabetic retinal eye exam (09/09/2022)MRI of brain (08/31/2022)CT of entire head (08/31/2022)Chest X-ray (06/05/2022)Shave biopsy and cauterization of skin (04/16/2022)MRI of lumbar spine with contrast (01/13/2021)Venous doppler ultrasonography (12/26/2020)Chest X- ray (12/26/2020)Procedure (11/2020)Chest X-ray (09/20/2020)Chest x-ray (06/07/2019)Upper GI endoscopy (02/25/2019)Lumbar epidural steroid injection (02/17/2019)Rotator cuff repair (12/01/2018)X-ray of cervical s pine 3 views with extension and flexion (11/19/2018)Diabetic retinal eye exam (11/16/2018)Echocardiogram (05/25/2018)MRI of lumbar spine w/o contrast (03/12/2018)Chest X-ray (11/19/2017)Rotator cuff repair (09/12/2016)Ultrasound of ankle (03/01/2016)X-ray of right ankle ( 016)Chest x-ray (01/29/2016)CT of abdomen and pelvis (10/10/2014)Cataract surgery bilateral (2013)gallbladder removed (2010)Gastric emptying study (07/04/2009)Left knee scope (2008)CABG x 3 - Coronary artery bypass grafts x 3 (05/19/2007)Procedure,peripheral venous [id number] surgeryse and throat surgery Medications amLODIPine(amLODIPine 5 mg oral tablet), 5 mg= 1 tab, PO, Daily, 11 refills apixaban(Eliquis 5 mg oral tablet), 1 tab, PO, bid aspirin(aspirin 81 mg oral tablet), 81 mg= 1 tab, PO, Daily cholecalciferol(Vitamin D3) diabetes supplies(BD Test Strips 50 ct), See Instructions, 1 refills diabetes supplies(glucose monitor), 1 each, N/A, ac and hs folic acid(folic acid 1 mg oral tablet), See Instructions furosemide(Lasix 20 mg oral tablet), 20 mg= 1 tab, PO, Daily, 3 refills insulin glargine(Lantus Solostar Pen 100 units/mL subcutaneous solution), 12 unit, subQ, Daily, 3 refills isosorbide mononitrate(Imdur 30 mg oral tablet, extended release), 30 mg= 1 tab, PO, qAM, 3 refills loratadine(Claritin 10 mg oral tablet), 10 mg= 1 tab, PO, Daily, PRN methotrexate(methotrexate 2.5 mg oral tablet), 15 mg= 6 tab, PO, q7days metoprolol(Metoprolol Succinate ER 25 mg oral tablet, extended release), 25 mg= 1 tab, PO, Daily, 3refills multivitamin(Super B Complex oral tablet), 1 tab, PO, Daily multivitamin with minerals(PreserVision AREDS 2 oral capsule) nitroglycerin(nitroglycerin 0.4 mg sublingual tablet), See Instructions olmesartan(olmesartan 5 mg oral tablet), 1 tab, PO, Daily pantoprazole(pantoprazole 40 mg oral delayed release tablet), 40 mg= 1 tab, PO, bid, 5 refills phenazopyridine(Pyridium 100 mg oral tablet), 100 mg= 1 tab, PO, tid, PRN predniSONE(predniSONE 5 mg oral tablet), 5 mg= 1 tab, PO, Daily rosuvastatin(rosuvastatin 10 mg oral tablet), 10 mg= 1 tab, PO, Daily syringe needles(BD needle Ultra-Fine Pen Aneta 32G x 4mm), See Instructions ubiquinone(Coenzyme Q10), 100 mg, PO, qhs unlisted medication(FreeStyle Lite Test In Vitro Strip), See Instructions unlisted medication(FreeStyle Lancets Miscellaneous), See Instructions Allergies Floxinitchy Lescolachey muscles, lescol Lipitorchest pain Maxzideitching Motrinabdominal pain, itching Pravacholaches Zantacexcess gas, abdominal pain Zetiaaches Zocoraches atorvastatinUnknown cephalexinnausea, diarrhea doxycyclineupset stomach fluvastatinUnknown simvastatinUnknown Social History Smoking Status Former Smoker, quit > 1 yr Alcohol - No Risk Use:Past - Comments: Rare remote use. Employment/School Status:Retired Exercise - Regular exercise Times per week:3-4 times/week Exercise type:Walking Home/Environment Lives with:Spouse Living situation:Home/Independent Sexual - No Risk Substance Abuse - Denies Substance Abuse Tobacco - Denies Tobacco Use Type:Pipe - Comments: Remote past Family History Cancer: Sister. Stroke: Father. Health Status Family Member(s) Family Member(s) Relationship: Mother, Name: Mom, Age: 97 Years, Cause: Age Immunizations Vaccine Date Status SARS-CoV-2 (COVID-19) mRNA-1273 vaccine 11/02/2020 Recorded Comments : 2021-11-12: Historical information-source unspecified SARS-CoV-2 (COVID-19) mRNA-1273 vaccine 10/05/2020 Recorded Comments : 2021-11-12: Historical information-source unspecified zoster vaccine, inactivated 11/10/2018 Recorded Comments : 2020-01-03: Historical information-source unspecified tetanus toxoids-diphtheria, Td (Adult) 08/07/2018 Recorded zoster vaccine, inactivated 07/31/2018 Recorded zoster vaccine, inactivated 11/10/2017 Recorded Comments : 2020-01-03: Historical information-source unspecified pneumococcal 13-valent vaccine 04/19/2015 Given influenza virus vaccine, inactivated 06/06/2014 Recorded influenza virus vaccine, inactivated 05/13/2013 Given influenza virus vaccine, inactivated 05/04/2012 Given pneumococcal 23-valent vaccine 05/29/2010 Recorded Comments : 2020-01-03: Historical information-source unspecified zoster vaccine live 10/07/2008 Recorded tetanus toxoids-diphtheria, Td (Adult) 05/06/2008 Recorded pneumococcal 7-valent vaccine 08/06/2005 Recorded Comments : 2020-01-03: Historical information-source unspecified pneumococcal 23-valent vaccine 06/20/1999 Recorded Recommendations Health Maintenance Pending(in the next year) OverDue Adult Influenza Vaccine due02/14/23and every 1year Medicare Annual Wellness Visit due06/05/23and every 1year Due Adult COVID-19 Vaccination due09/29/23Unknown Frequency Adult Social Determinants of Health Screening due09/29/23Unknown Frequency Due In Future Diabetic Eye Exam not due until01/07/24and every 366day Diabetes Management A1c not due until07/14/24and every 366day Satisfied(in the past 1 year) Satisfied Body Mass Index on08/22/23.Satisfied by MANJU Flores Vanessa T Diabetes Management A1c on07/14/23.Satisfied by Contributor_system, [email or web address] Lipid Screening on03/18/23.Satisfied by Contributor_system, [email or web address] Electronic Signature on File CC: Wai Medel DO [address] [facility] [address] [id number] CC: Ashlee Akhtar PA-C [address] [id number] Electronically Reviewed/Signed by: Bill Velazco DO Author Signature Dt/Tm:09/29/2023 03:49 PM Resident Department of Family Medicine Electronically Reviewed/Signed by: Andrea Hernandez MD Cosigner Signature Dt/Tm: 09/29/2023 03:54PM Department of Family Medicine [place] Patient Care team information Care Team Personnel Name: DO Kraft Franklin J Position: Physician - Family Med Member Role: Primary Care Provider Address: Address: [facility] [place] [address] [place] Name: DO Melton Kristen M Position: Physician - Family Med Member Role: Lifetime Relationship Address: Address: [address] [place] [address] [place] Name: MD Hernandez Ravishankar E Position: Physician Member Role: Lifetime Relationship Address: Address: [address] [place] [address] [place] Care Team Related Persons Name: RAGINI VIGIL Name: MERNA CHOWDARY Address: [address] [phone]
--- OUTSIDE RECORDS SUMMARY | 2023-10-12 22:19 | External Medical Summary | Continuity of Care Document ---
Author Name Unknown Organization [place] [id number] [address] [place] [id number] Care Team Providers Care Draw Hand Name Role Phone Carlos Kraft Kylee Primary Care Physician [phone] Encounter [facility] [id number] Date(s): 10/01/23 - 10/01/23 [facility] [address] [facility] [address] [address] [phone] Encounter Diagnosis Unspecified diastolic (congestive) heart failure(Final) - Atherosclerotic heart disease of [place] coronary artery without angina pectoris (Final) - Other hyperlipidemia(Final) - Essential (primary) hypertension(Final) - Paroxysmal atrial fibrillation(Final) - Right heart failure, unspecified(Final) - Presence of aortocoronary bypass graft(Final) - Shortness of breath(Final) - Diarrhea, unspecified(Final) - Anemia(Discharge Diagnosis) - 10/03/23 Discharge Disposition: Home or Self Care Attending Physician: DO Medel Jason D Allergies, Adverse [...] Can%27t take statins- muscle aches and pruritis Immunizations Given and Recorded Vaccine Date Status [...] Daily, Disp# 30 tab, Refills: 11, Pharmacy: [facility] Start Date: 04/01/23 Status: Ordered aspirin 81 mg oral tablet Start: 04/03/12 14:49:00, 1 tab, PO, Daily Start Date: 04/03/12 Status: Ordered BD needle Ultra-Fine Pen Aneta 32G x 4mm Start: 11/18/22 12:18:00 EDT, See Instructions, Disp# 100 each, Use as directed with insulin. Max 1/day. Use new pen needle with each injection., Note to Pharmacy: E11.9, Pharmacy: [facility]) Start Date: 11/18/22 Status: Ordered BD Test Strips 50 ct Start: 10/07/22 8:37:00 EST, See Instructions, Disp# 100 each, Refills: 1, check surgars BID, Note to Pharmacy: [facility] G2 test strips, Pharmacy: [facility]) Start Date: 10/07/22 Status: Ordered Claritin 10 [...] bid, Disp# 180 tab, Refills: 3, Pharmacy: [facility] Start Date: 09/15/23 Status: Ordered folic acid 1 mg oral tablet Start: 08/05/22 14:11:00 EST, See Instructions, Disp# 90 tab, Refills: 0, TAKE ONE TABLET BY MOUTH DAILY, Pharmacy: [facility] Start Date: 08/05/22 Status: Ordered FreeStyle Lancets Miscellaneous Start: 04/17/22 9:41:00 EDT, FreeStyle Lancets Miscellaneous, See Instructions, Disp# 100 unknown unit, Refills: 0, check blood sugar twice daily, Pharmacy [id number] Start Date: 04/17/22 Status: Ordered FreeStyle Lite Test In Vitro Strip Start: 07/15/22 15:07:00 EST, FreeStyle Lite Test In Vitro Strip, See Instructions, Disp# 50 unknown unit, Refills: 3, Test blood sugar twice a day, Pharmacy [id number] Start Date: 07/15/22 Status: Ordered glucose monitor Start: 07/09/22 12:34:00 EST, 1 each, N/A, ac and hs, Disp# 1 each, E11.9 diabetes, Pharmacy: [id number] Start Date: 07/09/22 Status: Ordered Imdur 30 mg oral tablet, extended release Start: 09/18/23 11:38:00 EST, 1 tab, PO, qAM, Disp# 90 tab, Refills: 3, Pharmacy: [facility] ([facility] Start Date: 09/18/23 Status: Ordered Lantus Solostar Pen 100 units/mL subcutaneous solution Start: 11/18/22 12:19:00 EDT, 12 unit =, subQ, Daily, Disp# 10 mL, Refills: 3, Pharmacy: [facility]) Start Date: 11/18/22 Stop Date: 03/18/23 Status: Ordered Lasix 20 mg oral tablet Start: 09/18/23 11:38:00 EST, 1 tab, PO, Daily, Disp# 90 tab, Refills: 3, Pharmacy: [facility] Start Date: 09/18/23 Status: Ordered methotrexate 2.5 [...] pain. Call 911 if no relief!, Pharmacy: [facility]) Start Date: 09/18/23 Status: Ordered olmesartan 5 mg oral tablet Start: 08/25/23 11:27:00 EST, 1 tab, PO, Daily, Disp# 90 tab, Refills: 3, Pharmacy: [facility] Start Date: 08/25/23 Status: Ordered pantoprazole 40 mg oral delayed release tablet Start: 03/13/23 11:50:00 EDT, 1 tab, PO, bid, Disp# 60 tab, Refills: 5, Pharmacy: [facility]) Start Date: 03/13/23 Stop Date: 09/09/23 Status: [...] PRN: as needed for urinary discomfort, [facility]) Start Date: 09/04/23 Stop Date: 09/09/23 Status: Ordered rosuvastatin 10 mg oral tablet Start: 08/22/23 13:01:00 EST, 1 tab, PO, Daily Start Date: 08/22/23 Status: Ordered Slow Fe (as elemental iron) 45 mg oral tablet, extended release Start: 10/03/23 16:36:00 EST, 1 tab, PO, Daily, Disp# 90 tab, Refills: 1, [facility]) Start Date: 10/03/23 Stop Date: 03/31/24 Status: Ordered Super B Complex oral tablet [...] 03/18/22 cardiology note 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 Leach MD 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 completed 08/02/21 Diagnosis Diagnosis Type Effective Dates Health Status Clini yin Service Informant Anemia Discharge Diagnosis 10/03/23 Non-Specified Procedures Procedure Date Related Diagnosis Body Site Status EGD - Esophagogastroduodenoscopy 1 04/15/23 Completed Eye examination 2 01/06/23 [facility] ed Diabetic retinal eye exam 3 09/09/22 [...] exam 18 11/16/18 Completed Echocardiogram 19 05/25/18 [facility] ed MRI of lumbar spine w/o contrast 20 03/12/18 Completed Chest X-ray 21 11/19/17 Completed Rotator cuff repair 22 09/12/16 Co mpleted Ultrasound of ankle 23 03/01/16 Co mpleted X-ray of right ankle 24 02/27/16 C ompleted Chest x-ray 25 01/29/[address] of abdomen and pelvis 26 10/10/14 Completed Cataract surgery bilateral 2013 Completed gallbladder removed 2010 Compl eted Gastric emptying study 28 07/04/09 Completed Left knee scope 2008 Completed CABG x 3 - Coronary artery b ypass grafts x 3 29 05/19/07 Completed Colonoscopy Completed nose and throat surgery C ompleted Procedure,peripheral venous [id number] Completed Shoulder surgery 30 Compl eted 1No [...] change as above. See discussion for detailed [id number] analysis. 2. There is no central canal [...] stomach and examined duodenum. No specimens collected. [id number] 16Right 17Impression: 1. There is 1 mm [...] saphenous vein graft. 2.Endoscopic vein harvest. 30left Results Laboratory List Name Date Complete Blood Count (CBC) 10/01/23 Iron Profile (IRON PROFILE) 10/01/23 Most recent to oldest [Reference Range]: 1 MPV [9.0-12.2 fL] 8.8 fL 1 *LOW* (10/01/23 11:17 AM) RDW [11.5-14.2 %] 16.9 % *HI* (10/01/23 11:17 AM) Iron [50-158 ug/dL] 56 ug/dL (10/01/23 11:17 AM) Hct [39-48 %] 34.6 % *LOW* (10/01/23 11:17 AM) Hgb [13.0-17.0 g/dL] 10.6 g/dL *LOW* (10/01/23 11:17 AM) MCH [28-33 pg] 28.5 pg (10/01/23 11:17 AM) MCHC [32-36 g/dL] 30.6 g/dL *LOW* (10/01/23 11:17 AM) MCV [81-96 fL] 93.0 fL (10/01/23 11:17 AM) Plts [150-350 K/uL] 240 K/uL (10/01/23 11:17 AM) RBC [4.40-5.60 M/uL] 3.72 M/uL *LOW* (10/01/23 11:17 AM) Fe Sat [14-50 %] 23 % (10/01/23 11:17 AM) Total IBC [250-400 ug/dL] 241 ug/dL *LOW* (10/01/23 11:17 AM) Transferrin [200-360 mg/dL] 204 mg/dL (10/01/23 11:17 AM) WBC [4.0-10.4 K/uL] 7.55 K/uL (10/01/23 11:17 AM) 1Result Comment: Testing Performed By: Dept of Pathology [facility] [address], [address], [place] [address] Social History Social History Type Response Tobacco [...] Unknown 06/15/22 Unknown Unknown Active Unk nown Patient Care team information Care Team Personnel Name: DO Kraft Franklin J Position: Physician - Family Med Member Role: Primary Care Provider Address: Address: [address] [address] [place] Name: DO Melton Kristen M Position: Physician - Family Med Member Role: Lifetime Relationship Address: Address: [address] [place] [phone] [place] Name: MD Hernandez Ravishankar E Position: Physician Member Role: Lifetime Relationship Address: Address: [address] [place] [id number] [place] Care Team Related Persons Name: RAGINI VIGIL Name: MERNA CHOWDARY Address: [address], [phone]
[2023-10-12] MEDS: ACETAMINOPHEN 1,000 MG/100 ML VIAL IV STA (23:16)
--- NOTE | 2023-10-12 23:22 | History & Physical Report ---
Date of Service October 12, 2023 Assessment & Plan (1) Lower GI bleed: (2) C. 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 except essential medications Pantoprazole 40 mg changed from by mouth twice daily to IV twice daily Zofran 4 mg IV every 6 hours as needed NSS plus KCl 20 mEq at 80 mL/h Consult gastroenterology Atrial fibrillation/CAD/overlapping stents x 2 in left circumflex last week- Patient had been on aspirin and Eliquis prior to catheterization on 10/09/23. Plavix had been added until , where the plan was for aspirin to be discontinued, and patient would continue on Plavix and Eliquis. All will be held until GI and cardiology assessments Blood pressure is in low normal range at this time, and his amlodipine, isosorbide mononitrate, metoprolol succinate and telmisartan will be held C. difficile colitis- Patient reports having had diarrhea since he was on 1 week of amoxicillin 09/01/2023. C. difficile toxin testing added is gene and antigen positive Placed on C. difficile precautions Start vancomycin 125 mg p.o. 4 times daily Unclear how much the GI bleeding is related to C. difficile colitis, however, the addition of Plavix last week for DAPT, certainly had to contribute Rheumatoid arthritis- On methotrexate 15 mg by mouth weekly Holding prednisone 5 mg every morning as noted above If RA flares, or placed on IV steroids History of Present Illness Chief Complaint: The patient presents to the emergency department with rectal bleeding over the past 24 hours, initially noted on toilet paper, and then daughter notes in the emergency department was in the bowl as well Primary Care Provider: Carlos Kraft DO The patient is an 88-year-old male with a past medical history including lumbar stenosis with neurogenic claudication, atrial fibrillation with RVR, demand ischemia, idiopathic polyneuropathy, BPH with LUTS, RA, postlaminectomy syndrome, CAD, sleep apnea, diabetes mellitus type 2 and GERD. The patient has had diarrhea since about September 01, after he completed a week of amoxicillin for urinary tract infection. The patient had been at [facility] on 10/09/2023, where he underwent a cardiac catheterization, with 2 overlapping stents placed in the left circumflex artery. He had been on aspirin for CAD prevention, and Eliquis for atrial fibrillation, and at that time had Plavix added for 7 days, with plans to change to Plavix plus Eliquis without aspirin on 10/16/2023. He was also started on tamsulosin 2 weeks ago. He continues on prednisone for his rheumatoid arthritis. Patient noted blood on toilet paper, and daughter noted blood in the commode while in the ED, patient was referred for evaluation when hemoglobin returned at 9.9, compared to 11.7 at last testing Allergies Allergy/AdvReac Type Severity Reaction Status Date / Time No Known Allergies Allergy Mild NONE Verified 10/12/23 21:05 Home Medications Medication Instructions Recorded Confirmed Type B-complex with vitamin C (Super B 1 tab PO QAM 08/07/18 10/12/23 History Complex-Vitamin C tablet) aspirin 81 mg tablet,delayed 81 mg PO QPM 08/07/18 10/12/23 History release cholecalciferol (vitamin D3) 25 2,000 unit PO QAM 08/07/18 10/12/23 History mcg (1,000 unit) tablet (Vitamin D3) coenzyme Q10 100 mg capsule 100 mg PO QPM 08/07/18 10/12/23 History (CoQ-10) folic acid 1 mg tablet 1 mg PO QPM 08/07/18 10/12/23 History methotrexate sodium 2.5 mg tablet 15 mg PO WK 08/07/18 10/12/23 History prednisone 5 mg tablet 5 mg PO QAM 08/07/18 10/12/23 History apixaban 5 mg tablet (Eliquis) 5 mg PO BID 09/04/18 10/12/23 History pantoprazole 40 mg tablet,delayed 40 mg PO BID 10/24/20 10/12/23 History release (Protonix) vit C 250 mg-vit E 90 mg-zinc 40 1 tab PO BID 10/24/20 10/12/23 History mg-copper 1 [id number] capsule (PreserVision AREDS-2) blood sugar diagnostic (FreeStyle #100 ea 01/16/21 10/13/23 Rx Lite Strips) blood-glucose meter (FreeStyle #1 ea 01/16/21 10/13/23 Rx [place] Lite kit) lancets 28 gauge (FreeStyle #100 ea 01/16/21 10/13/23 Rx Lancets) pen needle, diabetic 32 gauge x #100 ea 01/16/21 10/13/23 Rx 32" metoprolol succinate 25 mg 25 mg PO QPM 08/08/21 10/12/23 History tablet,extended release 24 hr cetirizine 10 mg capsule (Allergy 10 mg PO QPM 12/21/21 10/12/23 History Relief (cetirizine)) olmesartan 20 mg tablet (Benicar) 5 mg PO QAM 12/21/21 10/12/23 History rosuvastatin 10 mg tablet (Crestor) 10 mg PO QPM 12/21/21 10/12/23 History insulin glargine 100 unit/mL (3 15 unit subcut HS 12/11/22 10/12/23 History mL) subcutaneous pen (Lantus Solostar U-100 Insulin) amlodipine 5 mg tablet 5 mg PO QPM 04/08/23 10/12/23 History tamsulosin 0.4 mg capsule 0.4 mg PO DAILY #30 caps 09/22/23 10/12/23 Rx clopidogrel 75 mg tablet 75 mg PO DAILY 10/12/23 10/12/23 History isosorbide mononitrate 30 mg 30 mg PO DAILY 10/12/23 10/12/23 History tablet,extended release 24 hr Past Med/Surg History Medical History Belching Postlaminectomy syndrome of lumbosacral region History of COVID-19 Heart failure Vertigo Asymptomatic carotid artery stenosis Osteoarthritis, shoulder GERD (gastroesophageal reflux disease) Benign prostatic hyperplasia with urinary obstruction A-fib Chronic back pain Sleep apnea Myocardial Infarction Hyperlipidemia Type 2 diabetes mellitus Rheumatoid arthritis CAD (coronary artery disease) Hypertension Surgical History History of reverse total replacement of right shoulder joint History of elbow surgery Nausea and vomiting after administration of anesthetic agent History of cardiac cath Status post lumbar spinal fusion History of esophagogastroduodenoscopy (EGD) History of colonoscopy History of tooth extraction S/P left knee arthroscopy H/O repair of right rotator cuff H/O repair of left rotator cuff History of cataract extraction History of cholecystectomy Hx of CABG Family History Sister Family history of diabetes mellitus Cancer Father Hypertension Other No family history of adverse response to anesthesia Social History Smoking Status: Former smoker Tobacco Type: Pipe Cigarettes Per Day: Quit early ; Second Hand Exposure: No; Do You Dip or Chew Tobacco: No; Hx Alcohol Use: No Hx Substance Use: No Preferred Language: Mongolian Communication Ability: Effective Visual Impairment: Limited Hearing Ability: Normal 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 Beliefs That Will Affect Care: None marital status: Current Living Situation: Spouse current occupational status: retired Other Information That Helps Us Care for You: No Feels Safe at Home: Yes Safety Concerns: Feels Safe At This Time Assistive Devices: Walker Assistive Devices Comment: Patient states that he has a walker but doesn't use it like he should Review of Systems Review of Systems: The patient denies chest pain, palpitations, shortness of breath, dyspnea on exertion, lower extremity swelling, sore throat, fevers, chills, sweats, nausea, vomiting, diarrhea , constipation, abdominal pain, pelvic pain, blood in urine, dysuria, urinary frequency or urgency, lightheadedness, dizziness, headache, memory loss, loss of consciousness, rash, abnormal bruising or bleeding, imbalance, focal or generalized weakness, numbness or tingling in arms or legs, generalized arthralgias or myalgias, back or neck pain, or night sweats. The review of systems is otherwise negative other than for that already noted above, and at least 10 systems have been reviewed. Physical Exam Physical Exam: The patient is awake, alert and oriented 3, well developed and well nourished, normocephalic and atraumatic, lying in bed and in no acute distress. HEENT--PERRL, EOMI, mucous membranes and oropharynx normal Neck--supple. No JVD. No bruits. Thyroid normal, trachea midline, no adenopathy. Heart--normal S1 and S2. No murmurs, rubs or gallops. Lungs--clear bilaterally, no respiratory distress, no accessory muscle use. Abdomen--normal bowel sounds and soft. Nontender. Nondistended, no hernias or masses, no organomegaly. Extremities--No edema. Dermatologic--normal skin turgor, normal color, no abnormal lymph nodes, no rash. Neurologic--cranial nerves II through XII grossly intact. Rheumatologic--normal range of motion. Psychiatric--normal affect. Results & Data Results & Data Vital Signs (Past 12 Hours) Vital Signs Temp Pulse Resp BP Pulse Ox O2 Del Method 10/12/23 22:30 117/75 10/12/23 22:30 92 H 24 10/12/23 22:20 93 H 10/12/23 22:10 91 H 10/12/23 22:00 129/69 10/12/23 22:00 95 H 10/12/23 21:50 91 H 10/12/23 21:40 93 H 24 10/12/23 21:30 93 H 24 10/12/23 21:30 139/75 10/12/23 21:10 96 H 20 10/12/23 21:00 119/77 10/12/23 21:00 95 H 10/12/23 20:56 93 H 23 10/12/23 20:56 Room Air 10/12/23 20:55 93 H 10/12/23 20:19 36.6 C 105 H 17 118/66 95 Room Air Laboratory Results Laboratory Results WBC 7.03 K/ul (4.8-10.8) 10/12/23 20:50 RBC 3.52 M/uL (4.70-6.10) L 10/12/23 20:50 Hgb 9.7 g/dl (14.0-18.0) L 10/13/23 02:32 Hct 32.1 % (42.0-52.0) L 10/13/23 02:32 MCV 92.0 fL (80.0-100.0) 10/12/23 20:50 MCH 28.1 pg (25.0-34.0) 10/12/23 20:50 MCHC 30.6 g/dL (32.0-36.0) L 10/12/23 20:50 RDW Std Deviation 56.8 fL (36.4-46.3) H 10/12/23 20:50 RDW Coeff of Ari 17.4 % (11.5-14.5) H 10/12/23 20:50 Plt Count 166 K/uL (130-400) 10/12/23 20:50 MPV 9.1 fL (9.4-12.4) L 10/12/23 20:50 PT 12.1 Seconds (9.0-12.0) H 10/12/23 20:50 INR 1.1 (0.9-1.1) 10/12/23 20:50 APTT 29 Seconds (21-31) 10/12/23 20:50 PTT Ratio 1.0 10/12/23 20:50 Sodium 138 mmol/L (136-145) 10/13/23 02:32 Potassium 4.0 mmol/L (3.5-5.1) 10/13/23 02:32 Chloride 104 mmol/L (98-107) 10/13/23 02:32 Carbon Dioxide 28 mmol/L (21-32) 10/13/23 02:32 Anion Gap 6 (3-11) 10/13/23 02:32 BUN 16 mg/dl (6-23) 10/13/23 02:32 Creatinine 1.21 mg/dl (0.6-1.4) 10/13/23 02:32 Est Cr Clr Drug Dosing 37.3 ml/min 10/13/23 02:32 Est GFR ( Amer) 61.1 ml/min 10/13/23 02:32 Est GFR (Non-Af Amer) 52.8 ml/min 10/13/23 02:32 BUN/Creatinine Ratio 13.2 (10-20) 10/13/23 02:32 Glucose 147 mg/dl (70-99(Fasting)) H 10/13/23 02:32 Calcium 8.4 mg/dl (8.6-10.3) L 10/13/23 02:32 Phosphorus 3.2 mg/dl (2.5-4.9) 10/13/23 02:32 Magnesium 2.1 mg/dl (1.7-2.4) 10/13/23 02:32 Total Bilirubin 0.5 mg/dl (0.2-1.0) 10/12/23 20:50 AST 18 U/L (13-39) 10/12/23 20:50 ALT 15 U/L (7-52) 10/12/23 20:50 Alkaline Phosphatase 72 U/L (34-104) 10/12/23 20:50 Troponin I High Sens 10.0 pg/ml (0-20) 10/12/23 20:50 Total Protein 6.2 gm/dl (6.0-8.3) 10/12/23 20:50 Albumin 3.3 gm/dl (3.4-5.0) L 10/13/23 02:32 Globulin 2.8 gm/dl (2.5-4.0) 10/12/23 20:50 Albumin/Globulin Ratio 1.2 (0.9-2) 10/12/23 20:50 POC Stool Occult Blood Positive (Negative) A 10/12/23 22:22 Stl C. diff Tox B Gene Positive Cdiff Gene (Neg) H 10/13/23 01:16 Stl C.difficile Tox A&B Positive Cdiff Toxin (Negative) A* 10/13/23 01:16 Blood Type O Negative 10/12/23 21:01 Antibody Screen NEGATIVE 10/12/23 21:01 Code Status & VTE Plan Code Status Full code VTE Prophylaxis Plan VTE Prophylaxis will be ordered: Yes PG Care Time/CCT Total # of Minutes Spent Total Time Spent with Patient: Total time spent is greater than 50% in coordination of care (as documented) at patient's floor/unit and/or counseling patient: Coding Level of Care Code 01919 INT INP/OBS CARE 3/75MIN Diagnoses Lower GI bleed K92.2 C. 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
[2023-10-12] MEDS: NSS + 20MEQ KCL 20 MEQ/1,000 ML BAG IV SCH (23:32)
[2023-10-12] MEDS: PANTOprazole 40 MG in SYRINGE 0 ML IV ONE (23:56)
[2023-10-13] MEDS ORDERED: CARBOHYDRATES FOR HYPOGLYCEMIA PO PRN (02:17)
[2023-10-13] MEDS ORDERED: GLUCOSE 10 TAB/TUBE PO PRN (02:17)
[2023-10-13] MEDS ORDERED: ONDANSETRON INJ 2 MG/ML 2 ML VIAL IV PRN (02:17)
[2023-10-13] MEDS ORDERED: DEXTROSE 50% 50 ML SYRINGE IV PRN (02:17)
[2023-10-13] MEDS ORDERED: GLUCOSE 40% GEL 15 GM TUBE PO PRN (02:17)
[2023-10-13] MEDS ORDERED: GLUCAGON FOR INJ 1 MG VIAL SQ PRN (02:17)
[2023-10-13 02:30] LABS: Cdiff Antigen Positive; Cdiff Toxin B Gene (2yr or >) Positive Cdiff Gene (Neg)
[2023-10-13 02:32] LABS: Cdiff Toxin A+B Positive Cdiff Toxin (Negative)
[2023-10-13 03:30] LABS: Hematocrit (blood only) 32.1 % (42.0-52.0); Hemoglobin 9.7 g/dl (14.0-18.0)
[2023-10-13] MEDS: VANCOMYCIN HCL 125 MG/2.5ML SOLN PO STA (03:39)
[2023-10-13] MEDS: CHERRY SYRUP 5 ML UDP PO STA (03:39)
[2023-10-13 03:46] LABS: Albumin Level 3.3 gm/dl (3.4-5.0); BUN Creatinine Ratio 13.2 (10-20); Calcium 8.4 mg/dl (8.6-10.3); Creatinine Clr Calc Pharmacy 37.3 ml/min; Est GFR (African American) 61.1 ml/min; Est GFR (Non-African American) 52.8 ml/min; Magnesium 2.1 mg/dl (1.7-2.4); Phosphorus 3.2 mg/dl (2.5-4.9)
[2023-10-13] MEDS: CHERRY SYRUP 5 ML UDP PO SCH (06:47)
[2023-10-13] MEDS: VANCOMYCIN HCL 125 MG/2.5ML SOLN PO SCH (06:47)
[2023-10-13] MEDS: INSULIN ASPART PER UNIT CHARGE SC SCH ×2 (06:48→16:53)
[2023-10-13 07:43] LABS: Estimated Average Glucose 203 mg/dl; Hemoglobin A1C 8.7 % (4.5-5.6)
[2023-10-13 08:49] LABS: Hematocrit (blood only) 29.9 % (42.0-52.0); Hemoglobin 9.2 g/dl (14.0-18.0)
[2023-10-13] MEDS: PANTOprazole 40 MG in SYRINGE 0 ML IV SCH (09:00)
--- NOTE | 2023-10-13 10:16 | Gastrointestinal Consultation ---
Date of Consultation October 13, 2023 Assessment & Plan (1) C. difficile colitis: (2) Lower GI bleed: (3) Presence of stent in left circumflex coronary artery: Plan Patient is a 88 y.o. male with a history of AFib and CAD s/p PCI on 10/09 admitted with persistent diarrhea and new onset of rectal bleeding in the setting of anticoagulation use. -Given recent stent placement, would defer to cardiology in regard to anticoagulation management. -Continue Vancomycin 125 mg QID x 10 days. -Transfuse per protocol if needed. -Supportive care per primary team. -No plan for invasive GI work up. Supervising Physician Co-Signing Physician Notes Agree with AIMEE Morgan as above Abd: Soft, NT, ND, +BS Continue current therapy and supportive care No plans for invasive GI workup at this time History of Present Illness Reason for Consultation: LGIB Requesting Physician: Dr. Mckeon Attending Physician: Abdi Jonas MD History of Present Illness Patient is a 88 y.o. male with a history of A Fib/CAD status post cardiac cath with placement of overlapping stents x 2 in [place] [facility] [place]. He was started on combination ASA/Plavix/Eliquis post procedure and developed loose stools with associated bright red blood in stool with each bowel movement. Although the bleeding began just CUTTER ALUMINUM SHEET, he has been noted to have diarrhea for approximately 6 weeks ever since being treated with oral antibiotics for a UTI in August. On arrival, stool was tested and he was found to be positive for C Difficile infection. H&H has been trending downward and was noted to be 9.2/29.9 this morning. Anticoagulation is being held by primary team and he was started on Vancomycin 125 mg QID. Symptomatically, he endorses some abdominal pain but no nausea or vomiting. No fevers/chills. Allergies Allergy/AdvReac Type Severity Reaction Status Date / Time No Known Allergies Allergy Mild NONE Verified 10/12/23 21:05 Home Medications Medication Instructions Recorded Confirmed Type B-complex with vitamin C (Super B 1 tab PO QAM 08/07/18 10/12/23 History Complex-Vitamin C tablet) aspirin 81 mg tablet,delayed 81 mg PO QPM 08/07/18 10/12/23 History release cholecalciferol (vitamin D3) 25 2,000 unit PO QAM 08/07/18 10/12/23 History mcg (1,000 unit) tablet (Vitamin D3) coenzyme Q10 100 mg capsule 100 mg PO QPM 08/07/18 10/12/23 History (CoQ-10) folic acid 1 mg tablet 1 mg PO QPM 08/07/18 10/12/23 History methotrexate sodium 2.5 mg tablet 15 mg PO WK 08/07/18 10/12/23 History prednisone 5 mg tablet 5 mg PO QAM 08/07/18 10/12/23 History apixaban 5 mg tablet (Eliquis) 5 mg PO BID 09/04/18 10/12/23 History pantoprazole 40 mg tablet,delayed 40 mg PO BID 10/24/20 10/12/23 History release (Protonix) vit C 250 mg-vit E 90 mg-zinc 40 1 tab PO BID 10/24/20 10/12/23 History mg-copper 1 [id number] capsule (PreserVision AREDS-2) blood sugar diagnostic (FreeStyle #100 ea 01/16/21 10/13/23 Rx Lite Strips) blood-glucose meter (FreeStyle #1 ea 01/16/21 10/13/23 Rx [place] Lite kit) lancets 28 gauge (FreeStyle #100 ea 01/16/21 10/13/23 Rx Lancets) pen needle, diabetic 32 gauge x #100 ea 01/16/21 10/13/23 Rx 5/32" metoprolol succinate 25 mg 25 mg PO QPM 08/08/21 10/12/23 History tablet,extended release 24 hr cetirizine 10 mg capsule (Allergy 10 mg PO QPM 12/21/21 10/12/23 History Relief (cetirizine)) olmesartan 20 mg tablet (Benicar) 5 mg PO QAM 12/21/21 10/12/23 History rosuvastatin 10 mg tablet (Crestor) 10 mg PO QPM 12/21/21 10/12/23 History insulin glargine 100 unit/mL (3 15 unit subcut HS 12/11/22 10/12/23 History mL) subcutaneous pen (Lantus Solostar U-100 Insulin) amlodipine 5 mg tablet 5 mg PO QPM 04/08/23 10/12/23 History tamsulosin 0.4 mg capsule 0.4 mg PO DAILY #30 caps 09/22/23 10/12/23 Rx clopidogrel 75 mg tablet 75 mg PO DAILY 10/12/23 10/12/23 History isosorbide mononitrate 30 mg 30 mg PO DAILY 10/12/23 10/12/23 History tablet,extended release 24 hr Patient History Medical History Belching reason for upcoming procedure with periodic abdominal pain -- will happen randomly and worse after eating Postlaminectomy syndrome of lumbosacral region History of COVID-19 01/2022 ([facility])- weakness, fatigue, fever, nasal congestion and sore throat > resolved Heart failure pt unaware Vertigo hx - last episode 1+ months ago. Asymptomatic carotid artery stenosis Hx noted per records > no hemodynamically significant ICA stenosis per 03/2021 carotid doppler Osteoarthritis, shoulder GERD (gastroesophageal reflux disease) Benign prostatic hyperplasia with urinary obstruction Hx A-fib Paroxysmal, follows with Dr. Medel Chronic back pain Sleep apnea Could not tolerate device Myocardial Infarction CABG x3 (2006) Hyperlipidemia Type 2 diabetes mellitus IDDM Rheumatoid arthritis CAD (coronary artery disease) CABG x3 (2006) Hypertension Surgical History History of reverse total replacement of right shoulder joint Right reverse TSA (02/22/22): LMA#4 iGel + PNB at [facility]. No issues noted per post-op anesthesia progress note. History of elbow surgery R/L Nausea and vomiting after administration of anesthetic agent with cholecystectomy History of cardiac cath 2006 > CABG x3 Status post lumbar spinal fusion L2-5 posterior decompression and fusion August 2019 Dr. Perez History of esophagogastroduodenoscopy (EGD) History of colonoscopy History of tooth extraction S/P left knee arthroscopy H/O repair of right rotator cuff H/O repair of left rotator cuff x2 History of cataract extraction R/L History of cholecystectomy Hx of CABG S/P CABG X 3 (2006) Family History Sister Family history of diabetes mellitus Cancer Father Hypertension Other No family history of adverse response to anesthesia Social History Smoking Status: Former smoker Tobacco Type: Pipe Cigarettes Per Day: Quit early ; Second Hand Exposure: No; Do You Dip or Chew Tobacco: No; Hx Alcohol Use: No Hx Substance Use: No Preferred Language: French Communication Ability: Effective Visual Impairment: Limited Hearing Ability: Normal Statistics Tutor Required: No Beliefs That Will Affect Care: None marital status: Current Living Situation: Spouse current occupational status: retired Other Information That Helps Us Care for You: No Feels Safe at Home: Yes Safety Concerns: Feels Safe At This Time Assistive Devices: Walker Assistive Devices Comment: Patient states that he has a walker but doesn't use it like he should Review of Systems Review of Systems: All systems reviewed & are unremarkable except as noted in Subjective Physical Exam Constitutional: WD/WN, vitals as above Respiratory: normal respiratory effort, lungs clear to auscultation Cardiovascular: RRR, no murmur, no edema Gastrointestinal (Abdomen): Inspection/Auscultation: normal bowel sounds Percussion/Palpation: + abdomen tender, + guarding and abdomen soft; abdomen not rigid Psychiatric: A+Ox3, euthymic affect Results & Data Vital Signs (Past 12 Hours) Vital Signs Temp Pulse Pulse Resp BP BP Pulse Ox 10/13/23 08:59 79 18 124/74 97 10/13/23 07:30 84 10/13/23 06:00 85 22 127/68 95 10/13/23 04:00 82 22 111/63 94 10/13/23 03:00 109 H 88 L 10/13/23 02:41 36.8 C 86 16 142/83 H 94 10/13/23 02:30 87 21 142/83 H 95 10/13/23 02:03 97 H 24 151/87 H 92 10/13/23 01:30 83 21 128/71 94 10/13/23 01:00 82 22 120/62 92 10/13/23 00:54 86 10/13/23 00:30 83 23 130/68 92 10/13/23 00:00 92 H 23 120/73 94 10/12/23 23:30 92 H 15 121/66 96 10/12/23 23:18 96 H 16 139/76 95 10/12/23 22:30 117/75 10/12/23 22:30 92 H 24 10/12/23 22:20 93 H O2 Del Method 10/13/23 08:59 Room Air 10/13/23 07:30 10/13/23 06:00 10/13/23 04:00 10/13/23 03:00 10/13/23 02:41 Room Air 10/13/23 02:30 10/13/23 02:03 Room Air 10/13/23 01:30 Room Air 10/13/23 01:00 Room Air 10/13/23 00:54 10/13/23 00:30 Room Air 10/13/23 00:00 Room Air 10/12/23 23:30 Room Air 10/12/23 23:18 Room Air 10/12/23 22:30 10/12/23 22:30 10/12/23 22:20 Diagnostic Findings Laboratory Results WBC 7.03 K/ul (4.8-10.8) 10/12/23 20:50 RBC 3.52 M/uL (4.70-6.10) L 10/12/23 20:50 Hgb 9.2 g/dl (14.0-18.0) L 10/13/23 08:27 Hct 29.9 % (42.0-52.0) L 10/13/23 08:27 MCV 92.0 fL (80.0-100.0) 10/12/23 20:50 MCH 28.1 pg (25.0-34.0) 10/12/23 20:50 MCHC 30.6 g/dL (32.0-36.0) L 10/12/23 20:50 RDW Std Deviation 56.8 fL (36.4-46.3) H 10/12/23 20:50 RDW Coeff of Ari 17.4 % (11.5-14.5) H 10/12/23 20:50 Plt Count 166 K/uL (130-400) 10/12/23 20:50 MPV 9.1 fL (9.4-12.4) L 10/12/23 20:50 PT 12.1 Seconds (9.0-12.0) H 10/12/23 20:50 INR 1.1 (0.9-1.1) 10/12/23 20:50 APTT 29 Seconds (21-31) 10/12/23 20:50 PTT Ratio 1.0 10/12/23 20:50 Sodium 138 mmol/L (136-145) 10/13/23 02:32 Potassium 4.0 mmol/L (3.5-5.1) 10/13/23 02:32 Chloride 104 mmol/L (98-107) 10/13/23 02:32 Carbon Dioxide 28 mmol/L (21-32) 10/13/23 02:32 Anion Gap 6 (3-11) 10/13/23 02:32 BUN 16 mg/dl (6-23) 10/13/23 02:32 Creatinine 1.21 mg/dl (0.6-1.4) 10/13/23 02:32 Est Cr Clr Drug Dosing 37.3 ml/min 10/13/23 02:32 Est GFR ( Amer) 61.1 ml/min 10/13/23 02:32 Est GFR (Non-Af Amer) 52.8 ml/min 10/13/23 02:32 BUN/Creatinine Ratio 13.2 (10-20) 10/13/23 02:32 Glucose 147 mg/dl (70-99(Fasting)) H 10/13/23 02:32 POC Glucose 151 mg/dl (70-99) H 10/13/23 06:47 Estimat Average Glucose 203 mg/dl 10/13/23 02:32 Hemoglobin A1c 8.7 % (4.5-5.6) H 10/13/23 02:32 Calcium 8.4 mg/dl (8.6-10.3) L 10/13/23 02:32 Phosphorus 3.2 mg/dl (2.5-4.9) 10/13/23 02:32 Magnesium 2.1 mg/dl (1.7-2.4) 10/13/23 02:32 Total Bilirubin 0.5 mg/dl (0.2-1.0) 10/12/23 20:50 AST 18 U/L (13-39) 10/12/23 20:50 ALT 15 U/L (7-52) 10/12/23 20:50 Alkaline Phosphatase 72 U/L (34-104) 10/12/23 20:50 Troponin I High Sens 10.0 pg/ml (0-20) 10/12/23 20:50 Total Protein 6.2 gm/dl (6.0-8.3) 10/12/23 20:50 Albumin 3.3 gm/dl (3.4-5.0) L 10/13/23 02:32 Globulin 2.8 gm/dl (2.5-4.0) 10/12/23 20:50 Albumin/Globulin Ratio 1.2 (0.9-2) 10/12/23 20:50 POC Stool Occult Blood Positive (Negative) A 10/12/23 22:22 Stl C. diff Tox B Gene Positive Cdiff Gene (Neg) H 10/13/23 01:16 Stl C.difficile Tox A&B Positive Cdiff Toxin (Negative) A* 10/13/23 01:16 Blood Type O Negative 10/12/23 21:01 Antibody Screen NEGATIVE 10/12/23 21:01 PG Care Time/CCT Total # of Minutes Spent Total Time Spent with Patient: Total time spent is greater than 50% in coordination of care (as documented) at patient's floor/unit and/or counseling patient: Coding Level of Care Code 35587 INT INP/OBS CARE 3/75MIN Diagnoses C. difficile colitis A04.72 Lower GI bleed K92.2 Presence of stent in left circumflex coronary artery Z95.5
[2023-10-13] MEDS: ACETAMINOPHEN 1,000 MG/100 ML VIAL IV PRN (11:21)
[2023-10-13] MEDS: BENZONATATE 100 MG CAPSULE PO PRN (11:26)
--- NOTE | 2023-10-13 13:35 | Electrocardiogram Report ---
Test Reason : Blood Pressure : / mmHG Vent. Rate : 094 BPM Atrial Rate : 094 BPM P-R Int : 168 ms QRS Dur : 098 ms QT Int : 346 ms P-R-T Axes : 030 -18 080 degrees QTc Int : 432 ms Normal sinus rhythm Minimal voltage criteria for LVH, may be normal variant ( R in aVL ) Inferior infarct (cited on or before 19-DEC-2022) Abnormal ECG When compared with ECG of 19-DEC-2022 11:04, Premature atrial complexes are no longer Present Nonspecific T wave abnormality now evident in Lateral leads Confirmed by Gaurav Matthew ([id number]) on 10/13/2023 1:34:53 PM Referred By: REFERRED SELF Confirmed By:Gaurav Matthew
[2023-10-13] MEDS ORDERED: Nursing to Pharmacy Communication SCH (14:30)
[2023-10-13 14:35] LABS: Hematocrit (blood only) 32.8 % (42.0-52.0); Hemoglobin 9.9 g/dl (14.0-18.0)
--- NOTE | 2023-10-13 15:10 | Hospitalist Progress Note ---
Date of Service October 13, 2023 Assessment & Plan (1) Lower GI bleed: (2) C. difficile colitis: (3) Presence of stent in left circumflex coronary artery: (4) BPH w urinary obs/LUTS: (5) Rheumatoid arthritis: (6) Type 2 diabetes mellitus: (7) CAD (coronary artery disease): (8) A-fib: (9) Idiopathic polyneuropathy: Plan Lower GI bleed- Still having mild bloody stool Will continue to hold aspirin, Plavix, Eliquis and prednisone GI has evaluated, no plans for any procedure Resume diet Pantoprazole 40 mg changed from by mouth twice daily to IV twice daily Zofran 4 mg IV every 6 hours as needed NSS plus KCl 20 mEq at 80 mL/h Atrial fibrillation/CAD/overlapping stents x 2 in left circumflex last week- Patient had been on aspirin and Eliquis prior to catheterization on 10/09/23. Plavix had been added until , where the plan was for aspirin to be discontinued, and patient would continue on Plavix and Eliquis. All will be held until GI and cardiology assessments Blood pressure is in low normal range at this time, and his amlodipine, isosorbide mononitrate, metoprolol succinate and telmisartan will be held C. difficile colitis- Patient reports having had diarrhea since he was on 1 week of amoxicillin 09/01/2023. C. difficile toxin testing added is gene and antigen positive Placed on C. difficile precautions Start vancomycin 125 mg p.o. 4 times daily Unclear how much the GI bleeding is related to C. difficile colitis, however, the addition of Plavix last week for DAPT, certainly had to contribute Rheumatoid arthritis- On methotrexate 15 mg by mouth weekly Holding prednisone 5 mg every morning as noted above If RA flares, or placed on IV steroids Admission and Anticipated Discharge Date Admission Date: October 12, 2023 Subjective Patient seen and examined, still having some trace bloody diarrhea and some mild abdominal pain Review of Systems Review of Systems: All systems reviewed are negative, apart from the ones contained in the history. Physical Exam Physical Exam: The patient is awake, alert and oriented 3, well developed and well nourished, normocephalic and atraumatic, lying in bed and in no acute distress. HEENT--PERRL, EOMI, mucous membranes and oropharynx mildly dry Neck--supple. No JVD. No bruits. Thyroid normal, trachea midline, no adenopathy. Heart--normal S1 and S2. No murmurs, rubs or gallops. Lungs--clear bilaterally, no respiratory distress, no accessory muscle use. Abdomen--normal bowel sounds and soft. Extremities--no cyanosis or clubbing. No edema. Dermatologic--normal skin turgor, normal color, no abnormal lymph nodes, no rash. Neurologic--cranial nerves II through XII grossly intact. Rheumatologic--normal range of motion. Psychiatric--normal affect. Results & Data Results & Data Vital Signs (Past 12 Hours) Vital Signs Pulse Pulse Resp BP BP Pulse Ox O2 Del Method 10/13/23 08:59 79 18 124/74 97 Room Air 10/13/23 07:30 84 10/13/23 06:00 85 22 127/68 95 10/13/23 04:00 82 22 111/63 94 PG Care Time/CCT Total # of Minutes Spent Total Time Spent with Patient: Total time spent is greater than 50% in coordination of care (as documented) at patient's floor/unit and/or counseling patient: Coding Level of Care Code 67324 SUB INP/OBS CARE 2/35MIN Diagnoses Lower GI bleed K92.2 C. difficile colitis A04.72 Presence of stent in left circumflex coronary artery Z95.5 BPH w urinary obs/LUTS N40.1; N13.8 Rheumatoid arthritis M06.9 Type 2 diabetes mellitus E11.9 CAD (coronary artery disease) I25.10 A-fib I48.91 Idiopathic polyneuropathy G60.9 Time Spent (min) 35
[2023-10-13 20:58] LABS: Hematocrit (blood only) 33.3 % (42.0-52.0); Hemoglobin 10.4 g/dl (14.0-18.0)
[2023-10-13] MEDS: ASPIRIN 81 MG ECTAB PO SCH (21:08)
[2023-10-14 07:42] LABS: Albumin Level 3.2 gm/dl (3.4-5.0); BUN Creatinine Ratio 15.5 (10-20); Calcium 8.4 mg/dl (8.6-10.3); Creatinine Clr Calc Pharmacy 41.1 ml/min; Est GFR (African American) 68.6 ml/min; Est GFR (Non-African American) 59.2 ml/min; Magnesium 2.2 mg/dl (1.7-2.4); Phosphorus 3.3 mg/dl (2.5-4.9); Potassium 4.3 mmol/L (3.5-5.1)
[2023-10-14] MEDS: CLOPIDOGREL BISULFATE 75 MG TAB PO SCH (08:10)
--- NOTE | 2023-10-14 12:38 | Discharge Summary ---
Date of Service October 14, 2023 Admission HPI Per Admitting Provider The patient is an 88-year-old male with a past medical history including lumbar stenosis with neurogenic claudication, atrial fibrillation with RVR, demand ischemia, idiopathic polyneuropathy, BPH with LUTS, RA, postlaminectomy syndrome, CAD, sleep apnea, diabetes mellitus type 2 and GERD. The patient has had diarrhea since about September 01, after he completed a week of amoxicillin for urinary tract infection. The patient had been at [facility] on 10/09/2023, where he underwent a cardiac catheterization, with 2 overlapping stents placed in the left circumflex artery. He had been on aspirin for CAD prevention, and Eliquis for atrial fibrillation, and at that time had Plavix added for 7 days, with plans to change to Plavix plus Eliquis without aspirin on 10/16/2023. He was also started on tamsulosin 2 weeks ago. He continues on prednisone for his rheumatoid arthritis. Patient noted blood on toilet paper, and daughter noted blood in the commode while in the ED, patient was referred for evaluation when hemoglobin returned at 9.9, compared to 11.7 at last testing Principal Diagnosis GI bleed secondary to C. difficile Discharge Exam The patient is awake, alert and oriented 3, well developed and well nourished, normocephalic and atraumatic, lying in bed and in no acute distress. HEENT--PERRL, EOMI, mucous membranes and oropharynx mildly dry Neck--supple. No JVD. No bruits. Thyroid normal, trachea midline, no adenopathy. Heart--normal S1 and S2. No murmurs, rubs or gallops. Lungs--clear bilaterally, no respiratory distress, no accessory muscle use. Abdomen--normal bowel sounds and soft. Extremities--no cyanosis or clubbing. No edema. Dermatologic--normal skin turgor, normal color, no abnormal lymph nodes, no rash. Neurologic--cranial nerves II through XII grossly intact. Rheumatologic--normal range of motion. Psychiatric--normal affect. Discharge Data Allergies Allergy/AdvReac Type Severity Reaction Status Date / Time No Known Allergies Allergy Mild NONE Verified 10/12/23 21:05 Consultations 10/12/23 22:19 ED Decision to Admit Stat 10/13/23 02:17 Consult Gastroenterology Routine Hospital Course (1) Lower GI bleed: (2) C. difficile colitis: (3) Presence of stent in left circumflex coronary artery: (4) BPH w urinary obs/LUTS: (5) Rheumatoid arthritis: (6) Type 2 diabetes mellitus: (7) CAD (coronary artery disease): (8) A-fib: (9) Idiopathic polyneuropathy: Plan Lower GI bleed- GI bleed secondary to C. difficile and also anticoagulation Still having mild bloody stool Will continue to hold aspirin, Plavix, Eliquis and prednisone GI has evaluated, no plans for any procedure Resume diet Pantoprazole 40 mg changed from by mouth twice daily to IV twice daily Zofran 4 mg IV every 6 hours as needed NSS plus KCl 20 mEq at 80 mL/h Atrial fibrillation/CAD/overlapping stents x 2 in left circumflex last week- Patient had been on aspirin and Eliquis prior to catheterization on 10/09/23. Plavix had been added until , where the plan was for aspirin to be discontinued, and patient would continue on Plavix and Eliquis. All will be held until GI and cardiology assessments Blood pressure is in low normal range at this time, and his amlodipine, isosorbide mononitrate, metoprolol succinate and telmisartan will be held C. difficile colitis- Patient reports having had diarrhea since he was on 1 week of amoxicillin 09/01/2023. C. difficile toxin testing added is gene and antigen positive Placed on C. difficile precautions Start vancomycin 125 mg p.o. 4 times daily Unclear how much the GI bleeding is related to C. difficile colitis, however, the addition of Plavix last week for DAPT, certainly had to contribute Rheumatoid arthritis- On methotrexate 15 mg by mouth weekly Holding prednisone 5 mg every morning as noted above If RA flares, or placed on IV steroids Blood loss anemia Total Time Total Time Spent Total Time Spent (In Minutes): 35 Discharge Plan Discharge Items Patient Disposition: Home - Self-Care Reason For Visit: [facility] GI BLEED Discharge Diagnosis: C. difficile colitis Activity: Resume your previous activity Non-emergency contact: Primary Care Provider Call non-emergency contact if: you have any medication questions Follow-up/Referrals: Carlos Kraft DO [Primary Care Provider] - 10/21/23 1:25 pm (with Dr. Marni Alexandre. ) Diet: Regular Addtl Attending Provider Instructions: Please make appointment to follow-up with her regular PCP Pending Studies at Discharge: No Stand-Alone Forms: My [facility], Smoking Cessation Medications and DC Order Prescriptions: New vancomycin 1,000 mg Recon Soln 125 mg PO Q6H 8 Days Qty: 10 0RF Continued apixaban [Eliquis] 5 mg tablet 5 mg PO BID metoprolol succinate 25 mg tablet extended release 24 hr 25 mg PO QPM tamsulosin 0.4 mg capsule 0.4 mg PO DAILY Qty: 30 2RF prednisone 5 mg Tablet 5 mg PO QAM aspirin 81 mg Tablet,Delayed Release (Dr/Ec) 81 mg PO QPM methotrexate sodium 2.5 mg Tablet 15 mg PO WK Rx Instructions: sundays folic acid 1 mg Tablet 1 mg PO QPM B-complex with vitamin C [Super B Complex-Vitamin C] Tablet 1 tab PO QAM coenzyme Q10 [CoQ-10] 100 mg Capsule 100 mg PO QPM cholecalciferol (vitamin D3) [Vitamin D3] 1,000 unit Tablet 2,000 unit PO QAM pantoprazole [Protonix] 40 mg Tablet,Delayed Release (Dr/Ec) 40 mg PO BID Patient Comments: prior to evening meal PreserVision AREDS-2 250-90-40-1 mg Capsule 1 tab PO BID olmesartan [Benicar] 20 mg Tablet 5 mg PO QAM rosuvastatin [Crestor] 10 mg Tablet 10 mg PO QPM Allergy Relief (cetirizine) 10 mg Capsule 10 mg PO QPM (DME) blood-glucose meter [FreeStyle Castle Lite] Kit See Rx Instructions .ROUTE .MEDSUPPLY Qty: 1 0RF Rx Instructions: As directed (DME) FreeStyle Lite Strips Strip See Rx Instructions .ROUTE .MEDSUPPLY Qty: 100 0RF Rx Instructions: As directed (DME) lancets [FreeStyle Lancets] 28 gauge misc See Rx Instructions .ROUTE .MEDSUPPLY Qty: 100 0RF Rx Instructions: As directed (DME) pen needle, diabetic 32 gauge x 5/32" needle See Rx Instructions .ROUTE .MEDSUPPLY Qty: 100 0RF Rx Instructions: As directed insulin glargine [Lantus Solostar U-100 Insulin] 100 unit/mL (3 mL) Insulin Pen 15 unit SUBCUT HS amlodipine 5 mg Tablet 5 mg PO QPM isosorbide mononitrate 30 mg tablet extended release 24 hr 30 mg PO DAILY clopidogrel 75 mg Tablet 75 mg PO DAILY Discharge Orders: Discharge Order (Routine); Ordered 10/14/23 Ordered By: Abdi Voss/Other Patient Handouts: GI Bleeding Causes and Tests, Managing Type 2 Diabetes, Clostridium Difficile Infection, C. Diff Prevent Infection, ED Lower GI Bleeding (Stable), ED Upper GI Bleeding (Stable) Admission Data Admit Date/Time: 10/12/23 23:19 Attending Provider: Abdi Jonas Admit Provider: Eitan Mckeon Primary Care Provider: Carlos Kraft Other Providers: Eitan Mckeon; Matt High Other Interventions: Discharge Summary Assessment (RN) Last Done: 10/14/23 12:00 Coding Level of Care Code 46984 INP/OBS DISCH >30 MIN Diagnoses Lower GI bleed K92.2 C. difficile colitis A04.72 Presence of stent in left circumflex coronary artery Z95.5 BPH w urinary obs/LUTS N40.1; N13.8 Rheumatoid arthritis M06.9 Type 2 diabetes mellitus E11.9 CAD (coronary artery disease) I25.10 A-fib I48.91 Idiopathic polyneuropathy G60.9 Time Spent (min) 35
== END 2023-10-14 12:26 | disposition home or self-care (01) | DRG 813 ==
LOC: ED 20:12 → EDINP 23:19 → SUATTDRO 23:19 → 2S 10-13 02:16